=== PATIENT | male | born 1955 | race Caucasian/White ===

== ENCOUNTER → 2017-06-11 | Outpatient (CLI) | payer OTHER ==
[~2017-06-11] MED LIST: ALBU0.08 INH; ALBU1AER9 PO; ATOR-22 PO; ATRINS NEB; ATV/1 PO; CYAN500T PO; DICY10CA55 PO; GLC/500 PO; KETO2SHA5 TOP; PANT1TAB3 PO; SILD100T PO; SYMIN160 INH; TIOT1SPR PO
--- NOTE | 2017-06-11 10:45 | DIAGNOSTIC IMAGING REPORT ---
CHEST 2 VIEWS ROUTINE CLINICAL HISTORY: Shortness of breath. COMPARISON STUDY: Chest CT July 18, 2015 and chest radiograph May 03, 2016. FINDINGS: Severe emphysema is noted. There is mild lung hyperexpansion. No consolidation is identified to suggest pneumonia. Cardiomediastinal silhouette is normal. Pulmonary vascularity is normal. IMPRESSION: 1. No acute cardiopulmonary findings. 2. Severe emphysema. Electronically signed by: Ricardo Fermin M.D. 06/11/2017 10:44 AM Dictated Date/Time: 06/11/2017 10:39 AM
== END | disposition home or self-care (01) ==
LOC: C.RAD1850 10:21
PROVIDERS: ATTEND Physician Assistant
DX: R06.02 Shortness of breath (principal); J43.9 Emphysema, unspecified

== ENCOUNTER 2022-05-23 04:52 | Inpatient (IN) ==
[2022-05-23] MEDS ORDERED: ALBUT/IPRATROP 3MG/0.5MG NEB 3 ML VIAL INH STA (04:57)
[2022-05-23] MEDS ORDERED: methylPREDNISolone 125 MG/2 ML VIAL IV STA (05:09)
--- NOTE | 2022-05-23 05:09 | Emergency Department Note ---
Impression & Plan Hypoxia ADMIT ED Provider Note HPI: The patient is a 67-year-old gentleman with history of COPD, on 4 L nasal cannula oxygen at baseline, presents to the ED with a chief complaint of shortness of breath that is been ongoing since yesterday afternoon. Patient states his symptoms have been worsening since about 230 yesterday afternoon, he denies any chest pain, on arrival here to the ED he is in respiratory distress, has limited air movement bilaterally, he is able to answer my questions in yes or no but is otherwise not conversational. His is assisting with history. Patient was placed on BiPAP shortly after my initial assessment, he did have improvement in his oxygen saturations from 86% to 98% with a nonrebreather mask. ROS: -Pulmonary: Respiratory distress, COPD exacerbation *10 point review systems was conducted and is otherwise negative unless stated above *Outpatient medications and allergy history reviewed PE: General: Alert, moderate distress secondary to increased work of breathing HEENT: Normocephalic, trachea midline Eyes: Extraocular eye movement is intact, no scleral erythema Pulmonary: Diminished air movement bilaterally Cardio: Regular rate and rhythm GI: Abdomen is soft, nontender : No suprapubic tenderness MSK: No evidence of trauma or malformation of the extremities, no edema Skin: No evidence of rash Neuro: Alert, no focal deficits Psychiatric: Cooperative ekg monitor: - An order was placed for continuous cardiac monitoring - Patient was noted to be in sinus rhythm with a rate of 110 EKG: Rate: 121 Rhythm: Sinus tachycardia Intervals: Within normal limits ST changes: No ST elevation Time: 0505 Interventions provided in ED: -DuoNeb breathing treatment, IV Solu-Medrol, oral Tamiflu Medical Decision Making: Patient presented to the emergency department with respiratory distress, he was placed on BiPAP with good improvement in his work of breathing and oxygenation. His venous blood gas shows evidence of acidosis with a pH of 7.26, PCO2 elevated at 101, patient's mentation and work of breathing is greatly improved following initiation of BiPAP. Chest x-ray does not show any evidence of any pneumonia per my interpretation. Lab work shows evidence of leukocytosis, patient did test positive for influenza A, blood cultures were drawn, will hold off on antibiotics given concern for viral infection as opposed to bacterial infection at this time with influenza A positive status. Lab work otherwise shows chronic anemia, troponin is 17.7, patient denies any chest pain, EKG does not show any acute ischemic changes. I discussed admission with the patient, he is in agreement, case was discussed with the on-call hospitalist for [facility], Dr. Martinez, and the patient was admitted in improved condition for further care for acute hypoxic respiratory failure and COPD exacerbation. * CRITICAL CARE TIME: ( 55 ) minutes -Stabilization of hypoxia with oxygen saturations less than 90% despite nasal cannula oxygen requiring noninvasive positive pressure ventilation for correction, time spent at the bedside, interpretation of diagnostic studies, discussion with other physicians and arrangement of admission Diagnosis: 1. Acute hypercarbic respiratory failure with hypoxia 2. Influenza A infection 3. Chronic anemia 4. Leukocytosis, nonspecific Disposition: Admission Mariano Phillips DO Emergency Medicine Past Med/Surg History Medical History (Updated 05/23/22 @ 07:36 by Mariano Phillips DO) Abdominal pain Acute exacerbation of chronic obstructive pulmonary disease (COPD) Acute on chronic respiratory failure with hypoxia and hypercapnia Anxiety Anxiety Blood CO2 increased Chronic dyspnea Chronic hypercapnic respiratory failure Chronic obstructive pulmonary disease WEARS O2 AT 3L CONTINUOUS AT HS 2L O2 DURING DAY PRN Chronic obstructive pulmonary disease COPD exacerbation Dependence on supplemental oxygen Depression DM (diabetes mellitus), type 2 with neurological complications Dyslipidemia End stage COPD Fatty liver Fatty liver GERD (gastroesophageal reflux disease) GERD without esophagitis History of nicotine dependence Hyperlipidemia Hyperlipidemia Hypoxemia Irritable bowel disease Leukocytosis Nocturnal hypoxemia Osteoarthritis Post traumatic stress disorder Pulmonary air trapping Pulmonary emphysema Shortness of breath Surgical History History of cardiac cath NO STENTS History of colonoscopy History of discectomy LUMBAR DISCECTOMY History of herniorrhaphy INGUINAL RT/LEFT History of tonsillectomy History of tooth extraction Family History Unknown Family history of diabetes mellitus Family hx colonic polyps Social History Smoking Status: Former smoker Second Hand Exposure: No; Hx Alcohol Use: No Hx Substance Use: No Preferred Language: Stateless Communication Ability: Effective Visual Impairment: No Limitations Clinical Nurse Required: No Beliefs That Will Affect Care: None Current Living Situation: Spouse Feels Safe at Home: Yes Assistive Devices: Oxygen - Continuous Allergies Allergies Allergy/AdvReac Type Severity Reaction Status Date / Time bupropion Allergy Intermediate RASH Verified 05/02/22 12:08 pravastatin Allergy Mild HIVES Verified 05/02/22 12:08 Home Meds Home Medications Medication Instructions Recorded Confirmed albuterol sulfate 90 mcg/actuation 1 puff inhalation QID PRN 01/30/18 05/02/22 aerosol inhaler Shortness Of Breath aspirin 81 mg chewable tablet 81 mg PO DIRECTED 01/30/18 05/02/22 dicyclomine 10 mg capsule 10 mg PO QID PRN Abdominal Pain 01/30/18 05/02/22 lorazepam 1 mg tablet 1 mg PO TID PRN Anxiety 01/30/18 05/02/22 cyanocobalamin (vitamin B-12) 500 1 mcg sublingual 04/24/21 05/02/22 mcg disintegrating tablet,sublingual ketoconazole 2 % shampoo topical 04/24/21 05/02/22 lancets 30 gauge (OneTouch Delica 04/24/21 05/02/22 Lancets) lancets 30 gauge (OneTouch Delica 04/24/21 05/02/22 Lancets) sildenafil 100 mg tablet (Viagra) mg PO .TAKE DIRECTED. 04/24/21 05/02/22 venlafaxine 37.5 mg 37.5 mg PO DAILY 08/30/21 05/02/22 capsule,extended release 24 hr (Effexor XR) Previous Rx's Medication Instructions Recorded ipratropium 0.5 mg-albuterol 3 mg 3 ml inhalation QID PRN wheezing 06/22/19 (2.5 mg base)/3 mL nebulization #180 mL soln Oxygen Home #1 ea 07/06/20 Miscellaneous Pulmonary Supply #1 ea 08/30/21 Miscellaneous Pulmonary Supply #1 ea 09/01/21 furosemide 20 mg tablet (Lasix) 20 mg PO DAILY #30 tabs 10/09/21 ondansetron 4 mg disintegrating 4 mg PO Q6H PRN nausea and 02/26/22 tablet vomiting #12 tabs tiotropium 2.5 mcg-olodaterol 2.5 2 puff inhalation DAILY #4 grams 05/14/22 mcg/actuation mist for inhalation (Stiolto Respimat) fluticasone furoate 100 1 inh inhalation DAILY #30 ea 05/15/22 mcg/actuation blister powder for inhalation (Arnuity Ellipta) Results & Data (ED) Vital Signs Vital Signs - 24 hr 05/23/22 04:54 05/23/22 05:20 05/23/22 05:26 Temperature 36.6 C Temperature Source Temporal Artery Scan Pulse Rate 107 H Pulse Rate [Finger] Pulse Rate from SpO2 Sensor Respiratory Rate 32 H Respiratory Effort / Characteristics Labored Labored Retracting Tripoding Respiratory Depth Respiratory Pattern Rapid/Shallow Tachypnea Blood Pressure 210/121 H Blood Pressure [Right Arm] Blood Pressure Mean 150 Blood Pressure Mean [Right Arm] Blood Pressure Position Sitting Pulse Oximetry 86 L Oxygen Delivery Method Nasal Cannula BiPAP Oxygen Flow Rate 4 Fraction of Inspired Oxygen Sepsis Recent Fever Within 48 Hours Yes Sepsis New/Unexplained Change in Mental Status No Sepsis Action Taken by Nursing Physician Notified 05/23/22 05:26 05/23/22 05:33 05/23/22 05:36 Temperature Temperature Source Pulse Rate 119 H Pulse Rate [Finger] 110 H Pulse Rate from SpO2 Sensor Respiratory Rate 21 21 Respiratory Effort / Characteristics Spontaneous Labored Short of Breath Spontaneous Labored Short of Breath Respiratory Depth Respiratory Pattern Blood Pressure Blood Pressure [Right Arm] Blood Pressure Mean Blood Pressure Mean [Right Arm] Blood Pressure Position Pulse Oximetry 98 98 98 Oxygen Delivery Method BiPAP BiPAP Oxygen Flow Rate Fraction of Inspired Oxygen 40 40 Sepsis Recent Fever Within 48 Hours Sepsis New/Unexplained Change in Mental Status Sepsis Action Taken by Nursing 05/23/22 05:08 05/23/22 05:30 05/23/22 06:01 Temperature Temperature Source Pulse Rate 119 H 112 H 108 H Pulse Rate [Finger] Pulse Rate from SpO2 Sensor 118 H 112 H 99 H Respiratory Rate 18 23 21 Respiratory Effort / Characteristics Respiratory Depth Respiratory Pattern Blood Pressure 140/99 125/92 165/90 H Blood Pressure [Right Arm] Blood Pressure Mean 112 103 115 Blood Pressure Mean [Right Arm] Blood Pressure Position Pulse Oximetry 98 98 100 Oxygen Delivery Method Oxygen Flow Rate Fraction of Inspired Oxygen Sepsis Recent Fever Within 48 Hours Sepsis New/Unexplained Change in Mental Status Sepsis Action Taken by Nursing 05/23/22 07:08 05/23/22 07:15 Temperature Temperature Source Pulse Rate 101 H Pulse Rate [Finger] 101 H Pulse Rate from SpO2 Sensor Respiratory Rate 21 20 Respiratory Effort / Characteristics Non-Labored Spontaneous Non-Labored Spontaneous Respiratory Depth Normal Normal Respiratory Pattern Regular Blood Pressure Blood Pressure [Right Arm] 133/88 Blood Pressure Mean Blood Pressure Mean [Right Arm] 103 Blood Pressure Position Pulse Oximetry 99 96 Oxygen Delivery Method BiPAP Oxygen Flow Rate Fraction of Inspired Oxygen 30 Sepsis Recent Fever Within 48 Hours Sepsis New/Unexplained Change in Mental Status Sepsis Action Taken by Nursing Laboratory Data Result diagrams: 05/23/22 05:10 05/23/22 05:10 Lab Results 05/23/22 05/23/22 05/23/22 Range/Units 05:05 05:10 05:10 WBC 14.16 H (4.8-10.8) K/ul RBC 4.29 L (4.63-6.08) M/uL Hgb 12.6 L (14.0-18.0) g/dl Hct 40.8 (40.1-51.0) % MCV 95.1 (80.0-100.0) fL MCH 29.4 (25.0-34.0) pg MCHC 30.9 L (32.0-36.0) g/dL RDW Std Deviation 40.9 (36.4-46.3) fL RDW Coeff of Ashley 11.9 (11.5-14.5) % Plt Count 357 (130-400) K/uL MPV 9.8 (9.4-12.4) fL Immature Gran % (Auto) 0.5 % Neut % (Auto) 92.3 % Lymph % (Auto) 2.0 % Nicollet % (Auto) 4.9 % Eos % (Auto) 0.0 % Baso % (Auto) 0.3 % Neut # (Auto) 13.07 H (1.4-6.5) K/uL Lymph # (Auto) 0.29 L (1.2-3.4) K/uL Nicol[place] # (Auto) 0.69 (0.24-0.82) K/uL Eos # (Auto) 0.00 (0-0.50) K/uL Baso # (Auto) 0.04 (0-0.2) K/uL Immature Gran # (Auto) 0.07 H (0.00-0.02) K/uL PT 10.3 (9.0-12.0) Seconds INR 1.0 (0.9-1.1) APTT 27.2 (21.0-31.0) Seconds PTT Ratio 1.0 VBG pH (7.36-7.41) VBG pCO2 (38-50) mmHg VBG pO2 mmHg VBG HCO3 mmol/L VBG O2 Saturation % VBG Base Excess mEq/L Sodium (136-145) mmol/L Potassium (3.5-5.1) mmol/L Chloride (98-107) mmol/L Carbon Dioxide (21-32) mmol/L Anion Gap (3-11) BUN (6-23) mg/dl Creatinine (0.6-1.4) mg/dl Est Cr Clr Drug Dosing Est GFR ( Amer) ml/min Est GFR (Non-Af Amer) ml/min BUN/Creatinine Ratio (10-20) Glucose (70-99(Fasting)) mg/dl Calcium (8.5-10.1) mg/dl Total Bilirubin (0.2-1.0) mg/dl AST (13-39) U/L ALT (7-52) U/L Alkaline Phosphatase (34-104) U/L Troponin I High Sens (0-20) pg/ml Total Protein (6.0-8.3) gm/dl Albumin (3.4-5.0) gm/dl Globulin (2.5-4.0) gm/dl Albumin/Globulin Ratio (0.9-2) SARS-CoV-2 (PCR) NEGATIVE (Negative) Influenza Type A (PCR) Positive A* (Neg) Influenza Type B (PCR) Negative (Neg) RSV (RT-PCR) Negative (Neg) 05/23/22 05/23/22 Range/Units 05:10 05:10 WBC (4.8-10.8) K/ul RBC (4.63-6.08) M/uL Hgb (14.0-18.0) g/dl Hct (40.1-51.0) % MCV (80.0-100.0) fL MCH (25.0-34.0) pg MCHC (32.0-36.0) g/dL RDW Std Deviation (36.4-46.3) fL RDW Coeff of Ashley (11.5-14.5) % Plt Count (130-400) K/uL MPV (9.4-12.4) fL Immature Gran % (Auto) % Neut % (Auto) % Lymph % (Auto) % Nicollet % (Auto) % Eos % (Auto) % Baso % (Auto) % Neut # (Auto) (1.4-6.5) K/uL Lymph # (Auto) (1.2-3.4) K/uL Nicollet # (Auto) (0.24-0.82) K/uL Eos # (Auto) (0-0.50) K/uL Baso # (Auto) (0-0.2) K/uL Immature Gran # (Auto) (0.00-0.02) K/uL PT (9.0-12.0) Seconds INR (0.9-1.1) APTT (21.0-31.0) Seconds PTT Ratio VBG pH 7.26 L (7.36-7.41) VBG pCO2 101 H (38-50) mmHg VBG pO2 62 mmHg VBG HCO3 45 mmol/L VBG O2 Saturation 90.7 % VBG Base Excess 13.5 mEq/L Sodium 138 (136-145) mmol/L Potassium 4.5 (3.5-5.1) mmol/L Chloride 94 L (98-107) mmol/L Carbon Dioxide 37 H (21-32) mmol/L Anion Gap 7 (3-11) BUN 14 (6-23) mg/dl Creatinine 0.85 (0.6-1.4) mg/dl Est Cr Clr Drug Dosing Not Reportable Est GFR ( Amer) 104.5 ml/min Est GFR (Non-Af Amer) 90.2 ml/min BUN/Creatinine Ratio 16.5 (10-20) Glucose 177 H (70-99(Fasting)) mg/dl Calcium 9.2 (8.5-10.1) mg/dl Total Bilirubin 0.3 (0.2-1.0) mg/dl AST 24 (13-39) U/L ALT 18 (7-52) U/L Alkaline Phosphatase 97 (34-104) U/L Troponin I High Sens 17.7 (0-20) pg/ml Total Protein 8.1 (6.0-8.3) gm/dl Albumin 4.7 (3.4-5.0) gm/dl Globulin 3.4 (2.5-4.0) gm/dl Albumin/Globulin Ratio 1.4 (0.9-2) SARS-CoV-2 (PCR) (Negative) Influenza Type A (PCR) (Neg) Influenza Type B (PCR) (Neg) RSV (RT-PCR) (Neg) Administered Medications Discontinued Medications Albuterol (Albut/Ipratrop 3mg/0.5mg Neb 3 Ml Vial) 3 ml INH NOW STA Stop: 05/23/22 04:58 Last Admin: 05/23/22 05:36 Dose: 3 ml Documented By: [email or web address] Methylprednisolone (Methylprednisolone 125 Mg/2 Ml Vial) 125 mg IV NOW STA Stop: 05/23/22 05:10 Last Admin: 05/23/22 05:14 Dose: 125 mg Documented By: HH Oseltamivir Phosphate (Oseltamivir Phosphate 75 Mg Cap) 75 mg PO NOW STA; Protocol Stop: 05/23/22 06:42 Last Admin: 05/23/22 07:16 Dose: 75 mg Documented By: NMS Imaging Data Radiologist's Impression: Chest X-Ray 05/23/22 04:59 XR chest 1V portable CLINICAL HISTORY: Dyspnea. COMPARISON STUDY: Chest CT July 18, 2015. Chest radiograph December 29, 2018. FINDINGS: Severe emphysema is noted. There is no pneumothorax or pleural effusion. There is no consolidation to suggest pneumonia. Cardiac size is normal. Mediastinal contours are normal. IMPRESSION: No acute cardiopulmonary findings. Severe emphysema. ACT 112: Negative or not required by law. Electronically signed by: Ricardo Fermin M.D. 05/23/2022 7:01 AM Discharge Plan Visit Data Chief Complaint: Shortness of Breath/Dyspnea Stated Complaint: SOB, ASPIRATING ED Provider: Mariano Phillips Discharge Problem: Hypoxia Patient Disposition: Admitted As Inpatient Forms Stand Alone Forms: [facility] Prescriptions Prescriptions: No Action ipratropium-albuterol 0.5 mg-3 mg(2.5 mg base)/3 mL solution for nebulization 3 ml INH QID PRN (Reason: wheezing) Qty: 180 3RF (DME) Oxygen Home Liters Per Minute See Rx Instructions .MEDSUPPLY Qty: 1 0RF Rx Instructions: Please provide humidification for the oxygen concentrator. Lifetime need. (DME) Miscellaneous Pulmonary Supply Misc See Rx Instructions .Route Qty: 1 0RF Rx Instructions: Dreamstation AVAPS, NIMV settings should be AVAPS-AE; Breath rate: auto; Inspiratory time: auto; Sigh: off; Tidal Volume: 350-450, PS min: 4-10 PS max: 12-20; EPAP min: 6-10; EPAP max: 10-16; AVAPS rate: 14 during sleep and as needed furosemide [Lasix] 20 mg tablet 20 mg PO DAILY Qty: 30 2RF Stiolto Respimat 2.5-2.5 mcg/actuation mist 2 puff inhalation DAILY Qty: 4 3RF Arnuity Ellipta 100 mcg/actuation blister with device 1 inh inhalation DAILY Qty: 30 2RF ketoconazole 2 % shampoo topical sildenafil [Viagra] 100 mg tablet PO .TAKE DIRECTED. (DME) lancets [OneTouch Delica Lancets] 30 gauge misc See Rx Instructions .Route Rx Instructions: As directed (DME) lancets [OneTouch Delica Lancets] 30 gauge misc See Rx Instructions .Route Rx Instructions: As directed cyanocobalamin (vitamin B-12) 500 mcg tablet,disintegrating 1 mcg sublingual venlafaxine [Effexor XR] 37.5 mg capsule,extended release 24hr 37.5 mg PO DAILY (DME) Miscellaneous Pulmonary Supply Misc See Rx Instructions .Route Qty: 1 0RF Rx Instructions: Trilogy device aspirin 81 mg Tablet,Chewable 81 mg PO DIRECTED Rx Instructions: 2XWK lorazepam 1 mg Tablet 1 mg PO TID PRN (Reason: Anxiety) albuterol sulfate 90 mcg/actuation Hfa Aerosol Inhaler 1 puff INHALATION QID PRN (Reason: Shortness Of Breath) dicyclomine 10 mg Capsule 10 mg PO QID PRN (Reason: Abdominal Pain) ondansetron 4 mg tablet,disintegrating 4 mg PO Q6H PRN (Reason: nausea and vomiting) Qty: 12 0RF Referrals Referrals: PCP,NO [Physician] -
[2022-05-23 05:23] LABS: Hematocrit (blood only) 40.8 % (40.1-51.0); Hemoglobin 12.6 g/dl (14.0-18.0); Mean Corpuscular Hemoglobin 29.4 pg (25.0-34.0); Mean Corpuscular Hgb Conc 30.9 g/dL (32.0-36.0); Mean Corpuscular Volume 95.1 fL (80.0-100.0); Mean Platelet Volume 9.8 fL (9.4-12.4); Platelet Count 357 K/uL (130-400); RDW Coefficient of Variation 11.9 % (11.5-14.5); RDW Standard Deviation 40.9 fL (36.4-46.3); Red Blood Count 4.29 M/uL (4.63-6.08); White Blood Count 14.16 K/ul (4.8-10.8)
[2022-05-23 05:25] LABS: Base Excess VBG 13.5 mEq/L; HCO3 VBG 45 mmol/L; Oxygen Saturation VBG 90.7 %; PCO2 VBG 101 mmHg (38-50); PO2 VBG 62 mmHg; pH VBG 7.26 (7.36-7.41)
[2022-05-23 05:43] LABS: Basophils # (auto) 0.04 K/uL (0-0.2); Basophils % (auto) 0.3 %; Immature Granulocytes # (auto) 0.07 K/uL (0.00-0.02); Immature Granulocytes % (auto) 0.5 %; Lymphocytes # (auto) 0.29 K/uL (1.2-3.4); Monocytes # (auto) 0.69 K/uL (0.24-0.82); Monocytes % (auto) 4.9 %; Neutrophils # (auto) 13.07 K/uL (1.4-6.5); Neutrophils % (auto) 92.3 %; Partial Thromboplastin Time 27.2 Seconds (21.0-31.0); Prothrombin Time 10.3 Seconds (9.0-12.0)
[2022-05-23 05:49] LABS: Troponin I High Sensitivity 17.7 pg/ml (0-20)
[2022-05-23 05:52] LABS: Influenza B virus by PCR Negative (Neg); RSV by PCR Negative (Neg); SARS CoV2 RNA(COVID-19) Ceph NEGATIVE (Negative)
[2022-05-23 05:55] LABS: Alanine Aminotransferase 18 U/L (7-52); Albumin Globulin Ratio 1.4 (0.9-2); Albumin Level 4.7 gm/dl (3.4-5.0); Alkaline Phosphatase 97 U/L (34-104); Anion Gap 7 (3-11); Aspartate Aminotransferase 24 U/L (13-39); BUN Creatinine Ratio 16.5 (10-20); Bilirubin,Total 0.3 mg/dl (0.2-1.0); Blood Urea Nitrogen 14 mg/dl (6-23); Calcium 9.2 mg/dl (8.5-10.1); Carbon Dioxide 37 mmol/L (21-32); Chloride 94 mmol/L (98-107); Est GFR (African American) 104.5 ml/min; Est GFR (Non-African American) 90.2 ml/min; Globulin 3.4 gm/dl (2.5-4.0); Glucose 177 mg/dl (70-99(Fasting)); Potassium 4.5 mmol/L (3.5-5.1); Sodium 138 mmol/L (136-145); Total Protein 8.1 gm/dl (6.0-8.3)
[2022-05-23 06:20] LABS: Influenza A virus by PCR Positive (Neg)
[2022-05-23] MEDS ORDERED: OSELTAMIVIR PHOSPHATE 75 MG CAP PO STA (06:41)
--- NOTE | 2022-05-23 07:02 | XRay Report ---
XR chest 1V portable CLINICAL HISTORY: Dyspnea. COMPARISON STUDY: Chest CT July 18, 2015. Chest radiograph December 29, 2018. FINDINGS: Severe emphysema is noted. There is no pneumothorax or pleural effusion. There is no consol idation to suggest pneumonia. Cardiac size is normal. Mediastinal contours are normal. IMPRESSION: No acute cardiopulmonary findings. Severe emphysema. ACT 112: Negative or not required by law. Electronically signed by: Ricardo Fermin M.D. 05/23/2022 7:01 AM
[2022-05-23] MEDS ORDERED: ACETAMINOPHEN 325 MG TAB PO PRN (07:35)
[2022-05-23] MEDS ORDERED: POLYETHYLENE (MIRALAX) 17 GM PACK PO PRN (07:35)
[2022-05-23] MEDS: Patient's WEIGHT Needed SCH ×2 (08:04→09:04)
[2022-05-23 08:38] LABS: Estimated Average Glucose 114 mg/dl; Hemoglobin A1C 5.6 % (4.5-5.6)
[2022-05-23] MEDS: PANTOprazole 40 MG TAB PO SCH (10:16)
[2022-05-23] MEDS: ENOXAPARIN INJ 40 MG/0.4 ML SYR SQ SCH (10:16)
[2022-05-23] MEDS: VENLAFAXINE HCL XR 75 MG CAPXR PO SCH (10:16)
[2022-05-23] MEDS: LORazepam 1 MG TAB PO PRN ×2 (11:02→18:28)
[2022-05-23 11:30] LABS: Appearance Urine Clear (Clear); Bacteria Urine Automated Negative (Negative); Bilirubin Urine Negative (Negative); Blood Urine Negative (Negative); Color Urine Yellow; Glucose Urine UA Negative (Negative); Ketones Urine Trace (Negative); Leukocyte Esterase Urine Negative (Negative); Nitrite Urine Negative (Negative); Protein Urine 1+ (Negative); Specific Gravity Urine 1.025 (1.000-1.030); Urobilinogen Urine Negative (Negative)
[2022-05-23] MEDS ORDERED: LACTATED RINGER'S 500 ML IV ONE (11:42)
--- NOTE | 2022-05-23 14:24 | History & Physical Report ---
Date of Service May 23, 2022 Assessment & Plan (1) Acute on chronic respiratory failure with hypoxia and hypercapnia: Plan: - presented with hypoxia on 4L NC which is home dose - likely in the setting of influenza A infection - CXR without consolidation - started on BiPAP - wean as tolerated - continue steroids and tamiflu for 5 day course - monitor for response (2) COPD exacerbation: Plan: - likely due to influenza - continue steroids and tamiflu as above - continue home inhalers - duoneb prn or shortness of breath (3) Leukocytosis: Plan: - likely due to steroid use a patient ook 60-80mg prior to admission and received 125mg solumedrol in ED - will monitor for now (4) Anxiety: Plan: - stable - continue home venlafaxine - ativan 1mg po prn for anxiety (5) GERD (gastroesophageal reflux disease): Plan: - continue ppi Plan DVT ppx: Lovenox Code Status: Full Code Dispo: PCU Florentin Cross MD Hospital Medicine Admission and Anticipated Discharge Date Admission Date: May 23, 2022 History of Present Illness Chief Complaint: Hypoxia Primary Care Provider: Kanchan Martinez MD The patient is a 67 year old man with COPD/chronic hypoxemic respiratory failure on home O2 4L NC, anxiety, GERD presented with 1 day of increased shortness of breath. He reports that yesterday he felt short of breath and felt like he could not catch his breath. He denied any change in his chronic cough, which is mild at baseline. Denied any fever or chills, decreased PO intake, n/v/d, abdominal pain. Reports he is on 4L of O2 by NC at home and has very limited functional status due to his respiratory status. He reports receiving his flu and COVID vaccines and is up to date on these. He has a home "rescue" p ack for his COPD and started on prednisone 60mg the day prior to admission. Has not had to use steroids for several months prior to this episode. In the ED, vitals were signficant for SpO2 86% on 4L NC, HR 100s. Labs were significant for WBC 14, pH 7.26, pCO2 101, HCO3- 37, influenza A positive. CXR without consolidation. He was given Tamiflu, started on BiPAP and admitted to medicine. Allergies Allergy/AdvReac Type Severity Reaction Status Date / Time bupropion Allergy Intermediate RASH Verified 05/02/22 12:08 pravastatin Allergy Mild HIVES Verified 05/02/22 12:08 Home Medications Medication Instructions Recorded Confirmed Type albuterol sulfate 90 mcg/actuation 1 puff inhalation QID PRN 01/30/18 05/02/22 History aerosol inhaler Shortness Of Breath aspirin 81 mg chewable tablet 81 mg PO DIRECTED 01/30/18 05/02/22 History dicyclomine 10 mg capsule 10 mg PO QID PRN Abdominal Pain 01/30/18 05/02/22 History lorazepam 1 mg tablet 1 mg PO TID PRN Anxiety 01/30/18 05/02/22 History ipratropium 0.5 mg-albuterol 3 mg 3 ml inhalation QID PRN wheezing 06/22/19 08/30/21 Rx (2.5 mg base)/3 mL nebulization #180 mL soln Oxygen Home #1 ea 07/06/20 05/02/22 Rx cyanocobalamin (vitamin B-12) 500 1 mcg sublingual 04/24/21 05/02/22 History mcg disintegrating tablet,sublingual ketoconazole 2 % shampoo topical 04/24/21 05/02/22 History lancets 30 gauge (OneTouch Delica 04/24/21 05/02/22 History Lancets) lancets 30 gauge (OneTouch Delica 04/24/21 05/02/22 History Lancets) sildenafil 100 mg tablet (Viagra) mg PO .TAKE DIRECTED. 04/24/21 05/02/22 History Miscellaneous Pulmonary Supply #1 ea 08/30/21 05/02/22 Rx venlafaxine 37.5 mg 37.5 mg PO DAILY 08/30/21 05/02/22 History capsule,extended release 24 hr (Effexor XR) Miscellaneous Pulmonary Supply #1 ea 09/01/21 05/02/22 Rx furosemide 20 mg tablet (Lasix) 20 mg PO DAILY #30 tabs 10/09/21 05/02/22 Rx ondansetron 4 mg disintegrating 4 mg PO Q6H PRN nausea and 02/26/22 05/02/22 Rx tablet vomiting #12 tabs tiotropium 2.5 mcg-olodaterol 2.5 2 puff inhalation DAILY #4 grams 05/14/22 Rx mcg/actuation mist for inhalation (Stiolto Respimat) fluticasone furoate 100 1 inh inhalation DAILY #30 ea 05/15/22 Rx mcg/actuation blister powder for inhalation (Arnuity Ellipta) Past Med/Surg History Medical History (Updated 05/23/22 @ 14:21 by Florentin Cross MD) Abdominal pain Acute exacerbation of chronic obstructive pulmonary disease (COPD) Acute on chronic respiratory failure with hypoxia and hypercapnia Anxiety Anxiety Blood CO2 increased Chronic dyspnea Chronic hypercapnic respiratory failure Chronic obstructive pulmonary disease WEARS O2 AT 3L CONTINUOUS AT HS 2L O2 DURING DAY PRN Chronic obstructive pulmonary disease COPD exacerbation Dependence on supplemental oxygen Depression DM (diabetes mellitus), type 2 with neurological complications Dyslipidemia End stage COPD Fatty liver Fatty liver GERD (gastroesophageal reflux disease) GERD without esophagitis History of nicotine dependence Hyperlipidemia Hyperlipidemia Hypoxemia Irritable bowel disease Leukocytosis Nocturnal hypoxemia Osteoarthritis Post traumatic stress disorder Pulmonary air trapping Pulmonary emphysema Shortness of breath Surgical History History of cardiac cath NO STENTS History of colonoscopy History of discectomy LUMBAR DISCECTOMY History of herniorrhaphy INGUINAL RT/LEFT History of tonsillectomy History of tooth extraction Family History Unknown Family history of diabetes mellitus Family hx colonic polyps Social History Smoking Status: Former smoker Second Hand Exposure: No; Hx Alcohol Use: No Hx Substance Use: No Preferred Language: Swedish Communication Ability: Effective Visual Impairment: No Limitations Church Worker Required: No Beliefs That Will Affect Care: None Current Living Situation: Spouse Feels Safe at Home: Yes Assistive Devices: Oxygen - Continuous Review of Systems Review of Systems: All systems reviewed & are unremarkable except as noted in Subjective Physical Exam Physical Exam: General: Alert, mild distress secondary to increased work of breathing on BiPAP HEENT: Normocephalic, trachea midline Eyes: Extraocular eye movement is intact, no scleral erythema Pulmonary: Diminished air movement bilaterally, mild expiratory wheezing noted in lower lung [place], no rhonchi Cardio: tachycardic, RR GI: Abdomen is soft, nontender : No suprapubic tenderness MSK: No evidence of trauma or malformation of the extremities, no edema Skin: No evidence of rash Neuro: Alert, no focal deficits Psychiatric: Cooperative, euthymic Results & Data Results & Data ([facility]) Vital Signs (Past 12 Hours) Vital Signs Temp Pulse Pulse Resp BP BP Pulse Ox 05/23/22 13:33 108 H 20 122/88 97 05/23/22 13:33 05/23/22 12:46 108 H 20 129/86 96 05/23/22 11:19 109 H 22 137/85 93 05/23/22 11:13 91 05/23/22 10:29 108 H 20 131/91 94 05/23/22 09:05 107 H 20 136/91 95 05/23/22 07:15 101 H 20 133/88 96 05/23/22 07:08 101 H 21 99 05/23/22 06:01 108 H 21 165/90 H 100 05/23/22 05:30 112 H 23 125/92 98 05/23/22 05:08 119 H 18 140/99 98 05/23/22 05:36 110 H 21 98 05/23/22 05:33 119 H 21 98 05/23/22 05:26 98 05/23/22 05:26 05/23/22 04:54 36.6 C 107 H 32 H 210/121 H 86 L Pulse Ox O2 Del Method O2 Del Method O2 Flow Rate O2 Flow Rate FiO2 05/23/22 13:33 Nasal Cannula 4 05/23/22 13:33 97 Nasal Cannula 4 05/23/22 12:46 Nasal Cannula 4 05/23/22 11:19 Nasal Cannula 4 05/23/22 11:13 05/23/22 10:29 BiPAP 05/23/22 09:05 BiPAP 05/23/22 07:15 BiPAP 05/23/22 07:08 30 05/23/22 06:01 05/23/22 05:30 05/23/22 05:08 05/23/22 05:36 BiPAP 40 05/23/22 05:33 40 05/23/22 05:26 BiPAP 05/23/22 05:26 BiPAP 05/23/22 04:54 Nasal Cannula 4 Diagnostic Findings Laboratory Results WBC 14.16 K/ul (4.8-10.8) H 05/23/22 05:10 RBC 4.29 M/uL (4.63-6.08) L 05/23/22 05:10 Hgb 12.6 g/dl (14.0-18.0) L 05/23/22 05:10 Hct 40.8 % (40.1-51.0) 05/23/22 05:10 MCV 95.1 fL (80.0-100.0) 05/23/22 05:10 MCH 29.4 pg (25.0-34.0) 05/23/22 05:10 MCHC 30.9 g/dL (32.0-36.0) L 05/23/22 05:10 RDW Std Deviation 40.9 fL (36.4-46.3) 05/23/22 05:10 RDW Coeff of Ashley 11.9 % (11.5-14.5) 05/23/22 05:10 Plt Count 357 K/uL (130-400) 05/23/22 05:10 MPV 9.8 fL (9.4-12.4) 05/23/22 05:10 Immature Gran % (Auto) 0.5 % 05/23/22 05:10 Neut % (Auto) 92.3 % 05/23/22 05:10 Lymph % (Auto) 2.0 % 05/23/22 05:10 [place] % (Auto) 4.9 % 05/23/22 05:10 Eos % (Auto) 0.0 % 05/23/22 05:10 Baso % (Auto) 0.3 % 05/23/22 05:10 Neut # (Auto) 13.07 K/uL (1.4-6.5) H 05/23/22 05:10 Lymph # (Auto) 0.29 K/uL (1.2-3.4) L 05/23/22 05:10 [place] # (Auto) 0.69 K/uL (0.24-0.82) 05/23/22 05:10 Eos # (Auto) 0.00 K/uL (0-0.50) 05/23/22 05:10 Baso # (Auto) 0.04 K/uL (0-0.2) 05/23/22 05:10 Immature Gran # (Auto) 0.07 K/uL (0.00-0.02) H 05/23/22 05:10 PT 10.3 Seconds (9.0-12.0) 05/23/22 05:10 INR 1.0 (0.9-1.1) 05/23/22 05:10 APTT 27.2 Seconds (21.0-31.0) 05/23/22 05:10 PTT Ratio 1.0 05/23/22 05:10 VBG pH 7.26 (7.36-7.41) L 05/23/22 05:10 VBG pCO2 101 mmHg (38-50) H 05/23/22 05:10 VBG pO2 62 mmHg 05/23/22 05:10 VBG HCO3 45 mmol/L 05/23/22 05:10 VBG O2 Saturation 90.7 % 05/23/22 05:10 VBG Base Excess 13.5 mEq/L 05/23/22 05:10 Sodium 138 mmol/L (136-145) 05/23/22 05:10 Potassium 4.5 mmol/L (3.5-5.1) 05/23/22 05:10 Chloride 94 mmol/L (98-107) L 05/23/22 05:10 Carbon Dioxide 37 mmol/L (21-32) H 05/23/22 05:10 Anion Gap 7 (3-11) 05/23/22 05:10 BUN 14 mg/dl (6-23) 05/23/22 05:10 Creatinine 0.85 mg/dl (0.6-1.4) 05/23/22 05:10 Est Cr Clr Drug Dosing Not Reportable 05/23/22 05:10 Est GFR ( Amer) 104.5 ml/min 05/23/22 05:10 Est GFR (Non-Af Amer) 90.2 ml/min 05/23/22 05:10 BUN/Creatinine Ratio 16.5 (10-20) 05/23/22 05:10 Glucose 177 mg/dl (70-99(Fasting)) H 05/23/22 05:10 Estimat Average Glucose 114 mg/dl 05/23/22 05:10 Hemoglobin A1c 5.6 % (4.5-5.6) 05/23/22 05:10 Calcium 9.2 mg/dl (8.5-10.1) 05/23/22 05:10 Total Bilirubin 0.3 mg/dl (0.2-1.0) 05/23/22 05:10 AST 24 U/L (13-39) 05/23/22 05:10 ALT 18 U/L (7-52) 05/23/22 05:10 Alkaline Phosphatase 97 U/L (34-104) 05/23/22 05:10 Troponin I High Sens 17.7 pg/ml (0-20) 05/23/22 05:10 Total Protein 8.1 gm/dl (6.0-8.3) 05/23/22 05:10 Albumin 4.7 gm/dl (3.4-5.0) 05/23/22 05:10 Globulin 3.4 gm/dl (2.5-4.0) 05/23/22 05:10 Albumin/Globulin Ratio 1.4 (0.9-2) 05/23/22 05:10 Urine Color Yellow 05/23/22 11:14 Urine Appearance Clear (Clear) 05/23/22 11:14 Urine pH 5.0 (4.5-7.5) 05/23/22 11:14 Ur Specific [place] 1.025 (1.000-1.030) 05/23/22 11:14 Urine Protein 1+ (Negative) H 05/23/22 11:14 Urine Glucose (UA) Negative (Negative) 05/23/22 11:14 Urine Ketones Trace (Negative) H 05/23/22 11:14 Urine Blood Negative (Negative) 05/23/22 11:14 Urine Nitrite Negative (Negative) 05/23/22 11:14 Urine Bilirubin Negative (Negative) 05/23/22 11:14 Urine Urobilinogen Negative (Negative) 05/23/22 11:14 Ur Leukocyte Esterase Negative (Negative) 05/23/22 11:14 Urine WBC (Auto) 1-5 /hpf (0-5) 05/23/22 11:14 Urine RBC (Auto) 5-10 /hpf (0-4) H 05/23/22 11:14 U Hyaline Cast (Auto) 5-10 /lpf (0-5) H 05/23/22 11:14 U Epithel Cells (Auto) 10-20 /lpf (0-5) H 05/23/22 11:14 Urine Bacteria (Auto) Negative (Negative) 05/23/22 11:14 SARS-CoV-2 (PCR) NEGATIVE (Negative) 05/23/22 05:05 Influenza Type A (PCR) Positive (Neg) A* 05/23/22 05:05 Influenza Type B (PCR) Negative (Neg) 05/23/22 05:05 RSV (RT-PCR) Negative (Neg) 05/23/22 05:05 Impressions Chest X-Ray 05/23/22 04:59 XR chest 1V portable CLINICAL HISTORY: Dyspnea. COMPARISON STUDY: Chest CT July 18, 2015. Chest radiograph December 29, 2018. FINDINGS: Severe emphysema is noted. There is no pneumothorax or pleural effusion. There is no consolidation to suggest pneumonia. Cardiac size is nor mal. Mediastinal contours are normal. IMPRESSION: No acute cardiopulmonary findings. Severe emphysema. ACT 112: Negative or not required by law. Electronically signed by: Ricardo Fermin M.D. 05/23/2022 7:01 AM Medications Administered Current Inpatient Medications Acetaminophen (Acetaminophen 325 Mg Tab) 650 mg PO Q4H PRN PRN Reason: Pain or Fever Stop: 06/22/22 07:34 Enoxaparin Sodium (Enoxaparin Inj 40 Mg/0.4 Ml Syr) 40 mg SQ DAILY [facility] Stop: 06/22/22 09:59 Last Admin: 05/23/22 10:16 Dose: 40 mg Lorazepam (Lorazepam 1 Mg Tab) 1 mg PO Q8 PRN PRN Reason: anxiety Stop: 06/22/22 09:27 Last Admin: 05/23/22 11:02 Dose: 1 mg Oseltamivir Phosphate (Oseltamivir Phosphate 75 Mg Cap) 75 mg PO BID [facility]; Protocol Stop: 05/28/22 20:59 Pantoprazole Sodium (Pantoprazole 40 Mg Tab) 40 mg PO DAILY [facility] Stop: 06/22/22 09:29 Last Admin: 05/23/22 10:16 Dose: 40 mg Polyethylene Glycol (Polyethylene (Miralax) 17 Gm Pack) 17 gm PO DAILY PRN PRN Reason: Constipation Stop: 06/22/22 07:34 Prednisone (Prednisone 20 Mg Tab) 20 mg PO DAILY [facility] Stop: 06/26/22 10:59 Venlafaxine HCl (Venlafaxine Hcl Xr 75 Mg Capxr) 75 mg PO QAM [facility] Stop: 06/22/22 09:29 Last Admin: 05/23/22 10:16 Dose: 75 mg Code Status & VTE Plan Code Status Full code VTE Prophylaxis Plan VTE Prophylaxis will be ordered: Yes
[2022-05-23] MEDS: ALBUT/IPRATROP 3MG/0.5MG NEB 3 ML VIAL NEB PRN (19:09)
[2022-05-23] MEDS: FLUTICASONE/VILANTEROL 100/25MCG 14 PUFFS/INHALER INH SCH (20:28)
[2022-05-23] MEDS: OSELTAMIVIR PHOSPHATE 75 MG CAP PO SCH (20:47)
[2022-05-24] MEDS ORDERED: NURSING DECISION MEDICATION ONE (00:45)
[2022-05-24] MEDS ORDERED: COUGH DROP (SUGAR FREE) LOZ 24 LOZ/1 BOX BUCCAL ONE (00:46)
[2022-05-24] MEDS ORDERED: COUGH DROP (SUGAR FREE) LOZ 24 LOZ/1 BOX BUCCAL PRN (00:48)
[2022-05-24] MEDS: LORazepam 1 MG TAB PO PRN ×3 (02:32→19:20)
--- NOTE | 2022-05-24 05:34 | Electrocardiogram Report ---
Test Reason : Blood Pressure : / mmHG Vent. Rate : 121 BPM Atrial Rate : 121 BPM P-R Int : 130 ms QRS Dur : 096 ms QT Int : 294 ms P-R-T Axes : 092 075 018 degrees QTc Int : 417 ms Poor data quality, interpretation may be adversely affected Sinus tachycardia Low voltage QRS Incomplete right bundle branch block Abnormal ECG When compared with ECG of 26-FEB-2018 12:20, Incomplete right bundle branch block is now Present Confirmed by Zander Montilla ([id number]) on 05/24/2022 5:34:03 AM Referred By: REFERRED SELF Confirmed By:Zander Montilla
[2022-05-24 06:25] LABS: Basophils # (auto) 0.02 K/uL (0-0.2); Basophils % (auto) 0.2 %; Eosinophils # (auto) 0.01 K/uL (0-0.50); Eosinophils % (auto) 0.1 %; Hematocrit (blood only) 36.5 % (40.1-51.0); Hemoglobin 11.3 g/dl (14.0-18.0); Immature Granulocytes # (auto) 0.04 K/uL (0.00-0.02); Immature Granulocytes % (auto) 0.4 %; Lymphocytes # (auto) 0.71 K/uL (1.2-3.4); Mean Corpuscular Hemoglobin 29.2 pg (25.0-34.0); Mean Corpuscular Volume 94.3 fL (80.0-100.0); Mean Platelet Volume 10.3 fL (9.4-12.4); Monocytes # (auto) 1.34 K/uL (0.24-0.82); Monocytes % (auto) 15.1 %; Neutrophils # (auto) 6.77 K/uL (1.4-6.5); Neutrophils % (auto) 76.2 %; Platelet Count 310 K/uL (130-400); RDW Coefficient of Variation 12.1 % (11.5-14.5); RDW Standard Deviation 41.5 fL (36.4-46.3); Red Blood Count 3.87 M/uL (4.63-6.08); White Blood Count 8.89 K/ul (4.8-10.8)
[2022-05-24 06:43] LABS: Albumin Globulin Ratio 1.4 (0.9-2); Albumin Level 4.1 gm/dl (3.4-5.0); BUN Creatinine Ratio 20.5 (10-20); Bilirubin,Total 0.3 mg/dl (0.2-1.0); Calcium 9.3 mg/dl (8.5-10.1); Creatinine Clr Calc Pharmacy 94.5 ml/min; Est GFR (Non-African American) 88.9 ml/min; Globulin 2.9 gm/dl (2.5-4.0); Magnesium 2.1 mg/dl (1.7-2.4); Phosphorus 3.2 mg/dl (2.5-4.9); Potassium 4.4 mmol/L (3.5-5.1)
[2022-05-24] MEDS: OSELTAMIVIR PHOSPHATE 75 MG CAP PO SCH ×2 (08:30→20:06)
[2022-05-24] MEDS: VENLAFAXINE HCL XR 75 MG CAPXR PO SCH (08:30)
[2022-05-24] MEDS: UMECLIDINIUM BROMIDE 62.5MCG/BLISTER 7 PUFFS/INHALER INH SCH (08:31)
[2022-05-24] MEDS ORDERED: predniSONE 20 MG TAB PO SCH (09:00)
[2022-05-24] MEDS: ENOXAPARIN INJ 40 MG/0.4 ML SYR SQ SCH (09:18)
[2022-05-24] MEDS: PANTOprazole 40 MG TAB PO SCH (09:18)
--- NOTE | 2022-05-24 09:45 | Hospitalist Progress Note ---
Date of Service May 24, 2022 Assessment & Plan (1) Acute on chronic respiratory failure with hypoxia and hypercapnia: Plan: - presented with hypoxia on 4L NC which is home dose - likely in the setting of influenza A infection - CXR without consolidation - started on BiPAP - now on home O2 by NC 4L - continue steroids and tamiflu for 5 day course - monitor for response (2) COPD exacerbation: Plan: - likely due to influenza - continue steroids and Tamiflu as above - continue home inhalers - duoneb prn for shortness of breath (3) Leukocytosis: Plan: - likely due to steroid use a patient ook 60-80mg prior to admission and received 125mg Solumedrol in ED - resolved (4) Anxiety: Plan: - stable - continue home venlafaxine - ativan 1mg po prn for anxiety (5) GERD (gastroesophageal reflux disease): Plan: - continue ppi Plan DVT ppx: Lovenox Code Status: Full Code Dispo: PCU Florentin Cross MD Hospital Medicine Admission and Anticipated Discharge Date Admission Date: May 23, 2022 Subjective Patient with COPD on home O2 4L NC, anxiety, GERD presented with acute on chronic hypercapneic, hypoxic respiratory failure and COPD exacerbation likely due to Influenza A infection. He was started on Tamiflu and steroids with improvement. Initially hypoxic on home O2 but is now at baseline respiratory status. Patient feels better today, still with KEVIN that is slightly worse than baseline. Denies chest pain, cough, fever or chills, n/v/d, abdominal pain, dysuria. He endorses a good appetite today. Review of Systems Review of Systems: All systems reviewed & are unremarkable except as noted in Subjective Physical Exam Physical Exam: General: Alert, mild distress secondary to increased work of breathing on BiPAP HEENT: Normocephalic, trachea midline Eyes: Extraocular eye movement is intact, no scleral erythema Pulmonary: Diminished air movement bilaterally, no wheezing, no rhonchi Cardio: tachycardic, RR GI: Abdomen is soft, nontender : No suprapubic tenderness MSK: No evidence of trauma or malformation of the extremities, no edema Skin: No evidence of rash Neuro: Alert, no focal deficits Psychiatric: Cooperative, euthymic Results & Data Results & Data ([facility]) Vital Signs (Past 12 Hours) Vital Signs Temp Pulse Resp BP BP Pulse Ox O2 Del Method 05/24/22 07:17 36.6 C 94 H 22 146/87 H 100 Nasal Cannula 05/24/22 03:04 36.7 C 101 H 21 145/84 H 100 Nasal Cannula 05/24/22 00:17 36.7 C 97 H 20 166/96 H 100 Nasal Cannula O2 Flow Rate 05/24/22 07:17 4 05/24/22 03:04 4 05/24/22 00:17 4 Diagnostic Findings Laboratory Results WBC 8.89 K/ul (4.8-10.8) 05/24/22 05:57 RBC 3.87 M/uL (4.63-6.08) L 05/24/22 05:57 Hgb 11.3 g/dl (14.0-18.0) L 05/24/22 05:57 Hct 36.5 % (40.1-51.0) L 05/24/22 05:57 MCV 94.3 fL (80.0-100.0) 05/24/22 05:57 MCH 29.2 pg (25.0-34.0) 05/24/22 05:57 MCHC 31.0 g/dL (32.0-36.0) L 05/24/22 05:57 RDW Std Deviation 41.5 fL (36.4-46.3) 05/24/22 05:57 RDW Coeff of Ashley 12.1 % (11.5-14.5) 05/24/22 05:57 Plt Count 310 K/uL (130-400) 05/24/22 05:57 MPV 10.3 fL (9.4-12.4) 05/24/22 05:57 Immature Gran % (Auto) 0.4 % 05/24/22 05:57 Neut % (Auto) 76.2 % 05/24/22 05:57 Lymph % (Auto) 8.0 % 05/24/22 05:57 [place] % (Auto) 15.1 % 05/24/22 05:57 Eos % (Auto) 0.1 % 05/24/22 05:57 Baso % (Auto) 0.2 % 05/24/22 05:57 Neut # (Auto) 6.77 K/uL (1.4-6.5) H 05/24/22 05:57 Lymph # (Auto) 0.71 K/uL (1.2-3.4) L 05/24/22 05:57 [place] # (Auto) 1.34 K/uL (0.24-0.82) H 05/24/22 05:57 Eos # (Auto) 0.01 K/uL (0-0.50) 05/24/22 05:57 Baso # (Auto) 0.02 K/uL (0-0.2) 05/24/22 05:57 Immature Gran # (Auto) 0.04 K/uL (0.00-0.02) H 05/24/22 05:57 PT 10.3 Seconds (9.0-12.0) 05/23/22 05:10 INR 1.0 (0.9-1.1) 05/23/22 05:10 APTT 27.2 Seconds (21.0-31.0) 05/23/22 05:10 PTT Ratio 1.0 05/23/22 05:10 VBG pH 7.26 (7.36-7.41) L 05/23/22 05:10 VBG pCO2 101 mmHg (38-50) H 05/23/22 05:10 VBG pO2 62 mmHg 05/23/22 05:10 VBG HCO3 45 mmol/L 05/23/22 05:10 VBG O2 Saturation 90.7 % 05/23/22 05:10 VBG Base Excess 13.5 mEq/L 05/23/22 05:10 Sodium 140 mmol/L (136-145) 05/24/22 05:57 Potassium 4.4 mmol/L (3.5-5.1) 05/24/22 05:57 Chloride 96 mmol/L (98-107) L 05/24/22 05:57 Carbon Dioxide 42 mmol/L (21-32) H* 05/24/22 05:57 Anion Gap 2 (3-11) L 05/24/22 05:57 BUN 18 mg/dl (6-23) 05/24/22 05:57 Creatinine 0.88 mg/dl (0.6-1.4) 05/24/22 05:57 Est Cr Clr Drug Dosing 94.5 ml/min 05/24/22 05:57 Est GFR ( Amer) 103.0 ml/min 05/24/22 05:57 Est GFR (Non-Af Amer) 88.9 ml/min 05/24/22 05:57 BUN/Creatinine Ratio 20.5 (10-20) H 05/24/22 05:57 Glucose 110 mg/dl (70-99(Fasting)) H 05/24/22 05:57 Estimat Average Glucose 114 mg/dl 05/23/22 05:10 Hemoglobin A1c 5.6 % (4.5-5.6) 05/23/22 05:10 Calcium 9.3 mg/dl (8.5-10.1) 05/24/22 05:57 Phosphorus 3.2 mg/dl (2.5-4.9) 05/24/22 05:57 Magnesium 2.1 mg/dl (1.7-2.4) 05/24/22 05:57 Total Bilirubin 0.3 mg/dl (0.2-1.0) 05/24/22 05:57 AST 32 U/L (13-39) 05/24/22 05:57 ALT 19 U/L (7-52) 05/24/22 05:57 Alkaline Phosphatase 74 U/L (34-104) 05/24/22 05:57 Troponin I High Sens 17.7 pg/ml (0-20) 05/23/22 05:10 Total Protein 7.0 gm/dl (6.0-8.3) 05/24/22 05:57 Albumin 4.1 gm/dl (3.4-5.0) 05/24/22 05:57 Globulin 2.9 gm/dl (2.5-4.0) 05/24/22 05:57 Albumin/Globulin Ratio 1.4 (0.9-2) 05/24/22 05:57 Urine Color Yellow 05/23/22 11:14 Urine Appearance Clear (Clear) 05/23/22 11:14 Urine pH 5.0 (4.5-7.5) 05/23/22 11:14 Ur Specific [place] 1.025 (1.000-1.030) 05/23/22 11:14 Urine Protein 1+ (Negative) H 05/23/22 11:14 Urine Glucose (UA) Negative (Negative) 05/23/22 11:14 Urine Ketones Trace (Negative) H 05/23/22 11:14 Urine Blood Negative (Negative) 05/23/22 11:14 Urine Nitrite Negative (Negative) 05/23/22 11:14 Urine Bilirubin Negative (Negative) 05/23/22 11:14 Urine Urobilinogen Negative (Negative) 05/23/22 11:14 Ur Leukocyte Esterase Negative (Negative) 05/23/22 11:14 Urine WBC (Auto) 1-5 /hpf (0-5) 05/23/22 11:14 Urine RBC (Auto) 5-10 /hpf (0-4) H 05/23/22 11:14 U Hyaline Cast (Auto) 5-10 /lpf (0-5) H 05/23/22 11:14 U Epithel Cells (Auto) 10-20 /lpf (0-5) H 05/23/22 11:14 Urine Bacteria (Auto) Negative (Negative) 05/23/22 11:14 SARS-CoV-2 (PCR) NEGATIVE (Negative) 05/23/22 05:05 Influenza Type A (PCR) Positive (Neg) A* 05/23/22 05:05 Influenza Type B (PCR) Negative (Neg) 05/23/22 05:05 RSV (RT-PCR) Negative (Neg) 05/23/22 05:05 Impressions Chest X-Ray 05/23/22 04:59 XR chest 1V portable CLINICAL HISTORY: Dyspnea. COMPARISON STUDY: Chest CT July 18, 2015. Chest radiograph December 29, 2018. FINDINGS: Severe emphysema is noted. There is no pneumothorax or pleural effusion. There is no consolidation to suggest pneumonia. Cardiac size is normal. Mediastinal contours are normal. IMPRESSION: No acute cardiopulmonary findings. Severe emphysema. ACT 112: Negative or not required by law. Electronically signed by: Ricardo Fermin M.D. 05/23/2022 7:01 AM Medications Administered Current Inpatient Medications Acetaminophen (Acetaminophen 325 Mg Tab) 650 mg PO Q4H PRN PRN Reason: Pain or Fever Stop: 06/22/22 07:34 Albuterol (Albut/Ipratrop 3mg/0.5mg Neb 3 Ml Vial) 3 ml NEB Q4R PRN; Protocol PRN Reason: shortness of breath Stop: 06/22/22 14:59 Last Admin: 05/23/22 19:09 Dose: 3 ml Enoxaparin Sodium (Enoxaparin Inj 40 Mg/0.4 Ml Syr) 40 mg SQ DAILY [facility] OF [facility] Stop: 06/22/22 09:59 Last Admin: 05/24/22 09:18 Dose: 40 mg Fluticasone/Vilanterol (Fluticasone/Vilanterol 100/25mcg 14 Puffs/Inhaler) 1 puffs INH PM ON LICENSE OF [facility] Stop: 06/22/22 20:59 Last Admin: 05/23/22 20:28 Dose: 1 puffs Lorazepam (Lorazepam 1 Mg Tab) 1 mg PO Q8 PRN PRN Reason: anxiety Stop: 06/22/22 09:27 Last Admin: 05/24/22 08:50 Dose: 1 mg Menthol (Cough Drop (Sugar Free) Sarah 24 Sarah/1 Box) 1 sarah BUCCAL PRN PRN PRN Reason: Cough Stop: 06/23/22 00:47 Oseltamivir Phosphate (Oseltamivir Phosphate 75 Mg Cap) 75 mg PO BID ON [facility] OF [facility]; Protocol Stop: 05/28/22 20:59 Last Admin: 05/24/22 08:30 Dose: 75 mg Pantoprazole Sodium (Pantoprazole 40 Mg Tab) 40 mg PO DAILY [facility] Stop: 06/22/22 09:29 Last Admin: 05/24/22 09:18 Dose: 40 mg Polyethylene Glycol (Polyethylene (Miralax) 17 Gm Pack) 17 gm PO DAILY PRN PRN Reason: Constipation Stop: 06/22/22 07:34 Prednisone (Prednisone 20 Mg Tab) 20 mg PO DAILY [facility] Stop: 06/26/22 10:59 Last Admin: 05/24/22 08:30 Dose: 20 mg Umeclidinium [place] (Umeclidinium [place] 62.5mcg/Blister 7 Puffs/Inhaler) 1 puffs INH QAM ON LICENSE OF [facility] Stop: 06/23/22 08:59 Last Admin: 05/24/22 08:31 Dose: 1 puffs Venlafaxine HCl (Venlafaxine Hcl Xr 75 Mg Capxr) 75 mg PO QAM ON [facility] OF [facility] Stop: 06/22/22 09:29 Last Admin: 05/24/22 08:30 Dose: 75 mg
[2022-05-24] MEDS: FLUTICASONE/VILANTEROL 100/25MCG 14 PUFFS/INHALER INH SCH (20:07)
[2022-05-24] MEDS: ALBUT/IPRATROP 3MG/0.5MG NEB 3 ML VIAL NEB PRN (20:13)
[2022-05-25 07:32] LABS: BUN Creatinine Ratio 22.8 (10-20); Calcium 9.1 mg/dl (8.5-10.1); Creatinine Clr Calc Pharmacy 82.5 ml/min; Est GFR (African American) 88.8 ml/min; Est GFR (Non-African American) 76.6 ml/min; Phosphorus 3.1 mg/dl (2.5-4.9); Potassium 3.6 mmol/L (3.5-5.1)
[2022-05-25] MEDS ORDERED: POTASSIUM CHLORIDE CRTAB 20 MEQ TABCR PO STA (07:52)
[2022-05-25] MEDS ORDERED: POTASSIUM CHLORIDE CRTAB 20 MEQ TABCR PO SCH (07:52)
[2022-05-25] MEDS ORDERED: LACTATED RINGER'S 500 ML IV ONE (08:35)
[2022-05-25] MEDS ORDERED: predniSONE 20 MG TAB PO SCH (09:00)
[2022-05-25] MEDS: OSELTAMIVIR PHOSPHATE 75 MG CAP PO SCH (09:49)
[2022-05-25] MEDS: UMECLIDINIUM BROMIDE 62.5MCG/BLISTER 7 PUFFS/INHALER INH SCH (09:50)
[2022-05-25] MEDS: PANTOprazole 40 MG TAB PO SCH (09:50)
[2022-05-25] MEDS: VENLAFAXINE HCL XR 75 MG CAPXR PO SCH (09:50)
[2022-05-25] MEDS: ENOXAPARIN INJ 40 MG/0.4 ML SYR SQ SCH (09:51)
--- NOTE | 2022-05-25 12:39 | Discharge Summary ---
Date of Service May 25, 2022 Admission HPI Per Admitting Provider The patient is a 67 year old man with COPD/chronic hypoxemic respiratory failure on home O2 4L NC, anxiety, GERD presented with 1 day of increased shortness of breath. He reports that yesterday he felt short of breath and felt like he could not catch his breath. He denied any change in his chronic cough, which is mild at baseline. Denied any fever or chills, decreased PO intake, n/v/d, abdominal pain. Reports he is on 4L of O2 by NC at home and has very limited functional status due to his respiratory status. He reports receiving his flu and COVID vaccines and is up to date on these. He has a home "rescue" pack for his COPD and started on prednisone 60mg the day prior to admission. Has not had to use steroids for several months prior to this episode. In the ED, vitals were signficant for SpO2 86% on 4L NC, HR 100s. Labs were significant for WBC 14, pH 7.26, pCO2 101, HCO3- 37, influenza A positive. CXR without consolidation. He was given Tamiflu, started on BiPAP and admitted to medicine. Admission Exam Per Admitting Provider General: Alert, mild distress secondary to increased work of breathing on BiPAP HEENT: Normocephalic, trachea midline Eyes: Extraocular eye movement is intact, no scleral erythema Pulmonary: Diminished air movement bilaterally, mild expiratory wheezing noted in lower lung [place], no rhonchi Cardio: tachycardic, RR GI: Abdomen is soft, nontender : No suprapubic tenderness MSK: No evidence of trauma or malformation of the extremities, no edema Skin: No evidence of rash Neuro: Alert, no focal deficits Psychiatric: Cooperative, euthymic Principal Diagnosis influenza A Discharge Exam General: Alert, mild distress secondary to increased work of breathing on BiPAP HEENT: Normocephalic, trachea midline Eyes: Extraocular eye movement is intact, no scleral erythema Pulmonary: Diminished air movement bilaterally, no wheezing, no rhonchi Cardio: tachycardic, RR GI: Abdomen is soft, nontender : No suprapubic tenderness MSK: No evidence of trauma or malformation of the extremities, no edema Skin: No evidence of rash Neuro: Alert, no focal deficits Psychiatric: Cooperative, euthymic Discharge Data Allergies Allergy/AdvReac Type Severity Reaction Status Date / Time bupropion Allergy Intermediate RASH Verified 05/02/22 12:08 pravastatin Allergy Mild HIVES Verified 05/02/22 12:08 Consultations 05/23/22 06:49 ED Decision to Admit Stat Hospital Course (1) Acute on chronic respiratory failure with hypoxia and hypercapnia: - presented with hypoxia on 4L NC which is home dose - likely in the setting of influenza A infection - CXR without consolidation - started on BiPAP - now on home O2 by NC 4L - continue steroids and tamiflu for 5 day course - ok for discharge home on home O2 4L NC to finish steroid and tamiflu course (2) COPD exacerbation: - likely due to influenza - continue steroids and Tamiflu as above - continue home inhalers (3) Anxiety: - stable - continue home venlafaxine - ativan 1mg po prn for anxiety (4) GERD (gastroesophageal reflux disease): - continue ppi Plan DVT ppx: Lovenox Code Status: Full Code Dispo: PCU Florentin Cross MD [facility] Medicine Total Time Total Time Spent Total Time Spent (In Minutes): 25 Total Time Includes: Examination of the Patient, Discharge Planning and Medication Reconciliation Discharge Plan Discharge Items Patient Disposition: Home - Self-Care Reason For Visit: HYPOXIA, INFLUENZA Discharge Diagnosis: influenza A Activity: Resume your previous activity Non-emergency contact: Primary Care Provider and Manager [employer] Call non-emergency contact if: you have any medication questions and your s ymptoms worsen Follow-up/Referrals: Rivas Coon MD [Physician] - 06/11/22 8:45 am Kanchan Martinez MD [Primary Care Provider] - 05/31/22 10:45 am Diet: Carb Consistent or DM2 and Heart Healthy Addtl Attending Provider Instructions: You were admitted with influenza A infection causing your oxygen to be low. You were given supplemental oxygen on top of your home oxygen and started on Tamiflu as well as steroids for your COPD. You improved and your oxygen requirements went back to your home oxygen of 4L by SD. You should continue to rest and finish your course of Tamiflu and prednisone. You should follow up with your primary care doctor and your Manager [employer] after discharge. Pending Studies at Discharge: No Stand-Alone Forms: My [employer], Smoking Cessation Medications and DC Order Prescriptions: New prednisone 20 mg Tablet 40 mg PO DAILY Qty: 6 0RF oseltamivir [Tamiflu] 75 mg Capsule 75 mg PO BID 3 Days Qty: 6 0RF Continued ipratropium-albuterol 0.5 mg-3 mg(2.5 mg base)/3 mL solution for nebulization 3 ml INH QID PRN (Reason: wheezing) Qty: 180 3RF (DME) Oxygen Home Liters Per Minute See Rx Instructions .MEDSUPPLY Qty: 1 0RF Rx Instructions: Please provide humidification for the oxygen concentrator. Lifetime need. (DME) Miscellaneous Pulmonary Supply Misc See Rx Instructions .Route Qty: 1 0RF Rx Instructions: Dreamstation AVAPS, NIMV settings should be AVAPS-AE; Breath rate: auto; Inspiratory time: auto; Sigh: off; Tidal Volume: 350-450, PS min: 4-10 PS max: 12-20; EPAP min: 6-10; EPAP max: 10-16; AVAPS rate: 14 during sleep and as needed furosemide [Lasix] 20 mg tablet 20 mg PO DAILY Qty: 30 2RF Stiolto Respimat 2.5-2.5 mcg/actuation mist 2 puff inhalation DAILY Qty: 4 3RF Arnuity Ellipta 100 mcg/actuation blister with device 1 inh inhalation DAILY Qty: 30 2RF ketoconazole 2 % shampoo topical sildenafil [Viagra] 100 mg tablet PO .TAKE DIRECTED. (DME) lancets [OneTouch Delica Lancets] 30 gauge misc See Rx Instructions .Route Rx Instructions: As directed (DME) lancets [OneTouch Delica Lancets] 30 gauge misc See Rx Instructions .Route Rx Instructions: As directed cyanocobalamin (vitamin B-12) 500 mcg tablet,disintegrating 1 mcg sublingual venlafaxine [Effexor XR] 37.5 mg capsule,extended release 24hr 37.5 mg PO DAILY (DME) Miscellaneous Pulmonary Supply Misc See Rx Instructions .Route Qty: 1 0RF Rx Instructions: Trilogy device aspirin 81 mg Tablet,Chewable 81 mg PO DIRECTED Rx Instructions: 2XWK lorazepam 1 mg Tablet 1 mg PO TID PRN (Reason: Anxiety) albuterol sulfate 90 mcg/actuation Hfa Aerosol Inhaler 1 puff INHALATION QID PRN (Reason: Shortness Of Breath) dicyclomine 10 mg Capsule 10 mg PO QID PRN (Reason: Abdominal Pain) ondansetron 4 mg tablet,disintegrating 4 mg PO Q6H PRN (Reason: nausea and vomiting) Qty: 12 0RF Discharge Orders: Discharge Order (Routine); Ordered 05/25/22 Ordered By: Florentin Cross Admission Data Admit Date/Time: 05/23/22 07:35 Attending Provider: Florentin Cross Admit Provider: Florentin Cross Primary Care Provider: Kanchan Martinez Other Providers: Braulio Martinez Other Interventions: Discharge Summary Assessment (RN) Last Done: 05/25/22 10:33
== END 2022-05-25 11:25 | disposition home or self-care (01) | DRG 189 ==
LOC: ED 04:52 → EDINP 07:35 → 2S 15:35

== ENCOUNTER 2022-07-05 12:41 | Inpatient (IN) ==
[2022-07-05] MEDS ORDERED: methylPREDNISolone 125 MG/2 ML VIAL IV STA (13:24)
[2022-07-05] MEDS ORDERED: ALBUT/IPRATROP 3MG/0.5MG NEB 3 ML VIAL NEB ONE (13:24)
--- NOTE | 2022-07-05 13:31 | Emergency Department Note ---
History of Present Illness General Chief complaint: Shortness of Breath/Dyspnea Time Seen by Provider: 07/05/22 13:12 Source: patient, RN notes reviewed and old records reviewed (I have reviewed the 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 He saw his doctor recently although he said he was feeling okay at the time but they started on steroids. He takes his rescue inhaler about 4 times a day. He comes in by EMS. He has had no fall or trauma no weight gain no lower extremity edema no significant chest pain he has been having a dry cough at times but no chest pain otherwise. No nausea or vomiting. He says this feels like his COPD exacerbations Home Medications Medication Instructions Recorded Confirmed Type albuterol sulfate 90 mcg/actuation 1 puff inhalation QID PRN 01/30/18 06/05/22 History aerosol inhaler Shortness Of Breath aspirin 81 mg chewable tablet 81 mg PO DIRECTED 01/30/18 06/05/22 History dicyclomine 10 mg capsule 10 mg PO QID PRN Abdominal Pain 01/30/18 06/05/22 History lorazepam 1 mg tablet 1 mg PO TID PRN Anxiety 01/30/18 06/05/22 History ipratropium 0.5 mg-albuterol 3 mg 3 ml inhalation QID PRN wheezing 06/22/19 06/05/22 Rx (2.5 mg base)/3 mL nebulization #180 mL soln Oxygen Home #1 ea 07/06/20 06/05/22 Rx cyanocobalamin (vitamin B-12) 500 1 mcg sublingual 04/24/21 06/05/22 History mcg disintegrating tablet,sublingual ketoconazole 2 % shampoo topical 04/24/21 06/05/22 History lancets 30 gauge (OneTouch Delica 04/24/21 06/05/22 History Lancets) lancets 30 gauge (OneTouch Delica 04/24/21 06/05/22 History Lancets) sildenafil 100 mg tablet (Viagra) mg PO .TAKE DIRECTED. 04/24/21 06/05/22 History Miscellaneous Pulmonary Supply #1 ea 08/30/21 06/05/22 Rx venlafaxine 37.5 mg 37.5 mg PO DAILY 08/30/21 06/05/22 History capsule,extended release 24 hr (Effexor XR) Miscellaneous Pulmonary Supply #1 ea 09/01/21 06/05/22 Rx ondansetron 4 mg disintegrating 4 mg PO Q6H PRN nausea and 02/26/22 06/05/22 Rx tablet vomiting #12 tabs prednisone 20 mg tablet 40 mg PO DAILY PRN 06/05/22 History Allergies Allergy/AdvReac Type Severity Reaction Status Date / Time bupropion Allergy Intermediate RASH Verified 05/02/22 12:08 pravastatin Allergy Mild HIVES Verified 05/02/22 12:08 Past Med/Surg History Medical History Abdominal pain Acute exacerbation of chronic obstructive pulmonary disease (COPD) Acute on chronic respiratory failure with hypoxia and hypercapnia Anxiety Anxiety Blood CO2 increased Chronic dyspnea Chronic hypercapnic respiratory failure Chronic obstructive pulmonary disease WEARS O2 AT 3L CONTINUOUS AT HS 2L O2 DURING DAY PRN Chronic obstructive pulmonary disease COPD exacerbation Dependence on supplemental oxygen Depression DM (diabetes mellitus), type 2 with neurological complications Dyslipidemia End stage COPD Fatty liver Fatty liver GERD (gastroesophageal reflux disease) GERD without esophagitis History of nicotine dependence Hyperlipidemia Hyperlipidemia Hypoxemia Irritable bowel disease Nocturnal hypoxemia Osteoarthritis Post traumatic stress disorder Pulmonary air trapping Pulmonary emphysema Shortness of breath Surgical History History of cardiac cath NO STENTS History of colonoscopy History of discectomy LUMBAR DISCECTOMY History of herniorrhaphy INGUINAL RT/LEFT History of tonsillectomy History of tooth extraction Family History Unknown Family history of diabetes mellitus Family hx colonic polyps Social History Smoking Status: Former smoker Second Hand Exposure: No; Hx Alcohol Use: No Hx Substance Use: Yes Substance Use Type Other:: marijuana teenager through 30 years of age Preferred Language: Occitan Communication Ability: Effective Visual Impairment: No Limitations Financial Aid Advisor Required: No Beliefs That Will Affect Care: None Current Living Situation: Spouse Feels Safe at Home: Yes Assistive Devices: Oxygen - Continuous and Scooter/Electric Scooter Review of Systems A total of 10 systems reviewed and were otherwise negative Physical Exam Vital Signs Vital Signs - 24 hr 07/05/22 12:52 07/05/22 12:52 07/05/22 12:52 Temperature 36.4 C L Temperature Source Oral Pulse Rate 114 H Pulse Rate [Apical] Pulse Rhythm [Apical] Pulse Strength [Apical] Respiratory Rate 23 Respiratory Effort / Characteristics Non-Labored Non-Labored Respiratory Depth Normal Normal Respiratory Pattern Regular Regular Blood Pressure 144/105 H Blood Pressure [Right Arm] Blood Pressure Mean 118 Blood Pressure Mean [Right Arm] Pulse Oximetry 100 Oxygen Delivery Method Nasal Cannula Nasal Cannula Oxygen Flow Rate 4 Sepsis Recent Fever Within 48 Hours No Sepsis New/Unexplained Change in Mental Status No Sepsis Action Taken by Nursing No Action Required 07/05/22 12:52 07/05/22 13:24 07/05/22 14:09 Temperature Temperature Source Pulse Rate 108 H Pulse Rate [Apical] 111 H 111 H Pulse Rhythm [Apical] Regular Pulse Strength [Apical] Respiratory Rate 23 20 19 Respiratory Effort / Characteristics Non-Labored Spontaneous Respiratory Depth Respiratory Pattern Blood Pressure Blood Pressure [Right Arm] 104/76 Blood Pressure Mean Blood Pressure Mean [Right Arm] 85 Pulse Oximetry 99 100 100 Oxygen Delivery Method Nasal Cannula Nasal Cannula Nasal Cannula Oxygen Flow Rate 4 4 Sepsis Recent Fever Within 48 Hours Sepsis New/Unexplained Change in Mental Status Sepsis Action Taken by Nursing 07/05/22 15:38 Temperature Temperature Source Pulse Rate Pulse Rate [Apical] 120 H Pulse Rhythm [Apical] Regular Pulse Strength [Apical] Normal Respiratory Rate 20 Respiratory Effort / Characteristics Non-Labored Respiratory Depth Normal Respiratory Pattern Regular Blood Pressure Blood Pressure [Right Arm] 144/103 H Blood Pressure Mean Blood Pressure Mean [Right Arm] 116 Pulse Oximetry 100 Oxygen Delivery Method Nasal Cannula Oxygen Flow Rate 4 Sepsis Recent Fever Within 48 Hours Sepsis New/Unexplained Change in Mental Status Sepsis Action Taken by Nursing General: Well developed well nourished chronically ill-appearing older male who is on baseline 4 L nasal cannula and has mild tachypnea but speaking full sentences and in no acute distress, breathing comfortably on room air. Normal speech HEENT: Normal cephalic atraumatic. Pupils are equal round and reactive to light. Extraocular movements are intact. Oropharynx is pink with moist mucous membranes. No swelling of the mouth lips or tongue. Neck: Supple with a midline trachea. No meningeal signs or stiffness, no JVD or bruits. No Stridor. Chest: Diminished to auscultation bilaterally with scattered wheezes. Mild mild increased work of breathing. Heart: Regular rate and rhythm without murmurs or gallops. Abdomen: Soft nontender, nondistended without rebound guarding or rigidity. Extremities: No cyanosis clubbing, Trace bilateral lower extremity edema. No calf tenderness or assymetry Spine/Back. Non tender to palpation. No CVA tenderness Skin: Good turgor without rashes. Neurologic exam: Cranial nerves two through 12 are intact. Motor and sensation are intact and symmetrical throughout. Course Administered Medications Discontinued Medications Albuterol (Albut/Ipratrop 3mg/0.5mg Neb 3 Ml Vial) 12 ml NEB ONE ONE; Protocol Stop: 07/05/22 13:25 Last Admin: 07/05/22 14:08 Dose: 12 ml Documented By: STACIA Methylprednisolone (Methylprednisolone 125 Mg/2 Ml Vial) 125 mg IV NOW STA Stop: 07/05/22 13:25 Last Admin: 07/05/22 13:55 Dose: 125 mg Documented By: SHANNAN Medical Decision Making Differential Diagnosis COPD exacerbation, pneumonia, sepsis, arrhythmia, cardiac disease, pneumothorax, PE, COVID, influenza Medical Records Attestation: I reviewed the patient's medical records. Home Medications Current Medication List: was personally reviewed by me Laboratory Data Attestation: I reviewed the patient's lab results. 07/05/22 13:51 07/05/22 13:51 Lab Results 07/05/22 07/05/22 07/05/22 Range/Units 13:51 13:51 13:51 WBC 17.44 H (4.8-10.8) K/ul RBC 3.98 L (4.70-6.10) M/uL Hgb 11.7 L (14.0-18.0) g/dl Hct 38.4 L (42.0-52.0) % MCV 96.5 (80.0-100.0) fL MCH 29.4 (25.0-34.0) pg MCHC 30.5 L (32.0-36.0) g/dL RDW Std Deviation 42.0 (36.4-46.3) fL RDW Coeff of Ashley 11.9 (11.5-14.5) % Plt Count 211 (130-400) K/uL MPV 10.6 (9.4-12.4) fL Immature Gran % (Auto) 0.7 % Neut % (Auto) 89.9 % Lymph % (Auto) 1.5 % Woods % (Auto) 7.6 % Eos % (Auto) 0.1 % Baso % (Auto) 0.2 % Neut # (Auto) 15.68 H (1.40-6.50) K/uL Lymph # (Auto) 0.26 L (1.2-3.4) K/uL Woods # (Auto) 1.33 H (0.11-0.59) K/uL Eos # (Auto) 0.01 (0-0.50) K/uL Baso # (Auto) 0.04 (0-0.2) K/uL Immature Gran # (Auto) 0.12 (0.01-0.20) K/uL PT 10.3 (9.0-12.0) Seconds INR 1.0 (0.9-1.1) APTT 26.2 (21.0-31.0) Seconds PTT Ratio 1.0 Sodium 141 (136-145) mmol/L Potassium 4.5 (3.5-5.1) mmol/L Chloride 95 L (98-107) mmol/L Carbon Dioxide 44 H* (21-32) mmol/L Anion Gap 2 L (3-11) BUN 15 (6-23) mg/dl Creatinine 0.92 (0.6-1.4) mg/dl Est Cr Clr Drug Dosing 90.7 ml/min Est GFR ( Amer) 99.4 ml/min Est GFR (Non-Af Amer) 85.8 ml/min BUN/Creatinine Ratio 16.3 (10-20) Glucose 138 H (70-99(Fasting)) mg/dl Calcium 10.0 (8.5-10.1) mg/dl Total Bilirubin 0.4 (0.2-1.0) mg/dl AST 11 L (13-39) U/L ALT 9 (7-52) U/L Alkaline Phosphatase 95 (34-104) U/L Troponin I High Sens 9.7 (0-20) pg/ml Total Protein 7.4 (6.0-8.3) gm/dl Albumin 4.2 (3.4-5.0) gm/dl Globulin 3.2 (2.5-4.0) gm/dl Albumin/Globulin Ratio 1.3 (0.9-2) Lipase 6 L (11-82) U/L SARS-CoV-2 (PCR) (Negative) Influenza Type A (PCR) (Neg) Influenza Type B (PCR) (Neg) RSV (RT-PCR) (Neg) 07/05/22 Range/Units 14:00 WBC (4.8-10.8) K/ul RBC (4.70-6.10) M/uL Hgb (14.0-18.0) g/dl Hct (42.0-52.0) % MCV (80.0-100.0) fL MCH (25.0-34.0) pg MCHC (32.0-36.0) g/dL RDW Std Deviation (36.4-46.3) fL RDW Coeff of Ashley (11.5-14.5) % Plt Count (130-400) K/uL MPV (9.4-12.4) fL Immature Gran % (Auto) % Neut % (Auto) % Lymph % (Auto) % Woods % (Auto) % Eos % (Auto) % Baso % (Auto) % Neut # (Auto) (1.40-6.50) K/uL Lymph # (Auto) (1.2-3.4) K/uL Woods # (Auto) (0.11-0.59) K/uL Eos # (Auto) (0-0.50) K/uL Baso # (Auto) (0-0.2) K/uL Immature Gran # (Auto) (0.01-0.20) K/uL PT (9.0-12.0) Seconds INR (0.9-1.1) APTT (21.0-31.0) Seconds PTT Ratio Sodium (136-145) mmol/L Potassium (3.5-5.1) mmol/L Chloride (98-107) mmol/L Carbon Dioxide (21-32) mmol/L Anion Gap (3-11) BUN (6-23) mg/dl Creatinine (0.6-1.4) mg/dl Est Cr Clr Drug Dosing ml/min Est GFR ( Amer) ml/min Est GFR (Non-Af Amer) ml/min BUN/Creatinine Ratio (10-20) Glucose (70-99(Fasting)) mg/dl Calcium (8.5-10.1) mg/dl Total Bilirubin (0.2-1.0) mg/dl AST (13-39) U/L ALT (7-52) U/L Alkaline Phosphatase (34-104) U/L Troponin I High Sens (0-20) pg/ml Total Protein (6.0-8.3) gm/dl Albumin (3.4-5.0) gm/dl Globulin (2.5-4.0) gm/dl Albumin/Globulin Ratio (0.9-2) Lipase (11-82) U/L SARS-CoV-2 (PCR) NEGATIVE (Negative) Influenza Type A (PCR) Negative (Neg) Influenza Type B (PCR) Negative (Neg) RSV (RT-PCR) Negative (Neg) Imaging Data Attestation: I personally reviewed and interpreted this imaging study as follows: My Impression: Chest x-ray -no acute infiltrate, failure, pneumothorax Radiologist's Impression: Chest X-Ray 07/05/22 13:24 SINGLE VIEW CHEST CLINICAL HISTORY: Atypical chest pain FINDINGS: 2 AP, portable, upright chest radiographs are compared to study dated 05/23/2022 and correlated with chest CT dated 07/18/2015. The cardiomediastinal silhouette is unremarkable noting atherosclerotic calcification of the thoracic aorta. Advanced emphysema and chronic interstitial thickening is similar to previous. Scarring/atelectasis is present at both lung bases. No airspace consolidation or large pleural effusion is identified. No pneumothorax is seen. The skeletal structures are osteopenic. The bony thorax is grossly intact. IMPRESSION: Advanced emphysematous changes with no acute cardiopulmonary abnormality. ACT 112: Negative or not required by law. Electronically signed by: Edward Guzman M.D. 07/05/2022 2:14 PM ECG Data Attestation: I personally reviewed and interpreted this ECG as follows: Indication: + SOB/dyspnea Rate (beats per minute): 108 Rhythm: + sinus tachycardia ECG Intervals/blocks: + Normal QRS ECG [place]: + Normal ECG ST segments: + Normal ST segments ECG Findings: + Other (Low voltage); no PACs or no PVCs Comparison ECG Date: from (05/06/22) Change: no significant change MDM Narrative This patient comes in as described above. He is oxygen dependent COPD patient who is now short of breath. He says it feels like similar to previous COPD exacerbations. I asked to establish she was given Solu-Medrol 125 mg IV and continuous albuterol Atrovent nebs over an hour. He was tested for COVID inf luenza and RSV multiple blood testing was obtained chest x-ray and EKG were obtained. He was reassessed frequently. Chest x-ray does not show congestive heart failure, pneumonia, pneumothorax. His white counts elevated at 17 however he has been on steroids so that could be playing a role but there could be an infectious component as well. He has no significant anemia. His CO2 on his blood work is mildly elevated at 44 however that is in line with his last several. EKG does not show any ischemic changes. Additionally his troponin was negative. I reassessed him after getting hour-long neb and he said he still did not feel well. He looks a little bit better and is only mildly tachypneic. He complains he does feel nauseated. He was given Zofran 4 mg IV. I do think he needs to be admitted for further treatment and [facility] I talked explained my findings and concerns. He will be admitted Continuous cardiac monitoring: Orders placed in EMR for continuous cardiac monitoring. Upon my interpretation patient noted to be sinus tachycardia with a rate of 110 Impression & Plan SOB (shortness of breath), COPD exacerbation, Lab test negative for COVID-19 virus, Sinus tachycardia Discharge Plan Visit Data Chief Complaint: Shortness of Breath/Dyspnea ED Provider: Jaime Osorio Discharge Problem: SOB (shortness of breath), COPD exacerbation, Lab test negative for COVID-19 virus, Sinus tachycardia Forms Stand Alone Forms: My [facility] Prescriptions Prescriptions: No Action ipratropium-albuterol 0.5 mg-3 mg(2.5 mg base)/3 mL solution for nebulization 3 ml INH QID PRN (Reason: wheezing) Qty: 180 3RF (DME) Oxygen Home Liters Per Minute See Rx Instructions .MEDSUPPLY Qty: 1 0RF Rx Instructions: Please provide humidification for the oxygen concentrator. Lifetime need. (DME) Miscellaneous Pulmonary Supply Misc See Rx Instructions .Route Qty: 1 0RF Rx Instructions: Dreamstation AVAPS, NIMV settings should be AVAPS-AE; Breath rate: auto; Inspiratory time: auto; Sigh: off; Tidal Volume: 350-450, PS min: 4-10 PS max: 12-20; EPAP min: 6-10; EPAP max: 10-16; AVAPS rate: 14 during sleep and as needed ketoconazole 2 % shampoo topical sildenafil [Viagra] 100 mg tablet PO .TAKE DIRECTED. (DME) lancets [OneTouch Delica Lancets] 30 gauge misc See Rx Instructions .Route Rx Instructions: As directed (DME) lancets [OneTouch Delica Lancets] 30 gauge misc See Rx Instructions .Route Rx Instructions: As directed cyanocobalamin (vitamin B-12) 500 mcg tablet,disintegrating 1 mcg sublingual venlafaxine [Effexor XR] 37.5 mg capsule,extended release 24hr 37.5 mg PO DAILY (DME) Miscellaneous Pulmonary Supply Misc See Rx Instructions .Route Qty: 1 0RF Rx Instructions: Trilogy device prednisone 20 mg tablet 40 mg PO DAILY PRN aspirin 81 mg Tablet,Chewable 81 mg PO DIRECTED Rx Instructions: 2XWK lorazepam 1 mg Tablet 1 mg PO TID PRN (Reason: Anxiety) albuterol sulfate 90 mcg/actuation Hfa Aerosol Inhaler 1 puff INHALATION QID PRN (Reason: Shortness Of Breath) dicyclomine 10 mg Capsule 10 mg PO QID PRN (Reason: Abdominal Pain) ondansetron 4 mg tablet,disintegrating 4 mg PO Q6H PRN (Reason: nausea and vomiting) Qty: 12 0RF Referrals Referrals: Kanchan Martinez MD [Primary Care Provider] -
--- NOTE | 2022-07-05 14:15 | XRay Report ---
SINGLE VIEW CHEST CLINICAL HISTORY: Atypical chest pain FINDINGS: 2 AP, portable, upright chest radiographs are compared to study dated 05/23/2022 and correl ated with chest CT dated 07/18/2015. The cardiomediastinal silhouette is unremarkable noting atheroscl erotic calcification of the thoracic aorta. Advanced emphysema and chronic interstitial thickening is similar to previous. Scarring/atelectasis is present at both lung bases. No airspace consolidation o r large pleural effusion is identified. No pneumothorax is seen. The skeletal structures are osteopen ic. The bony thorax is grossly intact. IMPRESSION: Advanced emphysematous changes with no acute cardiopulmonary abnormality. ACT 112: Negative or not required by law. Electronically signed by: Edward Guzman M.D. 07/05/2022 2:14 PM
[2022-07-05 14:16] LABS: Basophils # (auto) 0.04 K/uL (0-0.2); Basophils % (auto) 0.2 %; Eosinophils # (auto) 0.01 K/uL (0-0.50); Eosinophils % (auto) 0.1 %; Hematocrit (blood only) 38.4 % (42.0-52.0); Hemoglobin 11.7 g/dl (14.0-18.0); Immature Granulocytes # (auto) 0.12 K/uL (0.01-0.20); Immature Granulocytes % (auto) 0.7 %; Lymphocytes # (auto) 0.26 K/uL (1.2-3.4); Lymphocytes % (auto) 1.5 %; Mean Corpuscular Hemoglobin 29.4 pg (25.0-34.0); Mean Corpuscular Hgb Conc 30.5 g/dL (32.0-36.0); Mean Corpuscular Volume 96.5 fL (80.0-100.0); Mean Platelet Volume 10.6 fL (9.4-12.4); Monocytes # (auto) 1.33 K/uL (0.11-0.59); Monocytes % (auto) 7.6 %; Neutrophils # (auto) 15.68 K/uL (1.40-6.50); Neutrophils % (auto) 89.9 %; Platelet Count 211 K/uL (130-400); RDW Coefficient of Variation 11.9 % (11.5-14.5); Red Blood Count 3.98 M/uL (4.70-6.10); White Blood Count 17.44 K/ul (4.8-10.8)
[2022-07-05 14:26] LABS: Partial Thromboplastin Time 26.2 Seconds (21.0-31.0); Prothrombin Time 10.3 Seconds (9.0-12.0)
[2022-07-05 14:58] LABS: Influenza A virus by PCR Negative (Neg); Influenza B virus by PCR Negative (Neg); RSV by PCR Negative (Neg); SARS CoV2 RNA(COVID-19) Ceph NEGATIVE (Negative)
[2022-07-05 15:46] LABS: Albumin Globulin Ratio 1.3 (0.9-2); Albumin Level 4.2 gm/dl (3.4-5.0); BUN Creatinine Ratio 16.3 (10-20); Bilirubin,Total 0.4 mg/dl (0.2-1.0); Creatinine Clr Calc Pharmacy 90.7 ml/min; Est GFR (African American) 99.4 ml/min; Est GFR (Non-African American) 85.8 ml/min; Globulin 3.2 gm/dl (2.5-4.0); Potassium 4.5 mmol/L (3.5-5.1); Total Protein 7.4 gm/dl (6.0-8.3); Troponin I High Sensitivity 9.7 pg/ml (0-20)
[2022-07-05] MEDS ORDERED: ONDANSETRON INJ 2 MG/ML 2 ML VIAL IV STA (15:59)
--- NOTE | 2022-07-05 16:21 | History & Physical Report ---
Date of Service July 05, 2022 Assessment & Plan (1) Acute and chronic respiratory failure: (2) COPD exacerbation: (3) Respiratory acidosis: (4) Dependence on supplemental oxygen: (5) Anxiety: (6) Dyslipidemia: (7) GERD without esophagitis: Plan 67-year-old male chronic respiratory failure secondary to COPD exacerbation. Treat with IV steroids, nebs, Mucinex, IV antibiotics pending blood culture results. Chronic respiratory failure: COPD exacerbation: Hypoxia with home O2 dependence. 4 LNC supplemental O2 at home Takes fluticasone; continue Chest x-ray: Emphysematous changes IV Solu-Medrol every 12 Nebs 4 times daily and every 2 as needed Sputum culture pending Flutter valve 4 times daily ISP every while awake Lactate negative Procalcitonin negative Ceftriaxone IV; blood cultures pending; adjust antibiotics as necessary based on results Pulmonary consultation if worsening ABG pending; if acidotic patient receptive to BiPAP. PT/OT Anxiety: Takes venlafaxine 150 mg every morning and Ativan 1 mg p.o. every 8; continue GERD without esophagitis: Takes omeprazole; continue Disposition: PCP: Dr. Martinez CODE STATUS: Full code VTE prophylaxis: Lovenox SQ A total of 86 minutes was spent with greater than 50% of that time personally reviewing all current laboratory work and diagnostic imaging studies obtained in the ED. Additionally, I was able to review the patients past medication reconciliation and history with direct visualization in the patients chart. Included in the time above, a portion of that time was spent assessing the patient while discussing and collaborating with specialists, if necessary, and making medical decisions regarding orders to be placed. All of the aforementioned completed while collaborating with Dr. Mao for a full treatment plan. Please see her addendum for further details. History of Present Illness Chief Complaint: Shortness of breath Primary Care Provider: Kanchan Martinez MD Mr. Jacinto is a 67-year-old male that presents today with shortness of breath, fever, chills and productive cough that has been occurring over the past 3 days. Patient has chronic respiratory failure related to COPD for which he uses 4 L NC supplemental O2 at baseline at home. He states that his has been ill as well and his overall appetite has been down and he has been more sedentary. Chest x-ray reveals emphysema with chronic change. Some leukocytosis WBC 17.44; otherwise labs appear unremarkable. Creatinine 0.9. Negative for COVID, flu, RSV. Patient denies headache, dizziness, visual changes, auditory changes, recent falls or trauma, nausea, vomiting, diarrhea, abdominal pain, urinary changes. Patient sitting upright in his bed and able to have conversation but does appear to be tight in his chest. He has diminished posterior breath sounds with some expiratory wheezes. He is overall weak but is AOx4. Additional past medical history includes COPD, anxiety, depression, and GERD. Received steroids in ED; will continue with nebulizer treatments 4 times daily and every 2 as needed while obtaining sputum culture and continuation of IV antibiotics with ceftriaxone. Will alter based on blood culture results. Patient will be admitted for further evaluation and management. Please see A/P for further details Allergies Allergy/AdvReac Type Severity Reaction Status Date / Time bupropion Allergy Intermediate RASH Verified 05/02/22 12:08 pravastatin Allergy Mild HIVES Verified 05/02/22 12:08 Home Medications Medication Instructions Recorded Confirmed Type lorazepam 1 mg tablet 1 mg PO Q8 01/30/18 07/05/22 History Oxygen Home #1 ea 07/06/20 07/05/22 Rx lancets 30 gauge (OneTouch Delica 04/24/21 07/05/22 History Lancets) Miscellaneous Pulmonary Supply #1 ea 08/30/21 07/05/22 Rx prednisone 20 mg tablet 40 mg PO QAM PRN x5 days 06/05/22 07/05/22 History omeprazole 40 mg capsule,delayed 40 mg PO DAILYBB 07/05/22 07/05/22 History release venlafaxine 75 mg tablet 150 mg PO QAM 07/05/22 07/05/22 History Past Med/Surg History Medical History (Updated 07/05/22 @ 20:42 by Gissel Mao, ) Abdominal pain Acute exacerbation of chronic obstructive pulmonary disease (COPD) Acute on chronic respiratory failure with hypoxia and hypercapnia Anxiety Anxiety Blood CO2 increased Chronic dyspnea Chronic hypercapnic respiratory failure Chronic obstructive pulmonary disease WEARS O2 AT 3L CONTINUOUS AT HS 2L O2 DURING DAY PRN Chronic obstructive pulmonary disease Chronic respiratory failure COPD exacerbation Dependence on supplemental oxygen Depression DM (diabetes mellitus), type 2 with neurological complications Dyslipidemia End stage COPD Fatty liver Fatty liver GERD (gastroesophageal reflux disease) GERD without esophagitis History of nicotine dependence Hyperlipidemia Hyperlipidemia Hypoxemia Irritable bowel disease Nocturnal hypoxemia Osteoarthritis Post traumatic stress disorder Pulmonary air trapping Pulmonary emphysema Shortness of breath Surgical History History of cardiac cath NO STENTS History of colonoscopy History of discectomy LUMBAR DISCECTOMY History of herniorrhaphy INGUINAL RT/LEFT History of tonsillectomy History of tooth extraction Family History Unknown Family history of diabetes mellitus Family hx colonic polyps Social History Smoking Status: Former smoker Second Hand Exposure: No; Hx Alcohol Use: No Hx Substance Use: Yes Substance Use Type Other:: marijuana teenager through 30 years of age Preferred Language: Kinyarwanda Communication Ability: Effective Visual Impairment: No Limitations Supply Clerk Required: No Beliefs That Will Affect Care: None Current Living Situation: Spouse Feels Safe at Home: Yes Assistive Devices: Oxygen - Continuous and Scooter/Electric Scooter Review of Systems Review of Systems: Neuro: (-) Falls, trauma, slurred speech HEENT: (-) DELAROSA, dizziness, dysphagia, visual or auditory changes CV: (-) CP, palpitations, swelling Resp: (+) SOB GI: (-) appetite changes, N/V/D, bowel changes : (-) urinary changes Skin: (-) rashes Psych: (-) anxiety, depression Physical Exam Physical Exam: Neuro: AAOx4, PERRLA, no aphagia, memory changes, CNII-XII grossly intact HEENT: head normocephalic, moist mucus membranes CV: S1/S2, (-) M/G/R, (-) edema, cap refill < 3 seconds Resp: Lungs decreased. On 4LNC. GI: Abdomen S/NT/ND, Ax4 bowel sounds, (-) CVA tenderness Musculoskeletal: 5/5 B/L UE strength, 5/5 B/L LE strength. No gait disturbance Skin: (-) rashes , (-) erythema. Psych: euthymic, but flat mood Results & Data Results & Data ([facility]) Vital Signs (Past 12 Hours) Vital Signs Temp Pulse Pulse Resp BP BP Pulse Ox 07/05/22 15:38 120 H 20 144/103 H 100 07/05/22 14:09 111 H 19 100 07/05/22 13:24 108 H 20 100 07/05/22 12:52 111 H 23 104/76 99 07/05/22 12:52 07/05/22 12:52 36.4 C L 114 H 23 144/105 H 100 O2 Del Method O2 Flow Rate 07/05/22 15:38 Nasal Cannula 4 07/05/22 14:09 Nasal Cannula 4 07/05/22 13:24 Nasal Cannula 4 07/05/22 12:52 Nasal Cannula 07/05/22 12:52 Nasal Cannula 07/05/22 12:52 Nasal Cannula 4 Laboratory Results Short CBC 07/05/22 Range/Units 13:51 WBC 17.44 H (4.8-10.8) K/ul Hgb 11.7 L (14.0-18.0) g/dl Hct 38.4 L (42.0-52.0) % Plt Count 211 (130-400) K/uL BMP 07/05/22 13:51 Sodium 141 Potassium 4.5 Chloride 95 L Carbon Dioxide 44 H* BUN 15 Creatinine 0.92 Glucose 138 H Calcium 10.0 Liver Function 07/05/22 Range/Units 13:51 Total Bilirubin 0.4 (0.2-1.0) mg/dl AST 11 L (13-39) U/L ALT 9 (7-52) U/L Alkaline Phosphatase 95 (34-104) U/L Albumin 4.2 (3.4-5.0) gm/dl Diagnostic Findings Chest X-Ray 07/05/22 13:24 SINGLE VIEW CHEST CLINICAL HISTORY: Atypical chest pain FINDINGS: 2 AP, portable, upright chest radiographs are compared to study dated 05/23/2022 and correlated with chest CT dated 07/18/2015. The cardiomediastinal silhouette is unremarkable noting atherosclerotic calcification of the thoracic aorta. Advanced emphysema and chronic interstitial thickening is similar to previous. Scarring/atelectasis is present at both lung bases. No airspace consolidation or large pleural effusion is identified. No pneumothorax is seen. The skeletal structures are osteopenic. The bony thorax is grossly intact. IMPRESSION: Advanced emphysematous changes with no acute cardiopulmonary abnormality. ACT 112: Negative or not required by law. Electronically signed by: Edward Guzman M.D. 07/05/2022 2:14 PM Code Status & VTE Plan Code Status Full code in the event of cardiac or respiratory arrest. VTE Prophylaxis Plan VTE Prophylaxis will be ordered: Yes Supervising Physician Co-Signing Physician Notes I have seen and examined the patient and have discussed the case with YAMILETH Bryan. I agree with the assessment and plan as stated. 67 yo M with chronic respiratory failure 2/2 severe COPD dependent on 4LPM con tinuous oxygen supplementation presents with worsening SOB, fevers, chills and cough over the last few days. He reports having a poor appetite during this time and states is also sick. Denies diarrhea, vomiting or abdominal pain. On physical exam he is using accessory muscles to breathe with an increased respiratory rate and he doesn't appear totally comfortable. Pulmonary auscultation is clear throughout, however, there are very diminished breath sounds if any. He is tachycardic with no murmurs, S1/2 heard. No peripheral edema. Abdomen is soft NTND. He is generally weak without any gross focal neuromuscular deficits. He is mentating clearly and is oriented. Labwork reveals a leukocytosis of 17K, NA 141, K 4.5, CO2 44, BUN 15, creat 0.9. Respiratory viral panel is negative. CXR is clear with chronic emphysematous changes. Agree with plan to treat him for acute on chronic respiratory failure 2/2 COPD exacerbation. Cont with solumedrol 40mg IV q6h, scheduled nebulized bronchodilator therapy, mucinex and ambulation as tolerated. PT/OT to assess safety to return home once improved. Agree with antibiotics to facilitate recovery from insult. Possibly viral in nature given is also sick at home. Cont oxygen supplementation as needed. ABG reflects acute respiratory acidosis. BIPAP ordered now and will keep him NPO except sips and meds until he is breathing better. [place],
--- NOTE | 2022-07-05 18:00 | Communication Note ---
Date of Service: July 05, 2022 HOSPITALIST ADDENDUM: I have seen and examined the patient and have discussed the case with YAMILETH Bryan. I agree with the assessment and plan as stated. 67 yo M with chronic respiratory failure 2/2 severe COPD dependent on 4LPM continuous oxygen supplementation presents with worsening SOB, fevers, chills and cough over the last few days. He reports having a poor appetite during this time and states is also sick. Denies diarrhea, vomiting or abdominal pain. On physical exam he is using accessory muscles to breathe with an increased respiratory rate and he doesn't appear totally comfortable. Pulmonary auscultation is clear throughout, however, there are very diminished breath sounds if any. He is tachycardic with no murmurs, S1/2 heard. No peripheral edema. Abdomen is soft NTND. He is generally weak without any gross focal neuromuscular deficits. He is mentating clearly and is oriented. Labwork reveals a leukocytosis of 17K, NA 141, K 4.5, CO2 44, BUN 15, creat 0.9. Respiratory viral panel is negative. CXR is clear with chronic emphysematous changes. Agree with plan to treat him for acute on chronic respiratory failure 2/2 COPD exacerbation. Cont with solumedrol 40mg IV q6h, scheduled nebulized bronchodilator therapy, mucinex and ambulation as tolerated. PT/OT to assess safety to return home once improved. Agree with antibiotics to facilitate recovery from insult. Possibly viral in nature given is also sick at home. Cont oxygen supplementation as needed. Lactate, procalcitonin and ABG pending. If acute acidosis present, will consider BIPAP. DO Mayco
[2022-07-05] MEDS ORDERED: cefTRIAXone SODIUM 2,000 MG/70 ML BAG IV STA (18:40)
[2022-07-05] MEDS ORDERED: LORazepam 1 MG TAB PO STA (19:16)
[2022-07-05] MEDS: ALBUT/IPRATROP 3MG/0.5MG NEB 3 ML VIAL NEB SCH (19:24)
[2022-07-05 19:43] LABS: Allen Test Pos (Pos); HCO3 ABG 47 mmol/L (19-24); Oxygen Saturation ABG 99.7 % (90-95); PCO2 ABG 105 mmHg (35-46); PO2 ABG 176 mmHg (80-95); pH ABG 7.26 (7.35-7.45)
[2022-07-05] MEDS ORDERED: MECLIZINE HCL 25 MG TAB PO PRN (19:57)
[2022-07-05] MEDS: guaiFENesin 600 MG TABCR PO SCH (20:56)
[2022-07-05] MEDS: ENOXAPARIN INJ 40 MG/0.4 ML SYR SQ SCH (20:56)
[2022-07-05] MEDS: methylPREDNISolone 40 MG in SYRINGE 0 ML IV SCH (20:57)
[2022-07-05] MEDS ORDERED: methylPREDNISolone 40 MG in SYRINGE 0 ML IV SCH (21:00)
[2022-07-05] MEDS: LORazepam 1 MG TAB PO SCH (21:21)
[2022-07-06] MEDS: SODIUM CHLORIDE 0.9% 1000ML 1,000 ML IV SCH ×2 (00:10→08:03)
[2022-07-06] MEDS: methylPREDNISolone 40 MG in SYRINGE 0 ML IV SCH ×4 (03:03→21:55)
[2022-07-06 03:49] LABS: Appearance Urine Clear (Clear); Bacteria Urine Automated Negative (Negative); Bilirubin Urine Negative (Negative); Blood Urine Trace (Negative); Color Urine Dark Yellow; Epithelial Cell Urine Auto 20-30 /lpf (0-5); Glucose Urine UA Negative (Negative); Ketones Urine Trace (Negative); Leukocyte Esterase Urine Negative (Negative); Nitrite Urine Negative (Negative); Protein Urine 2+ (Negative); RBC Urine Automated 0-4 /hpf (0-4); Specific Gravity Urine 1.026 (1.000-1.030); Urobilinogen Urine Negative (Negative); pH Urine 5.5 (4.5-7.5)
[2022-07-06 04:14] LABS: Hematocrit (blood only) 36.7 % (42.0-52.0); Hemoglobin 11.1 g/dl (14.0-18.0); Mean Corpuscular Hemoglobin 29.5 pg (25.0-34.0); Mean Corpuscular Hgb Conc 30.2 g/dL (32.0-36.0); Mean Corpuscular Volume 97.6 fL (80.0-100.0); Mean Platelet Volume 10.4 fL (9.4-12.4); Platelet Count 226 K/uL (130-400); RDW Coefficient of Variation 11.9 % (11.5-14.5); RDW Standard Deviation 42.5 fL (36.4-46.3); Red Blood Count 3.76 M/uL (4.70-6.10); White Blood Count 15.19 K/ul (4.8-10.8)
[2022-07-06 05:40] LABS: BUN Creatinine Ratio 19.8 (10-20); Calcium 9.7 mg/dl (8.5-10.1); Creatinine Clr Calc Pharmacy 82.7 ml/min; Est GFR (African American) 88.8 ml/min; Est GFR (Non-African American) 76.6 ml/min; Magnesium 1.8 mg/dl (1.7-2.4); Potassium 4.5 mmol/L (3.5-5.1)
[2022-07-06] MEDS: LORazepam 1 MG TAB PO SCH ×3 (06:03→21:55)
[2022-07-06] MEDS: PANTOprazole 40 MG TAB PO SCH (06:03)
[2022-07-06] MEDS: ALBUT/IPRATROP 3MG/0.5MG NEB 3 ML VIAL NEB SCH ×4 (07:01→19:37)
--- NOTE | 2022-07-06 08:01 | Pulmonary Consultation ---
Date of Consultation July 06, 2022 Assessment & Plan (1) Chronic obstructive pulmonary disease: (2) Acute exacerbation of chronic obstructive pulmonary disease (COPD): (3) Ex-smoker: (4) Acute on chronic respiratory failure with hypoxia and hypercapnia: Plan Chest x-ray 07/06/2022 personally reviewed: Portable hyperinflated film, right lower lobe haziness appreciated which has been chronic. Bilateral costophrenic and cardiophrenic angles are clean. ABG 07/05/2022: 7.26/105/176 on 5 L -- Acute on chronic hypercapnic Hypoxic respiratory failure Secondary to acute COPD exacerbation COVID-19 PCR, influenza A/B, RSV negative Procalcitonin 0.10 BiPAP nightly and as needed shortness of breath Avoid over oxygenating the patient -- Very severe COPD On Trelegy at home Patient also has AVAPS machine at home but is not compliant with it I will change it to Brovana and budesonide nebulized while in the hospital as I am not sure patient has inspiratory capacity to get the benefit of Trelegy inhaler. PFT 01/01/2020 personally reviewed: FVC 1.83 L 41%, FEV1 0.64 L 18%, RV 276%, TLC 131%, RV/TLC 208%, DLCO 30% Plan: Continue with Solu-Medrol and antibiotics O2 supplementation to keep oxygen saturation between 88-92% Continue with BiPAP nightly and as needed shortness of breath I will change it to Brovana and budesonide nebulized while in the hospital as I am not sure patient has inspiratory capacity to get the benefit of Trelegy inhaler. Follow-up CT chest without contrast Please note the above document was generated using voice recognition software. It may contain grammatical, syntax or spelling errors.Any formal questions or concerns about the content, text or information contained within the body of this dictation should be directly addressed to the provider for clarification. History of Present Illness Attending Physician: Margarita Velasquez MD History of Present Illness 67-year-old male presented to the hospital with complaints of shortness of breath and cough Past medical history: Chronic hypoxic respiratory failure with COPD on 4 L oxyge n at home At the time of examination patient was saturating 97-98% on 3 L nasal cannula. I went down to 1 L as he was still saturating 94%. He was taking a nap. I did wake him up He says that he has been having issues with his breathing since last 3-5 days progressively getting worse He does have cough and is unable to bring it up the phlegm. Denies any hemoptysis Subjective chills. 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 Allergies Allergy/AdvReac Type Severity Reaction Status Date / Time bupropion Allergy Intermediate RASH Verified 05/02/22 12:08 pravastatin Allergy Mild HIVES Verified 05/02/22 12:08 Home Medications Medication Instructions Recorded Confirmed Type lorazepam 1 mg tablet 1 mg PO Q8 01/30/18 07/05/22 History Oxygen Home #1 ea 07/06/20 07/05/22 Rx lancets 30 gauge (OneTouch Delica 04/24/21 07/05/22 History Lancets) Miscellaneous Pulmonary Supply #1 ea 08/30/21 07/05/22 Rx prednisone 20 mg tablet 40 mg PO QAM PRN x5 days 06/05/22 07/05/22 History omeprazole 40 mg capsule,delayed 40 mg PO DAILYBB 07/05/22 07/05/22 History release venlafaxine 75 mg tablet 150 mg PO QAM 07/05/22 07/05/22 History Patient History Medical History (Updated 07/06/22 @ 13:19 by Svetlana Nazario MD, [facility]) Abdominal pain Acute exacerbation of chronic obstructive pulmonary disease (COPD) Acute on chronic respiratory failure with hypoxia and hypercapnia Anxiety Anxiety Blood CO2 increased Chronic dyspnea Chronic hypercapnic respiratory failure Chronic obstructive pulmonary disease WEARS O2 AT 3L CONTINUOUS AT HS 2L O2 DURING DAY PRN Chronic obstructive pulmonary disease Chronic respiratory failure COPD exacerbation Dependence on supplemental oxygen Depression DM (diabetes mellitus), type 2 with neurological complications Dyslipidemia End stage COPD Fatty liver Fatty liver GERD (gastroesophageal reflux disease) GERD without esophagitis History of nicotine dependence Hyperlipidemia Hyperlipidemia Hypoxemia Irritable bowel disease Nocturnal hypoxemia Osteoarthritis Post traumatic stress disorder Pulmonary air trapping Pulmonary emphysema Shortness of breath Surgical History History of cardiac cath NO STENTS History of colonoscopy History of discectomy LUMBAR DISCECTOMY History of herniorrhaphy INGUINAL RT/LEFT History of tonsillectomy History of tooth extraction Family History Unknown Family history of diabetes mellitus Family hx colonic polyps Social History Smoking Status: Former smoker Second Hand Exposure: No; Hx Alcohol Use: No Hx Substance Use: Yes Substance Use Type Other:: marijuana teenager through 30 years of age Preferred Language: Polish Communication Ability: Effective Visual Impairment: No Limitations Machine Woodworking Sander Required: No Beliefs That Will Affect Care: None Current Living Situation: Spouse Feels Safe at Home: Yes Assistive Devices: Oxygen - Continuous and Scooter/Electric Scooter Review of Systems Review of Systems: All systems reviewed & are unremarkable except as noted in HPI & below Physical Exam Physical Exam: Constitutional: No acute distress HEENT: EOMI, PERRLA Respiratory system: Decreased air entry bilaterally, no wheeze, no rhonchi, mild crackles bilateral lower lobes CVS: S1-S2 positive, no murmurs or gallops Abdomen: Soft, nontender, nondistended, positive bowel sounds x4, obese Extremities: +2 pulses bilaterally radialis/ dorsalis pedis, no cyanosis, no edema Neuro: Awake alert oriented x3 Psych: Normal mood and affect G/U: No Payan Skin: no rashes, warm and dry Lymphatic: no cervical or axillary lymphadenopathy Results & Data Results & [facility] ([facility]) Vital Signs (Past 12 Hours) Vital Signs Pulse Pulse Resp BP Pulse Ox O2 Del Method O2 Flow Rate 07/06/22 07:00 115 H 20 128/80 96 Nasal Cannula 4 07/06/22 07:01 115 H 20 99 Nasal Cannula 6 07/06/22 02:22 121 H 20 168/103 H 98 BiPAP 07/05/22 23:37 115 H 24 99 07/05/22 22:51 BiPAP 07/05/22 21:22 117 H 16 148/76 H 95 BiPAP 07/05/22 20:49 124 H 20 100 FiO2 07/06/22 07:00 07/06/22 07:01 07/06/22 02:22 40 07/05/22 23:37 30 07/05/22 22:51 07/05/22 21:22 07/05/22 20:49 40 Laboratory Results 07/06/22 04:00 07/06/22 04:00 PG Care Time/CCT Total # of Minutes Spent Total Time Spent with Patient: Total time spent is greater than 50% in coordination of care (as documented) at patient's floor/unit and/or counseling patient: Coding Level of Care Code 79673 INT INP/OBS CARE 3/75MIN Diagnoses Chronic obstructive pulmonary disease J44.9 Acute exacerbation of chronic obstructive pulmonary disease (COPD) J44.1 Ex-smoker Z87.891 Acute on chronic respiratory failure with hypoxia and hypercapnia J96.21; J96.22
--- NOTE | 2022-07-06 08:18 | XRay Report ---
XR chest 1V portable HISTORY: Shortness of breath. COMPARISON: Chest 07/05/2022. FINDINGS: No pneumothorax. No pleural effusions. The heart is stable in size. There is advanced emphy sema with bibasilar interstitial thickening most pronounced on the right. This has slightly progresse d within the right lung base and may represent a developing pneumonitis. IMPRESSION: Advanced emphysema with progressive interstitial thickening at the right lung base compared to the pr ior studies. This may represent a developing pneumonitis. ACT 112: Negative or not required by law. Electronically signed by: Garrison Bojorquez M.D. 07/06/2022 8:17 AM
[2022-07-06] MEDS: ASPIRIN 81 MG ECTAB PO SCH (08:49)
[2022-07-06] MEDS: VENLAFAXINE HCL 50 MG TAB PO SCH (08:50)
[2022-07-06] MEDS: guaiFENesin 600 MG TABCR PO SCH ×2 (08:50→21:56)
[2022-07-06] MEDS: ENOXAPARIN INJ 40 MG/0.4 ML SYR SQ SCH (08:51)
[2022-07-06] MEDS ORDERED: FLUTICASONE FUROATE 100MCG 14 PUFFS/INHALER INH SCH (09:00)
--- NOTE | 2022-07-06 11:18 | Electrocardiogram Report ---
Test Reason : Blood Pressure : / mmHG Vent. Rate : 108 BPM Atrial Rate : 108 BPM P-R Int : 126 ms QRS Dur : 072 ms QT Int : 326 ms P-R-T Axes : 087 064 047 degrees QTc Int : 436 ms Poor data quality, interpretation may be adversely affected Sinus tachycardia with occasional Premature ventricular complexes Low voltage QRS Nonspecific ST and T wave abnormality Abnormal ECG When compared with ECG of 23-MAY-2022 05:05, No significant change Confirmed by Franklin Cedillo ([id number]) on 07/06/2022 11:17:52 AM Referred By: REFERRED SELF Confirmed By:Franklin Cedillo
--- NOTE | 2022-07-06 12:29 | CT Scan Report ---
CT chest diagnostic wo con CT DOSE: 438.32 mGycm CLINICAL HISTORY: 67 years-old Male with r/o infiltrate/ Edema. Acute shortness of breath TECHNIQUE: Multiaxial CT images of the chest were performed without contrast. A dose lowering techni que was utilized adhering to the principles of ALARA. COMPARISON: Chest radiograph of same day, chest CT 01/28/2020 FINDINGS: No thyroid nodule or lymphadenopathy identified. The heart is normal in size without perica rdial effusion. Unremarkable thoracic aorta and unenhanced pulmonary artery. Trace right pleural effusion. Severe bullous pulmonary emphysema with mild bronchial wall thickening. Mild subsegmental right basilar consolidative opacities. 5 mm nodular density of the right upper lob e on image 160 series 4 was not definitively seen on prior. This may represent a pulmonary nodule or be secondary to pulmonary vessels. 3 mm solid nodule the right middle lobe, image 234. 5 mm fissural nodule of the left upper lobe on image 103 appears more conspicuous than the prior study. 3 mm nodula r density focus of the left upper lobe on image 136. Mild tracheobronchial secretions. Hepatic steatosis. No acute process of the imaged upper abdomen. Unremarkable soft tissues. No acute fracture. IMPRESSION: 1. Severe bullous pulmonary emphysema. 2. Trace right pleural effusion with mild right basilar densities suggestive of probable atelectasis. A mild nonspecific pneumonitis could appear similarly. 3. There are a few scattered low suspicion solid pulmonary nodules as above measuring up to 5 mm. Please refer to below summary of Fleischner criteria recommendations for follow-up of incidental CT n odules (Salma Fletcher, Guidelines for management of small pulmonary nodules detected on CT scans: A sta tement from the Fleischner Society, Radiology 237: [phone].) SOLID NODULES Multiple nodules size: <6 mm * Low risk patients: no routine follow-up * high risk patients: optional CT at 12 months Note: newly detected indeterminate nodule in persons 35 years of age or older. * Low risk patients: minimal or absent history of smoking and/or other known risk factors * high risk patients: history of smoking or of other known risk factors (e.g. first degree relative with lung cancer, or exposure to asbestos, radon, uranium) * if a nodule up to 8 mm is partly solid or is ground glass further follow-up is required after 24 m onths to exclude possible slow growing adenocarcinoma ([facility]) ACT 112: Negative or not required by law. Electronically signed by: Reggie Lopez M.D. 07/06/2022 12:28 PM
--- NOTE | 2022-07-06 16:46 | Hospitalist Progress Note ---
Date of Service July 06, 2022 Assessment & Plan (1) Acute and chronic respiratory failure: (2) COPD exacerbation: (3) Respiratory acidosis: (4) Dependence on supplemental oxygen: (5) Anxiety: (6) Dyslipidemia: (7) GERD without esophagitis: Plan 67-year-old male chronic respiratory failure secondary to COPD exacerbation. Treat with IV steroids, nebs, Mucinex, IV antibiotics pending blood culture results. Chronic respiratory failure: COPD exacerbation: Hypoxia with home O2 dependence. 4 LNC supplemental O2 at home Takes fluticasone; continue Chest x-ray: Emphysematous changes IV Solu-Medrol every 6 hours Nebs 4 times daily and every 2 as needed Sputum culture pending Flutter valve 4 times daily ISP every while awake Lactate negative Procalcitonin negative Ceftriaxone IV; blood cultures pending; adjust antibiotics as necessary based on results Will add doxycycline on top of ceftriaxone to cover atypicals Appreciate pulmonary input and recommendation ABG-pH 7.26, PCO2 105 and's O2 more than 100, bicarb 37 Administered BiPAP and the patient has been feeling much better this afternoon PT/OT Anxiety: Takes venlafaxine 150 mg every morning and Ativan 1 mg p.o. every 8; continue GERD without esophagitis: Takes omeprazole; continue Disposition: PCP: Dr. Martinez CODE STATUS: Full code VTE prophylaxis: Lovenox SQ Admission and Anticipated Discharge Date Admission Date: July 05, 2022 Subjective 07/06/2022 The patient was seen and examined in ER in presence of the He has been feeling much better since admission Breathing is better and there is no wheezing No fever and no chills Review of Systems Review of Systems: All systems reviewed and are unremarkable except as noted below Respiratory: Minimal shortness of breath at rest Physical Exam Physical Exam: Lying in bed comfortably Constitutional: well developed, well nourished, + ill appearing and + obese Eyes: PERRL, conjunctivae normal, anicteric sclerae ENMT: external ear and nose normal, oropharynx normal Neck: trachea midline, no thyromegaly Respiratory: + respiratory distress (Minimal distress at rest) Auscultation: + diminished lung sounds and + crackles (Bibasilar crackles); no wheezes Cardiovascular: Rate/Rhythm: regular rate, regular rhythm and + tachycardic Heart Sounds: normal S1, normal S2 and + murmur Extremities: no edema Gastrointestinal (Abdomen): Inspection/Auscultation: normal bowel sounds; abdomen not distended Percussion/Palpation: abdomen soft; abdomen nontender Musculoskeletal: No acute arthritis in any joint Neurologic: Alert, awake and oriented x3. No focal sensory or motor deficit appreciated Lymphatic: no cervical or axillary lymphadenopathy Results & Data Results & Data ([facility]) Vital Signs (Past 12 Hours) Vital Signs Temp Pulse Pulse Resp BP BP Pulse Ox 07/06/22 16:00 36.7 C 116 H 18 129/72 96 07/06/22 15:18 112 H 22 99 07/06/22 14:34 112 H 20 142/79 H 96 07/06/22 11:06 112 H 20 98 07/06/22 09:21 117 H 22 160/137 H 94 07/06/22 07:00 115 H 20 128/80 96 07/06/22 07:01 115 H 20 99 O2 Del Method O2 Flow Rate 07/06/22 16:00 Nasal Cannula 4 07/06/22 15:18 Nasal Cannula 4 07/06/22 14:34 Nasal Cannula 4 07/06/22 11:06 Nasal Cannula 3.5 07/06/22 09:21 Nasal Cannula 3 07/06/22 07:00 Nasal Cannula 4 07/06/22 07:01 Nasal Cannula 6 Laboratory Results Short CBC 07/06/22 Range/Units 04:00 WBC 15.19 H (4.8-10.8) K/ul Hgb 11.1 L (14.0-18.0) g/dl Hct 36.7 L (42.0-52.0) % Plt Count 226 (130-400) K/uL BMP 07/06/22 04:00 Sodium 139 Potassium 4.5 Chloride 93 L Carbon Dioxide 41 H* BUN 20 Creatinine 1.01 Glucose 163 H Calcium 9.7 Urine 07/06/22 Range/Units 03:34 Urine Color Dark Yellow Urine Appearance Clear (Clear) Urine pH 5.5 (4.5-7.5) Ur Specific [place] 1.026 (1.000-1.030) Urine Protein 2+ H (Negative) Urine Glucose (UA) Negative (Negative) Medications Administered Current Inpatient Medications Albuterol (Albut/Ipratrop 3mg/0.5mg Neb 3 Ml Vial) 3 ml NEB QIDR [facility]; Protocol Stop: 08/04/22 18:59 Last Admin: 07/06/22 15:18 Dose: 3 ml Aspirin (Aspirin 81 Mg Ectab) 81 mg PO DAILY [facility] Stop: 08/05/22 08:59 Last Admin: 07/06/22 08:49 Dose: 81 mg Budesonide (Budesonide 0.5 Mg/2 Ml Vial (Pulmicort)) 0.5 mg NEB BIDR [facility] Stop: 08/05/22 18:59 Enoxaparin Sodium (Enoxaparin Inj 40 Mg/0.4 Ml Syr) 40 mg SQ DAILY [facility] Stop: 08/06/22 08:59 Formoterol Fumarate (Formoterol 20 Mcg/2 Ml Vial) 20 mcg NEB BIDR [facility]1983 Stop: 08/05/22 18:59 Guaifenesin (Guaifenesin 600 Mg Tabcr) 1,200 mg PO Q12 [facility] Stop: 08/04/22 20:59 Last Admin: 07/06/22 08:50 Dose: 1,200 mg Ceftriaxone Sodium 2,000 mg/ (Dextrose) 70 mls @ 100 mls/hr IV Q24H [facility], [facility]; Protocol Stop: 07/13/22 17:59 Methylprednisolone 40 mg/ (Syringe) 0.64 mls @ 1.5 mls/min IV Q6H [facility] Stop: 08/04/22 20:59 Last Admin: 07/06/22 09:49 Dose: 1.5 mls/min Lorazepam (Lorazepam 1 Mg Tab) 1 mg PO Q8 [facility] Stop: 08/04/22 21:59 Last Admin: 07/06/22 14:32 Dose: 1 mg Meclizine HCl (Meclizine Hcl 25 Mg Tab) 25 mg PO TID PRN PRN Reason: Dizziness Stop: 08/04/22 19:56 Pantoprazole Sodium (Pantoprazole 40 Mg Tab) 40 mg PO DAILYBB [facility] Stop: 08/05/22 06:29 Last Admin: 07/06/22 06:03 Dose: 40 mg Umeclidinium [place] (Umeclidinium [place] 62.5mcg/Blister 7 Puffs/Inhaler) 1 puffs INH DAILY [facility] Stop: 08/06/22 08:59 Venlafaxine HCl (Venlafaxine Hcl 50 Mg Tab) 150 mg PO QAM [facility] Stop: 08/05/22 08:59 Last Admin: 07/06/22 08:50 Dose: 150 mg
[2022-07-06] MEDS: cefTRIAXone SODIUM 2,000 MG in DEXTROSE 5% 50 ML IV SCH (17:40)
[2022-07-06] MEDS ORDERED: METOPROLOL TARTRATE 25 MG TAB PO STA (17:42)
--- NOTE | 2022-07-06 17:46 | Communication Note ---
Date of Service: July 06, 2022 Patient developed SVT at a rate of 160s to 170s per minute Without any symptoms and when I saw him the rate came down to 120s sinus We will start a small dose of beta-amor with 12.5 mg p.o. twice daily Will give 12.5 mg stat and another 2.5 mg tonight The patient was reassured Dr Nieves Velasquez
[2022-07-06] MEDS: FORMOTEROL 20 MCG/2 ML VIAL NEB SCH (19:29)
[2022-07-06] MEDS: BUDESONIDE 0.5 MG/2 ML VIAL (PULMICORT) NEB SCH (19:31)
[2022-07-06] MEDS: DOXYCYCLINE HYCLATE 100 MG CAP PO SCH (21:56)
[2022-07-06] MEDS: METOPROLOL TARTRATE 25 MG TAB PO SCH (21:57)
[2022-07-07] MEDS: methylPREDNISolone 40 MG in SYRINGE 0 ML IV SCH ×3 (03:19→21:14)
[2022-07-07] MEDS: LORazepam 1 MG TAB PO SCH ×3 (05:37→21:10)
[2022-07-07] MEDS: PANTOprazole 40 MG TAB PO SCH (05:38)
[2022-07-07] MEDS ORDERED: METOPROLOL TARTRATE 1 MG/ML VIAL IV STA (06:13)
[2022-07-07] MEDS ORDERED: METOPROLOL TARTRATE 25 MG TAB PO STA ×2 (06:16→19:28)
[2022-07-07 06:49] LABS: Basophils # (auto) 0.01 K/uL (0-0.2); Basophils % (auto) 0.1 %; Hematocrit (blood only) 34.7 % (42.0-52.0); Hemoglobin 10.6 g/dl (14.0-18.0); Immature Granulocytes # (auto) 0.07 K/uL (0.01-0.20); Immature Granulocytes % (auto) 0.7 %; Lymphocytes # (auto) 0.38 K/uL (1.2-3.4); Lymphocytes % (auto) 3.7 %; Mean Corpuscular Hemoglobin 29.4 pg (25.0-34.0); Mean Corpuscular Hgb Conc 30.5 g/dL (32.0-36.0); Mean Corpuscular Volume 96.4 fL (80.0-100.0); Mean Platelet Volume 10.6 fL (9.4-12.4); Monocytes % (auto) 5.8 %; Neutrophils # (auto) 9.22 K/uL (1.40-6.50); Neutrophils % (auto) 89.7 %; Platelet Count 233 K/uL (130-400); RDW Coefficient of Variation 11.7 % (11.5-14.5); RDW Standard Deviation 41.2 fL (36.4-46.3); White Blood Count 10.28 K/ul (4.8-10.8)
[2022-07-07] MEDS: BUDESONIDE 0.5 MG/2 ML VIAL (PULMICORT) NEB SCH ×2 (07:20→20:02)
[2022-07-07] MEDS: FORMOTEROL 20 MCG/2 ML VIAL NEB SCH ×2 (07:22→20:02)
[2022-07-07] MEDS: ALBUT/IPRATROP 3MG/0.5MG NEB 3 ML VIAL NEB SCH (07:22)
[2022-07-07 07:32] LABS: BUN Creatinine Ratio 24.3 (10-20); Calcium 10.2 mg/dl (8.5-10.1); Creatinine Clr Calc Pharmacy 81.6 ml/min; Est GFR (African American) 86.7 ml/min; Est GFR (Non-African American) 74.8 ml/min
[2022-07-07 08:24] LABS: Troponin I High Sensitivity 15.2 pg/ml (0-20)
[2022-07-07] MEDS: METOPROLOL TARTRATE 25 MG TAB PO SCH ×2 (09:04→21:10)
[2022-07-07] MEDS: guaiFENesin 600 MG TABCR PO SCH ×2 (09:04→21:12)
[2022-07-07] MEDS: ASPIRIN 81 MG ECTAB PO SCH (09:04)
[2022-07-07] MEDS: VENLAFAXINE HCL 50 MG TAB PO SCH (09:04)
[2022-07-07] MEDS: DOXYCYCLINE HYCLATE 100 MG CAP PO SCH ×2 (09:04→21:10)
[2022-07-07] MEDS: ENOXAPARIN INJ 40 MG/0.4 ML SYR SQ SCH (09:04)
[2022-07-07] MEDS: UMECLIDINIUM BROMIDE 62.5MCG/BLISTER 7 PUFFS/INHALER INH SCH (09:10)
[2022-07-07] MEDS ORDERED: ALBUT/IPRATROP 3MG/0.5MG NEB 3 ML VIAL NEB PRN (10:28)
--- NOTE | 2022-07-07 12:18 | Pulmonology Progress Note ---
Date of Service July 07, 2022 Assessment & Plan (1) Chronic obstructive pulmonary disease: (2) Acute exacerbation of chronic obstructive pulmonary disease (COPD): (3) Ex-smoker: (4) Acute on chronic respiratory failure with hypoxia and hypercapnia: (5) Multiple pulmonary nodules: Plan CT chest 07/06/2022 personally reviewed: Severe centrilobular and paraseptal emphysema appreciated bilaterally No clear consolidative process, multiple small pulmonary nodules appreciated bilaterally No mediastinal lymphadenopathy Chest x-ray 07/06/2022 personally reviewed: Portable hyperinflated film, right lower lobe haziness appreciated which has been chronic. Bilateral costophrenic and cardiophrenic angles are clean. ABG 07/05/2022: 7.26/105/176 on 5 L -- Acute on chronic hypercapnic Hypoxic respiratory failure Secondary to acute COPD exacerbation COVID-19 PCR, influenza A/B, RSV negative Procalcitonin 0.10 BiPAP nightly and as needed shortness of breath Avoid over oxygenating the patient -- Very severe COPD On Trelegy at home Patient also has AVAPS machine at home but is not compliant with it I will change it to Brovana and budesonide nebulized while in the hospital as I am not sure patient has inspiratory capacity to get the benefit of Trelegy inhaler. PFT 01/01/2020 personally reviewed: FVC 1.83 L 41%, FEV1 0.64 L 18%, RV 276%, TLC 131%, RV/TLC 208%, DLCO 30% --Multiple pulmonary nodules appreciated bilaterally Up to 5 mm Repeat screening CAT scan in 1 year --Anxiety Has been on Ativan chronically Plan: Continue with Brovana and budesonide DuoNebs can be changed to ipratropium and levalbuterol if the patient develops SVTs If it is still persistent then only ipratropium nebulized can be given as needed up to q 8 hours Complete the course of doxycycline for 5 days I will add hypertonic saline nebulized and add flutter valve to help bring up the phlegm Can do with BiPAP nightly and as needed shortness of breath Given end-stage COPD, palliative care consult will be beneficial. Morphine has helped patient's to have air hunger in such instances. But we need to make sure that they are not too drowsy as it will make hypercapnia worse Avoid over oxygenating the patient. Keep O2 saturation between 88-92% Case was discussed with Dr. Velasquez Please note the above document was generated using voice recognition software. It may contain grammatical, syntax or spelling errors.Any formal questions or concerns about the content, text or information contained within the body of this dictation should be directly addressed to the provider for clarification. Admission and Anticipated Discharge Date Admission Date: July 05, 2022 Subjective Patient seen and examined at bedside. No acute distress, no adverse events overnight He was saturating 89-90% on 3 L nasal cannula at rest He said he is feeling better still complaining of cough and having difficulty bringing it up Denies any chest pain No headache, no nausea, no vomiting Did use BiPAP overnight. Review of Systems Review of Systems: All systems reviewed & are unremarkable except as noted in Subjective Physical Exam Physical Exam: Constitutional: No acute distress HEENT: EOMI, PERRLA Respiratory system: Decreased air entry bilaterally, no wheeze, no rhonchi, mild crackles bilateral lower lobes CVS: S1-S2 positive, no murmurs or gallops Abdomen: Soft, nontender, nondistended, positive bowel sounds x4, obese Extremities: +2 pulses bilaterally radialis/ dorsalis pedis, no cyanosis, no edema Neuro: Awake alert oriented x3 Psych: Normal mood and affect G/U: No [place] Skin: no rashes, warm and dry Lymphatic: no cervical or axillary lymphadenopathy Results & Data Results & Data ([facility]) Vital Signs (Past 12 Hours) Vital Signs Temp Pulse Pulse Pulse Resp BP BP 07/07/22 11:28 36.4 C L 100 H 16 168/97 H 07/07/22 10:34 07/07/22 10:34 07/07/22 09:00 36.4 C L 93 H 16 169/98 H 07/07/22 08:02 36.6 C 90 20 168/95 H 07/07/22 07:55 36.6 C 116 H 16 182/115 H 07/07/22 07:49 103 H 07/07/22 07:23 101 H 22 07/07/22 06:12 37.1 C 101 H 20 167/94 H 07/07/22 05:27 174 H 07/07/22 03:47 20 07/07/22 02:36 36.7 C 100 H 20 164/87 H 07/07/22 01:31 94 H 07/07/22 01:31 Pulse Ox O2 Del Method O2 Flow Rate FiO2 07/07/22 11:28 97 Nasal Cannula 3 07/07/22 10:34 95 Nasal Cannula 4 07/07/22 10:34 Nasal Cannula 3 07/07/22 09:00 95 Nasal Cannula 3 07/07/22 08:02 93 Nasal Cannula 3 07/07/22 07:55 93 Nasal Cannula 3 07/07/22 07:49 07/07/22 07:23 96 Nasal Cannula 4 07/07/22 06:12 98 Nasal Cannula 4 07/07/22 05:27 07/07/22 03:47 30 07/07/22 02:36 98 BiPAP 07/07/22 01:31 07/07/22 01:31 Nasal Cannula, BiPAP 4 Laboratory Results 07/07/22 06:12 07/07/22 06:12 PG Care Time/CCT Total # of Minutes Spent Total Time Spent with Patient: Total time spent is greater than 50% in coordination of care (as documented) at patient's floor/unit and/or counseling patient: Coding Level of Care Code 28432 SUB INP/OBS CARE 3/50MIN Diagnoses Chronic obstructive pulmonary disease J44.9 Acute exacerbation of chronic obstructive pulmonary disease (COPD) J44.1 Ex-smoker Z87.891 Acute on chronic respiratory failure with hypoxia and hypercapnia J96.21; J96.22 Multiple pulmonary nodules R91.8
--- NOTE | 2022-07-07 13:07 | Electrocardiogram Report ---
Test Reason : Blood Pressure : / mmHG Vent. Rate : 172 BPM Atrial Rate : 141 BPM P-R Int : 000 ms QRS Dur : 104 ms QT Int : 286 ms P-R-T Axes : 000 086 008 degrees QTc Int : 483 ms Poor data quality, interpretation may be adversely affected Supraventricular tachycardia Low voltage QRS Nonspecific ST abnormality Abnormal ECG When compared with ECG of 05-JUL-2022 13:31, Significant changes have occurred Confirmed by Franklin Cedillo ([id number]) on 07/07/2022 1:07:33 PM Referred By: REFERRED SELF Confirmed By:Franklin Cedillo
--- NOTE | 2022-07-07 13:09 | Electrocardiogram Report ---
Test Reason : Blood Pressure : / mmHG Vent. Rate : 170 BPM Atrial Rate : 174 BPM P-R Int : 000 ms QRS Dur : 102 ms QT Int : 284 ms P-R-T Axes : 000 075 015 degrees QTc Int : 477 ms Poor data quality, interpretation may be adversely affected Supraventricular tachycardia Low voltage QRS Nonspecific ST abnormality Abnormal ECG When compared with ECG of 06-JUL-2022 17:23, (unconfirmed) Questionable change in QRS duration Confirmed by Franklin Cedillo ([id number]) on 07/07/2022 1:09:20 PM Referred By: REFERRED SELF Confirmed By:Franklin Cedillo
--- NOTE | 2022-07-07 13:09 | Electrocardiogram Report ---
Test Reason : Blood Pressure : / mmHG Vent. Rate : 170 BPM Atrial Rate : 082 BPM P-R Int : 000 ms QRS Dur : 066 ms QT Int : 274 ms P-R-T Axes : 195 061 -04 degrees QTc Int : 460 ms Poor data quality, interpretation may be adversely affected Probable Supraventricular tachycardia Incomplete right bundle branch block Low voltage QRS Abnormal ECG When compared with ECG of 06-JUL-2022 17:22, (unconfirmed) Questionable change in QRS duration Confirmed by Franklin Cedillo ([id number]) on 07/07/2022 1:08:51 PM Referred By: REFERRED SELF Confirmed By:Franklin Cedillo
--- NOTE | 2022-07-07 13:49 | Hospitalist Progress Note ---
Date of Service July 07, 2022 Assessment & Plan (1) Acute and chronic respiratory failure: (2) COPD exacerbation: (3) Respiratory acidosis: (4) Dependence on supplemental oxygen: (5) Anxiety: (6) Dyslipidemia: (7) GERD without esophagitis: Plan 67-year-old male chronic respiratory failure secondary to COPD exacerbation. Treat with IV steroids, nebs, Mucinex, IV antibiotics pending blood culture results. Chronic respiratory failure: COPD exacerbation: Hypoxia with home O2 dependence. 4 LNC supplemental O2 at home Takes fluticasone; continue Chest x-ray: Emphysematous changes IV Solu-Medrol every 6 hours Nebs 4 times daily and every 2 as needed Sputum culture pending Flutter valve 4 times daily ISP every while awake Lactate negative Procalcitonin negative Ceftriaxone IV; blood cultures pending; adjust antibiotics as necessary based on results Will add doxycycline on top of ceftriaxone to cover atypicals Appreciate pulmonary input and recommendation ABG-pH 7.26, PCO2 105 and's O2 more than 100, bicarb 37 Administered BiPAP and the patient has been feeling much better this afternoon Clinically much better today Will change nebulized solution to every 4 hourly as needed SVT Likely secondary to COPD and hypoxia also being complicated by use of bronchodilators Will make nebulized solutions as needed and continue with inhalers Short lasting Blood pressure was elevated at more than 170 systolic Started on a small dose of beta-amor with 12.5 mg Lopressor twice daily Heart rate seems to be around 100 and in sinus rhythm Anxiety: Takes venlafaxine 150 mg every morning and Ativan 1 mg p.o. every 8; continue Has been taking benzodiazepines 1 mg 3 times daily for a long time Will not touch the dose rather the outpatient provider can help titrating down Has memory impairment and the patient is strongly advised to make an appointment with outpatient neurologist GERD without esophagitis: Takes omeprazole; continue Disposition: PCP: Dr. Martinez CODE STATUS: Full code VTE prophylaxis: Lovenox SQ Admission and Anticipated Discharge Date Admission Date: July 05, 2022 Subjective 07/06/2022 The patient was seen and examined in ER in presence of the He has been feeling much better since admission Breathing is better and there is no wheezing No fever and no chills 07/07/2022 The patient was examined in the in medical telemetry unit He was noted to have a few runs of SVT for about a few minutes Reverted to sinus rhythm and did not have any symptoms during the SVT This morning he has been feeling much better and has been communicating normally Denies any wheezing or increasing shortness of breath Review of Systems Review of Systems: All systems reviewed and are unremarkable except as noted below Respiratory: Minimal shortness of breath at rest Physical Exam Physical Exam: Lying in bed comfortably Constitutional: well developed, well nourished, + ill appearing and + obese Eyes: PERRL, conjunctivae normal, anicteric sclerae ENMT: external ear and nose normal, oropharynx normal Neck: trachea midline, no thyromegaly Respiratory: + respiratory distress (Minimal distress at rest) Auscultation: + diminished lung sounds and + crackles (Bibasilar crackles); no wheezes Cardiovascular: Rate/Rhythm: regular rate, regular rhythm and + tachycardic Heart Sounds: normal S1, normal S2 and + murmur Extremities: no edema Gastrointestinal (Abdomen): Inspection/Auscultation: normal bowel sounds; abdomen not distended Percussion/Palpation: abdomen soft; abdomen nontender Musculoskeletal: No acute arthritis involving any of the joints Neurologic: Alert, awake and oriented x3 Psychiatric: A+Ox3, euthymic affect Lymphatic: no cervical or axillary lymphadenopathy Results & Data Results & Data ([facility] [place]) Vital Signs (Past 12 Hours) Vital Signs Temp Pulse Pulse Pulse Resp BP BP 07/07/22 11:28 36.4 C L 100 H 16 168/97 H 07/07/22 10:34 07/07/22 10:34 07/07/22 09:00 36.4 C L 93 H 16 169/98 H 07/07/22 08:02 36.6 C 90 20 168/95 H 07/07/22 07:55 36.6 C 116 H 16 182/115 H 07/07/22 07:49 103 H 07/07/22 07:23 101 H 22 07/07/22 06:12 37.1 C 101 H 20 167/94 H 07/07/22 05:27 174 H 07/07/22 03:47 20 07/07/22 02:36 36.7 C 100 H 20 164/87 H Pulse Ox O2 Del Method O2 Flow Rate FiO2 07/07/22 11:28 97 Nasal Cannula 3 07/07/22 10:34 95 Nasal Cannula 4 07/07/22 10:34 Nasal Cannula 3 07/07/22 09:00 95 Nasal Cannula 3 07/07/22 08:02 93 Nasal Cannula 3 07/07/22 07:55 93 Nasal Cannula 3 07/07/22 07:49 07/07/22 07:23 96 Nasal Cannula 4 07/07/22 06:12 98 Nasal Cannula 4 07/07/22 05:27 07/07/22 03:47 30 07/07/22 02:36 98 BiPAP Laboratory Results Short CBC 07/07/22 Range/Units 06:12 WBC 10.28 (4.8-10.8) K/ul Hgb 10.6 L (14.0-18.0) g/dl Hct 34.7 L (42.0-52.0) % Plt Count 233 (130-400) K/uL BMP 07/07/22 06:12 Sodium 140 Potassium 4.0 Chloride 94 L Carbon Dioxide 43 H* BUN 25 H Creatinine 1.03 Glucose 135 H Calcium 10.2 H Medications Administered Current Inpatient Medications Albuterol (Albut/Ipratrop 3mg/0.5mg Neb 3 Ml Vial) 3 ml NEB QIDR PRN; Protocol PRN Reason: Wheezing Stop: 08/04/22 18:59 Aspirin (Aspirin 81 Mg Ectab) 81 mg PO DAILY [facility] Stop: 08/05/22 08:59 Last Admin: 07/07/22 09:04 Dose: 81 mg Budesonide (Budesonide 0.5 Mg/2 Ml Vial (Pulmicort)) 0.5 mg NEB BIDR [facility] Stop: 08/05/22 18:59 Last Admin: 07/07/22 07:20 Dose: 0.5 mg Doxycycline Hyclate (Doxycycline Hyclate 100 Mg Cap) 100 mg PO BID [facility] Stop: 07/13/22 20:59 Last Admin: 07/07/22 09:04 Dose: 100 mg Enoxaparin Sodium (Enoxaparin Inj 40 Mg/0.4 Ml Syr) 40 mg SQ DAILY [facility] Stop: 08/06/22 08:59 Last Admin: 07/07/22 09:04 Dose: 40 mg Formoterol Fumarate (Formoterol 20 Mcg/2 Ml Vial) 20 mcg NEB BIDR [facility] Stop: 08/05/22 18:59 Last Admin: 07/07/22 07:22 Dose: 20 mcg Guaifenesin (Guaifenesin 600 Mg Tabcr) 1,200 mg PO Q12 [facility] Stop: 08/04/22 20:59 Last Admin: 07/07/22 09:04 Dose: 1,200 mg Ceftriaxone Sodium 2,000 mg/ (Dextrose) 70 mls @ 100 mls/hr IV Q24H [facility]; [facility] col Stop: 07/13/22 17:59 Last Infusion: 07/06/22 18:43 Dose: Infused Methylprednisolone 40 mg/ (Syringe) 0.64 mls @ 1.5 mls/min IV Q12H [facility] Stop: 08/06/22 08:59 Last Admin: 07/07/22 09:10 Dose: 1.5 mls/min Lorazepam (Lorazepam 1 Mg Tab) 1 mg PO Q8 [facility] Stop: 08/04/22 21:59 Last Admin: 07/07/22 05:37 Dose: 1 mg Meclizine HCl (Meclizine Hcl 25 Mg Tab) 25 mg PO TID PRN PRN Reason: Dizziness Stop: 08/04/22 19:56 Metoprolol Tartrate (Metoprolol Tartrate 25 Mg Tab) 12.5 mg PO BID [facility] Stop: 08/05/22 20:59 Last Admin: 07/07/22 09:04 Dose: 12.5 mg Pantoprazole Sodium (Pantoprazole 40 Mg Tab) 40 mg PO DAILYBB [facility] Stop: 08/05/22 06:29 Last Admin: 07/07/22 05:38 Dose: 40 mg Sodium Chloride (Sodium Chlor 7% 4 Ml Neb) 4 ml NEB BIDR [facility] Stop: 08/06/22 18:59 Umeclidinium [place] (Umeclidinium [place] 62.5mcg/Blister 7 Puffs/Inhaler) 1 puffs INH DAILY [facility] Stop: 08/06/22 08:59 Last Admin: 07/07/22 09:10 Dose: 1 puffs Venlafaxine HCl (Venlafaxine Hcl 50 Mg Tab) 150 mg PO QAM [facility] Stop: 08/05/22 08:59 Last Admin: 07/07/22 09:04 Dose: 150 mg
[2022-07-07] MEDS: cefTRIAXone SODIUM 2,000 MG in DEXTROSE 5% 50 ML IV SCH (17:17)
[2022-07-07] MEDS ORDERED: LORazepam 0.5 MG TAB PO STA (18:22)
[2022-07-07] MEDS ORDERED: METOPROLOL TARTRATE 25 MG TAB PO PRN (19:16)
[2022-07-07] MEDS: SODIUM CHLOR 7% 4 ML NEB NEB SCH (20:03)
[2022-07-08] MEDS ORDERED: XOPENEX/ATROVENT 1.25mg/0.5MG NEB COMBO NEB PRN (01:03)
[2022-07-08] MEDS ORDERED: LEVALBUTEROL 1.25MG/0.5ML NEB INH PRN (01:03)
[2022-07-08] MEDS ORDERED: METOPROLOL TARTRATE 1 MG/ML VIAL IV PRN (01:03)
[2022-07-08] MEDS ORDERED: IPRATROPIUM BROMIDE NEB SOLN 0.02% 2.5 ML VIAL INH PRN (01:03)
[2022-07-08] MEDS: PANTOprazole 40 MG TAB PO SCH (05:41)
[2022-07-08] MEDS: LORazepam 1 MG TAB PO SCH ×2 (05:42→13:44)
[2022-07-08] MEDS: SODIUM CHLOR 7% 4 ML NEB NEB SCH ×2 (07:01→19:12)
[2022-07-08] MEDS: FORMOTEROL 20 MCG/2 ML VIAL NEB SCH ×2 (07:01→19:11)
[2022-07-08] MEDS: BUDESONIDE 0.5 MG/2 ML VIAL (PULMICORT) NEB SCH ×2 (07:01→19:11)
[2022-07-08 07:16] LABS: BUN Creatinine Ratio 24.3 (10-20); Calcium 10.8 mg/dl (8.5-10.1); Creatinine Clr Calc Pharmacy 72.5 ml/min; Est GFR (African American) 75.9 ml/min; Est GFR (Non-African American) 65.5 ml/min; Potassium 4.1 mmol/L (3.5-5.1)
[2022-07-08] MEDS: DOXYCYCLINE HYCLATE 100 MG CAP PO SCH ×2 (08:56→19:43)
[2022-07-08] MEDS: ASPIRIN 81 MG ECTAB PO SCH (08:57)
[2022-07-08] MEDS: ENOXAPARIN INJ 40 MG/0.4 ML SYR SQ SCH (08:57)
[2022-07-08] MEDS: guaiFENesin 600 MG TABCR PO SCH ×2 (08:57→19:51)
[2022-07-08] MEDS: METOPROLOL TARTRATE 25 MG TAB PO SCH ×2 (08:58→19:45)
[2022-07-08] MEDS: VENLAFAXINE HCL 50 MG TAB PO SCH (08:58)
[2022-07-08] MEDS: methylPREDNISolone 40 MG in SYRINGE 0 ML IV SCH ×2 (09:00→22:30)
[2022-07-08] MEDS: UMECLIDINIUM BROMIDE 62.5MCG/BLISTER 7 PUFFS/INHALER INH SCH (09:00)
--- NOTE | 2022-07-08 10:38 | Electrocardiogram Report ---
Test Reason : Blood Pressure : / mmHG Vent. Rate : 096 BPM Atrial Rate : 096 BPM P-R Int : 192 ms QRS Dur : 080 ms QT Int : 330 ms P-R-T Axes : 000 071 064 degrees QTc Int : 416 ms Poor data quality, interpretation may be adversely affected Normal sinus rhythm Low voltage QRS Borderline ECG When compared with ECG of 07-JUL-2022 07:38, (unconfirmed) Incomplete right bundle branch block is no longer Present ST now depressed in Anterolateral leads Confirmed by Franklin Cedillo ([id number]) on 07/08/2022 10:37:51 AM Referred By: REFERRED SELF Confirmed By:Franklin Cedillo
[2022-07-08] MEDS ORDERED: dilTIAZem HCl 60 MG TAB PO ONE (10:41)
--- NOTE | 2022-07-08 11:25 | Pulmonology Progress Note ---
Date of Service July 08, 2022 Assessment & Plan (1) Chronic obstructive pulmonary disease: (2) Acute exacerbation of chronic obstructive pulmonary disease (COPD): (3) Ex-smoker: (4) Acute on chronic respiratory failure with hypoxia and hypercapnia: (5) Multiple pulmonary nodules: Plan CT chest 07/06/2022 personally reviewed: Severe centrilobular and paraseptal emphysema appreciated bilaterally No clear consolidative process, multiple small pulmonary nodules appreciated bilaterally No mediastinal lymphadenopathy Chest x-ray 07/06/2022 personally reviewed: Portable hyperinflated film, right lower lobe haziness appreciated which has been chronic. Bilateral costophrenic and cardiophrenic angles are clean. ABG 07/05/2022: 7.26/105/176 on 5 L -- Acute on chronic hypercapnic Hypoxic respiratory failure Secondary to acute COPD exacerbation COVID-19 PCR, influenza A/B, RSV negative Procalcitonin 0.10 BiPAP nightly and as needed shortness of breath Avoid over oxygenating the patient -- Very severe COPD On Trelegy at home Patient also has AVAPS machine at home but is not compliant with it I will change it to Brovana and budesonide nebulized while in the hospital as I am not sure patient has inspiratory capacity to get the benefit of Trelegy inhaler. PFT 01/01/2020 personally reviewed: FVC 1.83 L 41%, FEV1 0.64 L 18%, RV 276%, TLC 131%, RV/TLC 208%, DLCO 30% --Multiple pulmonary nodules appreciated bilaterally Up to 5 mm Repeat screening CAT scan in 1 year --Anxiety Has been on Ativan chronically -- Metabolic alkalosis Likely compensatory to chronic hypercapnic respiratory failure Plan: Continue with Brovana and budesonide, hypertonic saline and Mucinex Complete the course of doxycycline for 5 days Continue with BiPAP nightly and as needed shortness of breath Avoid over oxygenating the patient. Keep O2 saturation between 88-92% Repeat ABG in the morning to look at the PCO2 level. If he pH is greater than 7.4 then acetazolamide can be considered Case was discussed with Dr. Velasquez Please note the above document was generated using voice recognition software. It may contain grammatical, syntax or spelling errors.Any formal questions or concerns about the content, text or information contained within the body of this dictation should be directly addressed to the provider for clarification. Admission and Anticipated Discharge Date Admission Date: July 05, 2022 Subjective Patient seen and examined at bedside. No acute distress, no adverse events evon rnight. Overall he said he is feeling better compared to when he came to the hospital Still having some difficulty bringing up phlegm but it is better than before Denies any hemoptysis Saturating 91% on 1 and half liters at the time of examination Denies any chest pain Fair appetite Review of Systems Review of Systems: All systems reviewed & are unremarkable except as noted in Subjective Physical Exam Physical Exam: Constitutional: No acute distress HEENT: EOMI, PERRLA Respiratory system: Decreased air entry bilaterally, no rhonchi, mild crackles bilateral lower lobes, minimal expiratory wheeze CVS: S1-S2 positive, no murmurs or gallops Abdomen: Soft, nontender, nondistended, positive bowel sounds x4, obese Extremities: +2 pulses bilaterally radialis/ dorsalis pedis, no cyanosis, no edema Neuro: Awake alert oriented x3 Psych: Normal mood and affect G/U: No Payan Skin: no rashes, warm and dry Lymphatic: no cervical or axillary lymphadenopathy Results & Data Results & Data ([facility]) Vital Signs (Past 12 Hours) Vital Signs Temp Pulse Pulse Resp BP BP BP 07/08/22 10:26 87 07/08/22 08:00 07/08/22 10:13 126 H 193/119 H 07/08/22 07:16 36.5 C 111 H 22 176/103 H 193/119 H 07/08/22 07:02 90 20 07/08/22 03:29 36.5 C 100 H 18 169/102 H 07/08/22 02:53 98 H 27 H 07/08/22 00:47 98 H 07/08/22 00:40 07/08/22 01:06 36.5 C 96 H 18 170/91 H 07/08/22 00:19 83 Pulse Ox O2 Del Method O2 Flow Rate FiO2 07/08/22 10:26 07/08/22 08:00 Nasal Cannula 3 07/08/22 10:13 07/08/22 07:16 97 Nasal Cannula 2 07/08/22 07:02 97 Nasal Cannula 2 07/08/22 03:29 92 CPAP 07/08/22 02:53 94 25 07/08/22 00:47 07/08/22 00:40 Nasal Cannula 3 07/08/22 01:06 98 Nasal Cannula 3 07/08/22 00:19 Laboratory Results 07/07/22 06:12 07/08/22 05:55 PG Care Time/CCT Total # of Minutes Spent Total Time Spent with Patient: Total time spent is greater than 50% in coordination of care (as documented) at patient's floor/unit and/or counseling patient: Coding Level of Care Code 60829 SUB INP/OBS CARE 2/35MIN Diagnoses Chronic obstructive pulmonary disease J44.9 Acute exacerbation of chronic obstructive pulmonary disease (COPD) J44.1 Ex-smoker Z87.891 Acute on chronic respiratory failure with hypoxia and hypercapnia J96.21; J96.22 Multiple pulmonary nodules R91.8
--- NOTE | 2022-07-08 12:06 | Cardiology Consultation ---
Date of Consultation July 08, 2022 Assessment & Plan (1) PSVT (paroxysmal supraventricular tachycardia): (2) Acute on chronic respiratory failure with hypoxia and hypercapnia: (3) COPD exacerbation: Plan 67-year-old patient admitted with acute respiratory failure secondary to COPD exacerbation. Frequent salvos of paroxysmal supraventricular tachycardia recorded on telemetry. Recommend treatment with calcium channel amor therapy. Will initiate Cardizem 60 mg 3 times daily. Continue low-dose metoprolol, 12.5 mg twice daily for the time being. Assess TSH. Repeat electrolytes in a.m. Continue telemetry monitoring. History of Present Illness Reason for Consultation: SVT Requesting Physician: Dr. Velasquez Attending Physician: Margarita Velasquez MD History of Present Illness 67-year-old patient admitted 07/05/2022 with acute on chronic respiratory failure with hypoxia and hypercapnia. History of severe oxygen dependent COPD. Clinically improved with antibiotic therapy, inhalers, and corticosteroids. Telemetry revealing brief salvos of paroxysmal supraventricular tachycardia with heart rates in the 150s, up to 170s. Patient unaware of elevated heart rate. He is hypertensive as well. Low-dose beta-amor added without significant effect. Denies chest pain or heaviness. No lightheadedness, dizziness, syncope, or near syncope. Allergies Allergy/AdvReac Type Severity Reaction Status Date / Time bupropion Allergy Intermediate RASH Verified 05/02/22 12:08 pravastatin Allergy Mild HIVES Verified 05/02/22 12:08 Home Medications Medication Instructions Recorded Confirmed Type lorazepam 1 mg tablet 1 mg PO Q8 01/30/18 07/05/22 History Oxygen Home #1 ea 07/06/20 07/05/22 Rx lancets 30 gauge (OneTouch Delica 04/24/21 07/05/22 History Lancets) Miscellaneous Pulmonary Supply #1 ea 08/30/21 07/05/22 Rx prednisone 20 mg tablet 40 mg PO QAM PRN x5 days 06/05/22 07/05/22 History omeprazole 40 mg capsule,delayed 40 mg PO DAILYBB 07/05/22 07/05/22 History release venlafaxine 75 mg tablet 150 mg PO QAM 07/05/22 07/05/22 History Patient History Medical History Abdominal pain Acute exacerbation of chronic obstructive pulmonary disease (COPD) Acute on chronic respiratory failure with hypoxia and hypercapnia Anxiety Anxiety Blood CO2 increased Chronic dyspnea Chronic hypercapnic respiratory failure Chronic obstructive pulmonary disease WEARS O2 AT 3L CONTINUOUS AT HS 2L O2 DURING DAY PRN Chronic obstructive pulmonary disease Chronic respiratory failure COPD exacerbation Dependence on supplemental oxygen Depression DM (diabetes mellitus), type 2 with neurological complications Dyslipidemia End stage COPD Fatty liver Fatty liver GERD (gastroesophageal reflux disease) GERD without esophagitis History of nicotine dependence Hyperlipidemia Hyperlipidemia Hypoxemia Irritable bowel disease Nocturnal hypoxemia Osteoarthritis Post traumatic stress disorder Pulmonary air trapping Pulmonary emphysema Shortness of breath Surgical History History of cardiac cath NO STENTS History of colonoscopy History of discectomy LUMBAR DISCECTOMY History of herniorrhaphy INGUINAL RT/LEFT History of tonsillectomy History of tooth extraction Family History Unknown Family history of diabetes mellitus Family hx colonic polyps Social History Smoking Status: Former smoker Second Hand Exposure: No; Hx Alcohol Use: No Hx Substance Use: Yes Substance Use Type Other:: marijuana teenager through 30 years of age Preferred Language: Bulgarian Communication Ability: Effective Visual Impairment: No Limitations Decorative Engraver Required: No Beliefs That Will Affect Care: None Current Living Situation: Spouse Feels Safe at Home: Yes Assistive Devices: Oxygen - Continuous and Scooter/Electric Scooter Review of Systems Review of Systems: All systems reviewed & are unremarkable except as noted in Subjective Physical Exam Constitutional: + ill appearing; no acute distress Respiratory: no labored breathing and no retractions Auscultation: + diminished lung sounds (Bilateral, poor air movement) Cardiovascular: Rate/Rhythm: regular rate and regular rhythm Heart Sounds: normal S1 and normal S2; no murmur Vessels: radial pulses present; no JVD and no carotid bruit Extremities: no edema Gastrointestinal (Abdomen): Inspection/Auscultation: normal bowel sounds; abdomen not distended Percussion/Palpation: abdomen soft; abdomen nontender, no guarding and abdomen not rigid Neurologic: CN's II-XI intact bilaterally and moves all extremities; no focal motor deficits Psychiatric: A+Ox3, euthymic affect Results & Data ([facility]) Vital Signs (Past 12 Hours) Vital Signs Temp Pulse Pulse Resp BP BP BP 07/08/22 11:48 36.7 C 91 H 16 181/98 H 07/08/22 10:26 87 07/08/22 08:00 07/08/22 10:13 126 H 193/119 H 07/08/22 07:16 36.5 C 111 H 22 176/103 H 193/119 H 07/08/22 07:02 90 20 07/08/22 03:29 36.5 C 100 H 18 169/102 H 07/08/22 02:53 98 H 27 H 07/08/22 00:47 98 H 07/08/22 00:40 07/08/22 01:06 36.5 C 96 H 18 170/91 H 07/08/22 00:19 83 Pulse Ox O2 Del Method O2 Flow Rate FiO2 07/08/22 11:48 94 Nasal Cannula 3 07/08/22 10:26 07/08/22 08:00 Nasal Cannula 3 07/08/22 10:13 07/08/22 07:16 97 Nasal Cannula 2 07/08/22 07:02 97 Nasal Cannula 2 07/08/22 03:29 92 CPAP 07/08/22 02:53 94 25 07/08/22 00:47 07/08/22 00:40 Nasal Cannula 3 07/08/22 01:06 98 Nasal Cannula 3 07/08/22 00:19
--- NOTE | 2022-07-08 12:54 | Hospitalist Progress Note ---
Date of Service July 08, 2022 Assessment & Plan (1) Acute and chronic respiratory failure: (2) COPD exacerbation: (3) Respiratory acidosis: (4) Dependence on supplemental oxygen: (5) Anxiety: (6) Dyslipidemia: (7) GERD without esophagitis: Plan 67-year-old male chronic respiratory failure secondary to COPD exacerbation. Treat with IV steroids, nebs, Mucinex, IV antibiotics pending blood culture results. Chronic respiratory failure: COPD exacerbation: Hypoxia with home O2 dependence. 4 LNC supplemental O2 at home Takes fluticasone; continue Chest x-ray: Emphysematous changes IV Solu-Medrol every 6 hours Nebs 4 times daily and every 2 as needed Sputum culture pending Flutter valve 4 times daily ISP every while awake Lactate negative Procalcitonin negative Ceftriaxone IV; blood cultures pending; adjust antibiotics as necessary based on results Will add doxycycline on top of ceftriaxone to cover atypicals Appreciate pulmonary input and recommendation ABG-pH 7.26, PCO2 105 and's O2 more than 100, bicarb 37 Administered BiPAP and the patient has been feeling much better this afternoon Clinically much better today Will change nebulized solution to every 4 hourly as needed Clinically much better with less of respiratory symptoms SVT Likely secondary to COPD and hypoxia also being complicated by use of bronchodilators Will make nebulized solutions as needed and continue with inhalers Short lasting Blood pressure was elevated at more than 170 systolic Started on a small dose of beta-amor with 12.5 mg Lopressor twice daily Heart rate seems to be around 100 and in sinus rhythm Has been having salvos of SVT with palpitation and was transferred to PCU last night Appreciate cardiology input and recommendation of using Cardizem Anxiety: Takes venlafaxine 150 mg every morning and Ativan 1 mg p.o. every 8; continue Has been taking benzodiazepines 1 mg 3 times daily for a long time Will not touch the dose rather the outpatient provider can help titrating down Has memory impairment and the patient is strongly advised to make an appointment with outpatient neurologist Required an additional dose of Xanax 0.5 mg orally last evening GERD without esophagitis: Takes omeprazole; continue Disposition: PCP: Dr. Martinez CODE STATUS: Full code VTE prophylaxis: Lovenox SQ Admission and Anticipated Discharge Date Admission Date: July 05, 2022 Subjective 07/06/2022 The patient was seen and examined in ER in presence of the He has been feeling much better since admission Breathing is better and there is no wheezing No fever and no chills 07/07/2022 The patient was examined in the in medical telemetry unit He was noted to have a few runs of SVT for about a few minutes Reverted to sinus rhythm and did not have any symptoms during the SVT This morning he has been feeling much better and has been communicating normally Denies any wheezing or increasing shortness of breath 07/08/2022 The patient was seen and examined in telemetry unit He was transferred to telemetry unit with salvos of SVT while on the floor Feels palpitation but denies any pain and no shortness of breath No fever and or chills Review of Systems Review of Systems: All systems reviewed and are unremarkable except as noted below Respiratory: Minimal shortness of breath at rest Physical Exam Physical Exam: Lying in bed comfortably Constitutional: well developed, well nourished, + ill appearing and + obese Eyes: PERRL, conjunctivae normal, anicteric sclerae ENMT: external ear and nose normal, oropharynx normal Neck: trachea midline, no thyromegaly Respiratory: + respiratory distress (Minimal distress at rest) Auscultati on: + diminished lung sounds and + crackles (Bibasilar crackles); no wheezes Cardiovascular: Rate/Rhythm: regular rate, regular rhythm and + tachycardic Heart Sounds: normal S1, normal S2 and + murmur Extremities: no edema Gastrointestinal (Abdomen): Inspection/Auscultation: normal bowel sounds; abdomen not distended Percussion/Palpation: abdomen soft; abdomen nontender Musculoskeletal: No acute arthritis involving any joint Neurologic: Alert, awake and oriented x3 Psychiatric: A+Ox3, euthymic affect Lymphatic: no cervical or axillary lymphadenopathy Results & Data Results & Data ([facility] [place]) Vital Signs (Past 12 Hours) Vital Signs Temp Pulse Pulse Resp BP BP BP 07/08/22 11:48 36.7 C 91 H 16 181/98 H 07/08/22 10:26 87 07/08/22 08:00 07/08/22 10:13 126 H 193/119 H 07/08/22 07:16 36.5 C 111 H 22 176/103 H 193/119 H 07/08/22 07:02 90 20 07/08/22 03:29 36.5 C 100 H 18 169/102 H 07/08/22 02:53 98 H 27 H 07/08/22 01:06 36.5 C 96 H 18 170/91 H Pulse Ox O2 Del Method O2 Flow Rate FiO2 07/08/22 11:48 94 Nasal Cannula 3 07/08/22 10:26 07/08/22 08:00 Nasal Cannula 3 07/08/22 10:13 07/08/22 07:16 97 Nasal Cannula 2 07/08/22 07:02 97 Nasal Cannula 2 07/08/22 03:29 92 CPAP 07/08/22 02:53 94 25 07/08/22 01:06 98 Nasal Cannula 3 Laboratory Results BMP 07/08/22 05:55 Sodium 140 Potassium 4.1 Chloride 93 L Carbon Dioxide 43 H* BUN 28 H Creatinine 1.15 Glucose 130 H Calcium 10.8 H Medications Administered Current Inpatient Medications Aspirin (Aspirin 81 Mg Ectab) 81 mg PO DAILY [facility] Stop: 08/05/22 08:59 Last Admin: 07/08/22 08:57 Dose: 81 mg Budesonide (Budesonide 0.5 Mg/2 Ml Vial (Pulmicort)) 0.5 mg NEB BIDR [facility] Stop: 08/05/22 18:59 Last Admin: 07/08/22 07:01 Dose: 0.5 mg Diltiazem HCl (Diltiazem Hcl 60 Mg Tab) 60 mg PO TID [facility] Stop: 08/07/22 13:59 Doxycycline Hyclate (Doxycycline Hyclate 100 Mg Cap) 100 mg PO BID [facility] Stop: 07/13/22 20:59 Last Admin: 07/08/22 08:56 Dose: 100 mg Enoxaparin Sodium (Enoxaparin Inj 40 Mg/0.4 Ml Syr) 40 mg SQ DAILY [facility] Stop: 08/06/22 08:59 Last Admin: 07/08/22 08:57 Dose: 40 mg Formoterol Fumarate (Formoterol 20 Mcg/2 Ml Vial) 20 mcg NEB BIDR [facility] Stop: 08/05/22 18:59 Last Admin: 07/08/22 07:01 Dose: 20 mcg Guaifenesin (Guaifenesin 600 Mg Tabcr) 1,200 mg PO Q12 [facility] Stop: 08/04/22 20:59 Last Admin: 07/08/22 08:57 Dose: 1,200 mg Ceftriaxone Sodium 2,000 mg/ (Dextrose) 70 mls @ 100 mls/hr IV Q24H [facility]; Protocol Stop: 07/13/22 17:59 Last Infusion: 07/07/22 17:59 Dose: Infused Methylprednisolone 40 mg/ (Syringe) 0.64 mls @ 1.5 mls/min IV Q12H [facility] Stop: 08/06/22 08:59 Last Admin: 07/08/22 09:00 Dose: 1.5 mls/min Ipratropium [place] (Ipratropium [place] Neb Soln 0.02% 2.5 Ml Vial) 0.5 mg INH Q4H PRN PRN Reason: SOB/WHEEZING Stop: 08/07/22 01:02 Levalbuterol HCl (Levalbuterol 1.25mg/0.5ml Neb) 1.25 mg INH Q4H PRN PRN Reason: SOB/WHEEZING Stop: 08/07/22 01:02 Lorazepam (Lorazepam 1 Mg Tab) 1 mg PO Q8 [facility] Stop: 08/04/22 21:59 Last Admin: 07/08/22 05:42 Dose: 1 mg Meclizine HCl (Meclizine Hcl 25 Mg Tab) 25 mg PO TID PRN PRN Reason: Dizziness Stop: 08/04/22 19:56 Metoprolol Tartrate (Metoprolol Tartrate 25 Mg Tab) 12.5 mg PO BID [facility] Stop: 08/05/22 20:59 Last Admin: 07/08/22 08:58 Dose: 12.5 mg Metoprolol Tartrate (Metoprolol Tartrate 1 Mg/Ml Vial) 5 mg IV Q6 PRN PRN Reason: Tachycardia Stop: 08/07/22 01:02 Last Admin: 07/08/22 10:13 Dose: 5 mg Pantoprazole Sodium (Pantoprazole 40 Mg Tab) 40 mg PO DAILYBB [facility] Stop: 08/05/22 06:29 Last Admin: 07/08/22 05:41 Dose: 40 mg Sodium Chloride (Sodium Chlor 7% 4 Ml Neb) 4 ml NEB BIDR [facility] Stop: 08/06/22 18:59 Last Admin: 07/08/22 07:01 Dose: 4 ml Umeclidinium [place] (Umeclidinium [place] 62.5mcg/Blister 7 Puffs/Inhaler) 1 puffs INH DAILY [facility] Stop: 08/06/22 08:59 Last Admin: 07/08/22 09:00 Dose: Not Given Venlafaxine HCl (Venlafaxine Hcl 50 Mg Tab) [facility] [place] Stop: 08/05/22 08:59 Last Admin: 07/08/22 08:58 Dose: 150 mg
[2022-07-08] MEDS: dilTIAZem HCl 60 MG TAB PO SCH ×2 (13:44→19:43)
[2022-07-08] MEDS: cefTRIAXone SODIUM 2,000 MG in DEXTROSE 5% 50 ML IV SCH (17:00)
[2022-07-09] MEDS: LORazepam 1 MG TAB PO SCH ×4 (01:44→19:58)
[2022-07-09] MEDS: PANTOprazole 40 MG TAB PO SCH (05:46)
[2022-07-09] MEDS: BUDESONIDE 0.5 MG/2 ML VIAL (PULMICORT) NEB SCH ×2 (06:54→19:44)
[2022-07-09] MEDS: FORMOTEROL 20 MCG/2 ML VIAL NEB SCH ×2 (06:54→19:43)
[2022-07-09] MEDS: SODIUM CHLOR 7% 4 ML NEB NEB SCH ×2 (06:54→19:44)
[2022-07-09 07:31] LABS: Base Excess ABG 13.4 mEq/L (-9-1.8); HCO3 ABG 43 mmol/L (19-24); Oxygen Saturation ABG 99.9 % (90-95); PCO2 ABG 79 mmHg (35-46); PO2 ABG 190 mmHg (80-95); pH ABG 7.34 (7.35-7.45)
[2022-07-09 07:36] LABS: Basophils # (auto) 0.01 K/uL (0-0.2); Basophils % (auto) 0.1 %; Hematocrit (blood only) 37.1 % (42.0-52.0); Hemoglobin 11.7 g/dl (14.0-18.0); Immature Granulocytes # (auto) 0.09 K/uL (0.01-0.20); Immature Granulocytes % (auto) 1.2 %; Lymphocytes # (auto) 0.45 K/uL (1.2-3.4); Lymphocytes % (auto) 6.1 %; Mean Corpuscular Hemoglobin 29.5 pg (25.0-34.0); Mean Corpuscular Hgb Conc 31.5 g/dL (32.0-36.0); Mean Corpuscular Volume 93.5 fL (80.0-100.0); Mean Platelet Volume 10.6 fL (9.4-12.4); Monocytes # (auto) 0.54 K/uL (0.11-0.59); Monocytes % (auto) 7.4 %; Neutrophils # (auto) 6.25 K/uL (1.40-6.50); Neutrophils % (auto) 85.2 %; Platelet Count 268 K/uL (130-400); RDW Coefficient of Variation 11.9 % (11.5-14.5); RDW Standard Deviation 40.4 fL (36.4-46.3); Red Blood Count 3.97 M/uL (4.70-6.10); White Blood Count 7.34 K/ul (4.8-10.8)
[2022-07-09 07:40] LABS: Allen Test Pos (Pos)
--- NOTE | 2022-07-09 07:49 | Pulmonology Progress Note ---
Date of Service July 09, 2022 Assessment & Plan (1) Chronic obstructive pulmonary disease: (2) Acute exacerbation of chronic obstructive pulmonary disease (COPD): (3) Ex-smoker: (4) Acute on chronic respiratory failure with hypoxia and hypercapnia: (5) Multiple pulmonary nodules: Plan CT chest 07/06/2022 personally reviewed: Severe centrilobular and paraseptal emphysema appreciated bilaterally No clear consolidative process, multiple small pulmonary nodules appreciated bilaterally No mediastinal lymphadenopathy Chest x-ray 07/06/2022 personally reviewed: Portable hyperinflated film, right lower lobe haziness appreciated which has been chronic. Bilateral costophrenic and cardiophrenic angles are clean. ABG 07/05/2022: 7.26/105/176 on 5 L --> ABG 07/09/2022: 7.41/79/190 on 8 L -- Acute on chronic hypercapnic Hypoxic respiratory failure Secondary to acute COPD exacerbation COVID-19 PCR, influenza A/B, RSV negative Procalcitonin 0.10 BiPAP nightly and as needed shortness of breath Avoid over oxygenating the patient -- Very severe COPD On Trelegy at home Patient also has AVAPS machine at home but is not compliant with it I will change it to Brovana and budesonide nebulized while in the hospital as I am not sure patient has inspiratory capacity to get the benefit of Trelegy inhaler. PFT 01/01/2020 personally reviewed: FVC 1.83 L 41%, FEV1 0.64 L 18%, RV 276%, TLC 131%, RV/TLC 208%, DLCO 30% --Multiple pulmonary nodules appreciated bilaterally Up to 5 mm Repeat screening CAT scan in 1 year --Anxiety Has been on Ativan chronically -- Metabolic alkalosis Likely compensatory to chronic hypercapnic respiratory failure Plan: ABG from today shows improvement in the hypercapnia compared to the time of presentation Continue with Brovana and budesonide, hypertonic saline and Mucinex Complete the course of doxycycline for 5 days Continue with BiPAP nightly as needed shortness of breath Start tapering prednisone as of tomorrow 40 mg for 3 days followed by 20 mg for 3 Case was discussed with Dr. Velasquez Please note the above document was generated using voice recognition software. It may contain grammatical, syntax or spelling errors.Any formal questions or concerns about the content, text or information contained within the body of this dictation should be directly addressed to the provider for clarification. Admission and Anticipated Discharge Date Admission Date: July 05, 2022 Subjective Patient seen and examined at bedside. No acute distress, no adverse events overnight Unfortunately patient used BiPAP only for 3 hours. He had the belief that he does not have to use it all night. I explained to the patient and dad that he needs to use BiPAP whenever he is asleep as well as taking a nap He was saturating 97 % on 3 L nasal cannula. I went down to 2 L. Shortness of breath is improved. Denies any nausea vomiting No hemoptysis Review of Systems Review of Systems: All systems reviewed & are unremarkable except as noted in Subjective Physical Exam Physical Exam: Constitutional: No acute distress HEENT: EOMI, PERRLA Respiratory system: Decreased air entry bilaterally, no rhonchi, mild crackles bilateral lower lobes, no wheeze CVS: S1-S2 positive, no murmurs or gallops Abdomen: Soft, nontender, nondistended, positive bowel sounds x4, obese Extremities: +2 pulses bilaterally radialis/ dorsalis pedis, no cyanosis, no e krishna Neuro: Awake alert oriented x3 Psych: Normal mood and affect G/U: No Payan Skin: no rashes, warm and dry Lymphatic: no cervical or axillary lymphadenopathy Results & Data Results & Data ([facility]) Vital Signs (Past 12 Hours) Vital Signs Temp Pulse Pulse Resp BP Pulse Ox O2 Del Method 07/09/22 06:54 89 18 98 Nasal Cannula 07/09/22 04:47 36.6 C 89 18 161/68 H 95 Nasal Cannula 07/09/22 02:32 91 H 96 07/09/22 00:28 73 07/09/22 00:25 Nasal Cannula 07/08/22 23:15 36.5 C 70 18 171/82 H 3 L Room Air 07/08/22 22:24 80 19 92 07/08/22 20:12 36.6 C 92 H 16 147/91 H 98 Nasal Cannula O2 Flow Rate FiO2 07/09/22 06:54 3 07/09/22 04:47 4 07/09/22 02:32 07/09/22 00:28 07/09/22 00:25 3 07/08/22 23:15 3 02/05/23 22:24 25 07/08/22 20:12 4 Laboratory Results 07/09/22 07:12 PG Care Time/CCT Total # of Minutes Spent Total Time Spent with Patient: Total time spent is greater than 50% in coordination of care (as documented) at patient's floor/unit and/or counseling patient: Coding Level of Care Code 68027 SUB INP/OBS CARE 2/35MIN Diagnoses Chronic obstructive pulmonary disease J44.9 Acute exacerbation of chronic obstructive pulmonary disease (COPD) J44.1 Ex-smoker Z87.891 Acute on chronic respiratory failure with hypoxia and hypercapnia J96.21; J96.22 Multiple pulmonary nodules R91.8
[2022-07-09 08:21] LABS: Calcium 9.6 mg/dl (8.5-10.1); Creatinine Clr Calc Pharmacy 83.3 ml/min; Est GFR (African American) 89.9 ml/min; Est GFR (Non-African American) 77.5 ml/min; Magnesium 2.2 mg/dl (1.7-2.4); Potassium 4.2 mmol/L (3.5-5.1)
[2022-07-09] MEDS: methylPREDNISolone 40 MG in SYRINGE 0 ML IV SCH (08:47)
[2022-07-09] MEDS: ENOXAPARIN INJ 40 MG/0.4 ML SYR SQ SCH (08:47)
[2022-07-09] MEDS: METOPROLOL TARTRATE 25 MG TAB PO SCH ×2 (08:48→19:53)
[2022-07-09] MEDS: VENLAFAXINE HCL 50 MG TAB PO SCH (08:48)
[2022-07-09] MEDS: ASPIRIN 81 MG ECTAB PO SCH (08:48)
[2022-07-09] MEDS: UMECLIDINIUM BROMIDE 62.5MCG/BLISTER 7 PUFFS/INHALER INH SCH ×3 (08:49→09:23)
[2022-07-09] MEDS: DOXYCYCLINE HYCLATE 100 MG CAP PO SCH ×2 (08:49→19:52)
[2022-07-09] MEDS: dilTIAZem HCl 60 MG TAB PO SCH ×4 (08:49→23:58)
[2022-07-09] MEDS: guaiFENesin 600 MG TABCR PO SCH ×3 (08:49→19:53)
--- NOTE | 2022-07-09 11:48 | Cardiology Progress Note ---
Date of Service July 09, 2022 Assessment & Plan (1) PSVT (paroxysmal supraventricular tachycardia): (2) Acute on chronic respiratory failure with hypoxia and hypercapnia: (3) COPD exacerbation: Plan 67-year-old patient admitted with acute respiratory failure secondary to COPD ex acerbation. Responding well to oral diltiazem and low-dose beta-amor.. Recommend titration to 60 mg 4 times daily. Transition to long-acting Cardizem CD2 240 mg daily at discharge pending clinical response. Continue telemetry monitoring. Admission and Anticipated Discharge Date Admission Date: July 05, 2022 Subjective Patient seen and examined at bedside. Feeling better today. Telemetry with occasional episodes of PSVT, however, less frequent than yesterday. Tolerating diltiazem. Denies palpitations, lightheadedness, or dizziness. No chest discomfort or heaviness. Blood pressure remains elevated, however, mildly improved. Review of Systems Review of Systems: All systems reviewed & are unremarkable except as noted in Subjective Physical Exam Constitutional: + ill appearing; no acute distress Respiratory: no labored breathing and no retractions Auscultation: + diminished lung sounds (Bilateral, poor air movement) Cardiovascular: Rate/Rhythm: regular rate and regular rhythm Heart Sounds: normal S1 and normal S2; no murmur Vessels: radial pulses present; no JVD and no carotid bruit Extremities: no edema Gastrointestinal (Abdomen): Inspection/Auscultation: normal bowel sounds; abdomen not distended Percussion/Palpation: abdomen soft; abdomen nontender, no guarding and abdomen not rigid Neurologic: CN's II-XI intact bilaterally and moves all extremities; no focal motor deficits Psychiatric: A+Ox3, euthymic affect Results & Data ([facility]) Vital Signs (Past 12 Hours) Vital Signs Temp Pulse Pulse Resp BP Pulse Ox O2 Del Method 07/09/22 08:00 Nasal Cannula 07/09/22 08:15 36.7 C 88 20 168/96 H 98 Nasal Cannula 07/09/22 06:54 89 18 98 Nasal Cannula 07/09/22 04:47 36.6 C 89 18 161/68 H 95 Nasal Cannula 07/09/22 02:32 91 H 96 07/09/22 00:28 73 07/09/22 00:25 Nasal Cannula O2 Flow Rate 07/09/22 08:00 3 07/09/22 08:15 3.0 07/09/22 06:54 3 07/09/22 04:47 4 07/09/22 02:32 07/09/22 00:28 07/09/22 00:25 3
--- NOTE | 2022-07-09 12:26 | Electrocardiogram Report ---
Test Reason : Blood Pressure : / mmHG Vent. Rate : 101 BPM Atrial Rate : 101 BPM P-R Int : 122 ms QRS Dur : 104 ms QT Int : 328 ms P-R-T Axes : 080 081 073 degrees QTc Int : 425 ms Poor data quality, interpretation may be adversely affected Sinus tachycardia Incomplete right bundle branch block Otherwise normal ECG When compared with ECG of 07-JUL-2022 23:36, No significant change Confirmed by Aric Bartholomew ([id number]) on 07/09/2022 12:26:17 PM Referred By: REFERRED SELF Confirmed By:Aric Bartholomew
--- NOTE | 2022-07-09 15:37 | Hospitalist Progress Note ---
Date of Service July 09, 2022 Assessment & Plan (1) Acute and chronic respiratory failure: (2) COPD exacerbation: (3) Respiratory acidosis: (4) Dependence on supplemental oxygen: (5) Anxiety: (6) Dyslipidemia: (7) GERD without esophagitis: Plan 67-year-old male chronic respiratory failure secondary to COPD exacerbation. Treat with IV steroids, nebs, Mucinex, IV antibiotics pending blood culture results. Chronic respiratory failure: COPD exacerbation: Hypoxia with home O2 dependence. 4 LNC supplemental O2 at home Takes fluticasone; continue Chest x-ray: Emphysematous changes IV Solu-Medrol every 6 hours Nebs 4 times daily and every 2 as needed Sputum culture pending Flutter valve 4 times daily ISP every while awake Lactate negative Procalcitonin negative Ceftriaxone IV; blood cultures pending; adjust antibiotics as necessary based on results Will add doxycycline on top of ceftriaxone to cover atypicals Appreciate pulmonary input and recommendation ABG-pH 7.26, PCO2 105 and's O2 more than 100, bicarb 37 Administered BiPAP and the patient has been feeling much better this afternoon Clinically much better today Will change nebulized solution to every 4 hourly as needed Much better but getting very short of breath with minimal exertion Has been requiring 3 L at rest to maintain saturation SVT Likely secondary to COPD and hypoxia also being complicated by use of bronchodilators Will make nebulized solutions as needed and continue with inhalers Short lasting Blood pressure was elevated at more than 170 systolic Started on a small dose of beta-amor with 12.5 mg Lopressor twice daily Heart rate seems to be around 100 and in sinus rhythm Has been having salvos of SVT with palpitation and was transferred to PCU last night Appreciate cardiology input and recommendation of using Cardizem Cardizem doses have been increased due to increasing heart rate Anxiety: Takes venlafaxine 150 mg every morning and Ativan 1 mg p.o. every 8; continue Has been taking benzodiazepines 1 mg 3 times daily for a long time Will not touch the dose rather the outpatient provider can help titrating down Has memory impairment and the patient is strongly advised to make an appointment with outpatient neurologist Required an additional dose of Xanax 0.5 mg orally last evening GERD without esophagitis: Takes omeprazole; continue Disposition: PCP: Dr. Martinez CODE STATUS: Full code VTE prophylaxis: Lovenox SQ We will discuss with the for possible palliative care involvement Admission and Anticipated Discharge Date Admission Date: July 05, 2022 Subjective 07/06/2022 The patient was seen and examined in ER in presence of the He has been feeling much better since admission Breathing is better and there is no wheezing No fever and no chills 07/07/2022 The patient was examined in the in medical telemetry unit He was noted to have a few runs of SVT for about a few minutes Reverted to sinus rhythm and did not have any symptoms during the SVT This morning he has been feeling much better and has been communicating normally Denies any wheezing or increasing shortness of breath 07/08/2022 The patient was seen and examined in telemetry unit He was transferred to telemetry unit with salvos of SVT while on the floor Feels palpitation but denies any pain and no shortness of breath No fever and or chills 07/09/2022 The patient was seen and examined in telemetry unit He has been having occasional SVT with heart rate more than 110s Breathing stable at rest Gets very shortness of breath with minimal exertion Review of Systems Review of Systems: All systems reviewed and are unremarkable except as noted below Respiratory: Minimal shortness of breath at rest Physical Exam Physical Exam: Sitting at the edge of the bed with mild to moderate shortness of Constitutional: well developed, well nourished, + ill appearing and + obese Eyes: PERRL, conjunctivae normal, anicteric sclerae ENMT: external ear and nose normal, oropharynx normal Neck: trachea midline, no thyromegaly Respiratory: + respiratory distress (Minimal distress at rest) Auscultation: + diminished lung sounds and + crackles (Bibasilar crackles); no wheezes Cardiovascular: Rate/Rhythm: regular rate, regular rhythm and + tachycardic Heart Sounds: normal S1, normal S2 and + murmur Extremities: no edema Gastrointestinal (Abdomen): Inspection/Auscultation: normal bowel sounds; abdomen not distended Percussion/Palpation: abdomen soft; abdomen nontender Musculoskeletal: No acute arthritis involving any joint Neurologic: Alert, awake and oriented x3. Generally weak Psychiatric: A+Ox3, euthymic affect Lymphatic: no cervical or axillary lymphadenopathy Results & Data Results & Data ([facility]) Vital Signs (Past 12 Hours) Vital Signs Temp Pulse Resp BP Pulse Ox O2 Del Method O2 Flow Rate 07/09/22 12:21 36.7 C 95 H 19 164/98 H 97 Nasal Cannula 3.0 07/09/22 08:00 Nasal Cannula 3 07/09/22 08:15 36.7 C 88 20 168/96 H 98 Nasal Cannula 3.0 07/09/22 06:54 89 18 98 Nasal Cannula 3 07/09/22 04:47 36.6 C 89 18 161/68 H 95 Nasal Cannula 4 Laboratory Results Short CBC 07/09/22 Range/Units 07:12 WBC 7.34 (4.8-10.8) K/ul Hgb 11.7 L (14.0-18.0) g/dl Hct 37.1 L (42.0-52.0) % Plt Count 268 (130-400) K/uL BMP 07/09/22 07:12 Sodium 141 Potassium 4.2 Chloride 95 L Carbon Dioxide 41 H* BUN 24 H Creatinine 1.00 Glucose 128 H Calcium 9.6 Medications Administered Current Inpatient Medications Aspirin (Aspirin 81 Mg Ectab) 81 mg PO DAILY [facility] Stop: 08/05/22 08:59 Last Admin: 07/09/22 08:48 Dose: 81 mg Budesonide (Budesonide 0.5 Mg/2 Ml Vial (Pulmicort)) 0.5 mg NEB BIDR [facility] Stop: 08/05/22 18:59 Last Admin: 07/09/22 06:54 Dose: 0.5 mg Diltiazem HCl (Diltiazem Hcl 60 Mg Tab) 60 mg PO Q6 [facility] Stop: 08/08/22 11:59 Last Admin: 07/09/22 12:59 Dose: 60 mg Doxycycline Hyclate (Doxycycline Hyclate 100 Mg Cap) 100 mg PO BID [facility] Stop: 07/13/22 20:59 Last Admin: 07/09/22 08:49 Dose: 100 mg Enoxaparin Sodium (Enoxaparin Inj 40 Mg/0.4 Ml Syr) 40 mg SQ DAILY [facility] Stop: 08/06/22 08:59 Last Admin: 07/09/22 08:47 Dose: 40 mg Formoterol Fumarate (Formoterol 20 Mcg/2 Ml Vial) 20 mcg NEB BIDR [facility] Stop: 08/05/22 18:59 Last Admin: 07/09/22 06:54 Dose: 20 mcg Guaifenesin (Guaifenesin 600 Mg Tabcr) 1,200 mg PO Q12 [facility] Stop: 08/04/22 20:59 Last Admin: 07/09/22 08:51 Dose: Not Given Ceftriaxone Sodium 2,000 mg/ (Dextrose) 70 mls @ 100 mls/hr IV Q24H [facility]; Protocol Stop: 07/13/22 17:59 Last Infusion: 07/08/22 17:45 Dose: Infused Methylprednisolone 40 mg/ (Syringe) 0.64 mls @ 1.5 mls/min IV DAILY [facility] Stop: 08/09/22 08:59 Ipratropium [place] (Ipratropium [place] Neb Soln 0.02% 2.5 Ml Vial) 0.5 mg INH Q4H PRN PRN Reason: SOB/WHEEZING Stop: 08/07/22 01:02 Levalbuterol HCl (Levalbuterol 1.25mg/0.5ml Neb) 1.25 mg INH Q4H PRN PRN Reason: SOB/WHEEZING Stop: 08/07/22 01:02 Lorazepam (Lorazepam 1 Mg Tab) 1 mg PO Q8 [facility] Stop: 08/04/22 21:59 Last Admin: 07/09/22 13:01 Dose: 1 mg Meclizine HCl (Meclizine Hcl 25 Mg Tab) 25 mg PO TID PRN PRN Reason: Dizziness Stop: 08/04/22 19:56 Metoprolol Tartrate (Metoprolol Tartrate 25 Mg Tab) 12.5 mg PO BID [facility] Stop: 08/05/22 20:59 Last Admin: 07/09/22 08:48 Dose: 12.5 mg Metoprolol Tartrate (Metoprolol Tartrate 1 Mg/Ml Vial) 5 mg IV Q6 PRN PRN Reason: Tachycardia Stop: 08/07/22 01:02 Last Admin: 07/08/22 10:13 Dose: 5 mg Pantoprazole Sodium (Pantoprazole 40 Mg Tab) 40 mg PO DAILYBB [facility] Stop: 08/05/22 06:29 Last Admin: 07/09/22 05:46 Dose: 40 mg Sodium Chloride (Sodium Chlor 7% 4 Ml Neb) 4 ml NEB BIDR [facility] Stop: 08/06/22 18:59 Last Admin: 07/09/22 06:54 Dose: 4 ml Umeclidinium [place] (Umeclidinium [place] 62.5mcg/Blister 7 Puffs/Inhaler) 1 puffs INH DAILY [facility] Stop: 08/06/22 08:59 Last Admin: 07/09/22 09:23 Dose: 1 puffs Venlafaxine HCl (Venlafaxine Hcl 50 Mg Tab) 150 mg PO QAM [facility] Stop: 08/05/22 08:59 Last Admin: 07/09/22 08:48 Dose: 150 mg
[2022-07-09] MEDS: cefTRIAXone SODIUM 2,000 MG in DEXTROSE 5% 50 ML IV SCH (17:17)
[2022-07-10] MEDS: PANTOprazole 40 MG TAB PO SCH (05:13)
[2022-07-10] MEDS: dilTIAZem HCl 60 MG TAB PO SCH ×4 (05:13→23:53)
[2022-07-10] MEDS: LORazepam 1 MG TAB PO SCH ×3 (05:14→21:33)
[2022-07-10 07:00] LABS: Basophils # (auto) 0.01 K/uL (0-0.2); Basophils % (auto) 0.1 %; Hematocrit (blood only) 38.2 % (42.0-52.0); Hemoglobin 12.1 g/dl (14.0-18.0); Immature Granulocytes # (auto) 0.17 K/uL (0.01-0.20); Immature Granulocytes % (auto) 1.9 %; Lymphocytes # (auto) 0.75 K/uL (1.2-3.4); Lymphocytes % (auto) 8.5 %; Mean Corpuscular Hemoglobin 29.4 pg (25.0-34.0); Mean Corpuscular Hgb Conc 31.7 g/dL (32.0-36.0); Mean Corpuscular Volume 92.7 fL (80.0-100.0); Mean Platelet Volume 10.5 fL (9.4-12.4); Monocytes # (auto) 1.01 K/uL (0.11-0.59); Monocytes % (auto) 11.4 %; Neutrophils # (auto) 6.93 K/uL (1.40-6.50); Neutrophils % (auto) 78.1 %; Platelet Count 258 K/uL (130-400); RDW Coefficient of Variation 11.7 % (11.5-14.5); RDW Standard Deviation 39.7 fL (36.4-46.3); Red Blood Count 4.12 M/uL (4.70-6.10); White Blood Count 8.87 K/ul (4.8-10.8)
[2022-07-10] MEDS: SODIUM CHLOR 7% 4 ML NEB NEB SCH ×2 (07:05→19:11)
[2022-07-10] MEDS: BUDESONIDE 0.5 MG/2 ML VIAL (PULMICORT) NEB SCH ×2 (07:26→19:12)
[2022-07-10] MEDS: FORMOTEROL 20 MCG/2 ML VIAL NEB SCH ×2 (07:26→19:11)
[2022-07-10] MEDS: guaiFENesin 600 MG TABCR PO SCH ×2 (07:55→21:31)
[2022-07-10] MEDS: VENLAFAXINE HCL 50 MG TAB PO SCH (07:56)
[2022-07-10] MEDS: METOPROLOL TARTRATE 25 MG TAB PO SCH ×2 (07:57→21:31)
[2022-07-10] MEDS: ASPIRIN 81 MG ECTAB PO SCH (07:57)
[2022-07-10] MEDS: DOXYCYCLINE HYCLATE 100 MG CAP PO SCH ×2 (07:58→21:31)
[2022-07-10] MEDS: ENOXAPARIN INJ 40 MG/0.4 ML SYR SQ SCH (07:59)
[2022-07-10] MEDS: methylPREDNISolone 40 MG in SYRINGE 0 ML IV SCH (08:00)
[2022-07-10] MEDS: UMECLIDINIUM BROMIDE 62.5MCG/BLISTER 7 PUFFS/INHALER INH SCH (08:01)
[2022-07-10 08:04] LABS: Calcium 9.9 mg/dl (8.5-10.1); Creatinine Clr Calc Pharmacy 72.4 ml/min; Est GFR (African American) 75.1 ml/min; Est GFR (Non-African American) 64.8 ml/min; Potassium 4.3 mmol/L (3.5-5.1)
--- NOTE | 2022-07-10 08:04 | Electrocardiogram Report ---
Test Reason : Blood Pressure : / mmHG Vent. Rate : 070 BPM Atrial Rate : 070 BPM P-R Int : 122 ms QRS Dur : 104 ms QT Int : 404 ms P-R-T Axes : 008 071 066 degrees QTc Int : 436 ms Normal sinus rhythm Low voltage QRS Borderline ECG When compared with ECG of 09-JUL-2022 10:56, HR has decreased by 31 bpm Confirmed by Aric Bartholomew ([id number]) on 07/10/2022 8:03:56 AM Referred By: REFERRED SELF Confirmed By:Aric Bartholomew
--- NOTE | 2022-07-10 10:31 | Pulmonology Progress Note ---
Date of Service July 10, 2022 Assessment & Plan (1) Chronic obstructive pulmonary disease: (2) Acute exacerbation of chronic obstructive pulmonary disease (COPD): (3) Ex-smoker: (4) Acute on chronic respiratory failure with hypoxia and hypercapnia: (5) Multiple pulmonary nodules: Plan CT chest 07/06/2022 personally reviewed: Severe centrilobular and paraseptal emphysema appreciated bilaterally No clear consolidative process, multiple small pulmonary nodules appreciated bilaterally No mediastinal lymphadenopathy Chest x-ray 07/06/2022 personally reviewed: Portable hyperinflated film, right lower lobe haziness appreciated which has been chronic. Bilateral costophrenic and cardiophrenic angles are clean. ABG 07/05/2022: 7.26/105/176 on 5 L --> ABG 07/09/2022: 7.34/79/190 on 8 L -- Acute on chronic hypercapnic Hypoxic respiratory failure Secondary to acute COPD exacerbation COVID-19 PCR, influenza A/B, RSV negative Procalcitonin 0.10 BiPAP nightly and as needed shortness of breath Avoid over oxygenating the patient -- Very severe COPD On Trelegy at home Patient also has AVAPS machine at home but is not compliant with it I will change it to Brovana and budesonide nebulized while in the hospital as I am not sure patient has inspiratory capacity to get the benefit of Trelegy inhaler. PFT 01/01/2020 personally reviewed: FVC 1.83 L 41%, FEV1 0.64 L 18%, RV 276%, TLC 131%, RV/TLC 208%, DLCO 30% --Multiple pulmonary nodules appreciated bilaterally Up to 5 mm Repeat screening CAT scan in 1 year --Anxiety Has been on Ativan chronically -- Metabolic alkalosis Likely compensatory to chronic hypercapnic respiratory failure Plan: Continue with Brovana and budesonide, hypertonic saline and Mucinex Complete the course of doxycycline for 5 days Continue with BiPAP nightly as needed shortness of breath Start tapering prednisone as of tomorrow 40 mg for 3 days followed by 20 mg for 3 Case was discussed with Dr. Velasquez Please note the above document was generated using voice recognition software. It may contain grammatical, syntax or spelling errors.Any formal questions or concerns about the content, text or information contained within the body of this dictation should be directly addressed to the provider for clarification. Admission and Anticipated Discharge Date Admission Date: July 05, 2022 Subjective Patient seen and examined at bedside. No acute distress, no adverse events overnight Patient used BiPAP machine all night. Overall he says his breathing is better. Shortness of breath is improved Is coughing up clear phlegm. Denies any hemoptysis Fair appetite. No nausea vomiting Review of Systems Review of Systems: All systems reviewed & are unremarkable except as noted in Subjective Physical Exam Physical Exam: Constitutional: No acute distress HEENT: EOMI, PERRLA Respiratory system: Decreased air entry bilaterally, no rhonchi, mild crackles bilateral lower lobes, mild expiratory wheeze bilaterally CVS: S1-S2 positive, no murmurs or gallops Abdomen: Soft, nontender, nondistended, positive bowel sounds x4, obese Extremities: +2 pulses bilaterally radialis/ dorsalis pedis, no cyanosis, no edema Neuro: Awake alert oriented x3 Psych: Normal mood and affect G/U: No Payan Skin: no rashes, warm and dry Lymphatic: no cervical or axillary lymphadenopathy Results & Data Results & Data ([facility]) Vital Signs (Past 12 Hours) Vital Signs Temp Pulse Pulse Resp BP Pulse Ox O2 Del Method 07/10/22 10:12 Nasal Cannula 07/10/22 07:00 36.8 C 78 18 149/73 H 97 Nasal Cannula 07/10/22 07:06 82 18 98 Nasal Cannula 07/10/22 03:26 80 18 98 07/10/22 03:09 36.8 C 81 18 169/103 H 98 BiPAP 07/10/22 00:02 74 90 07/09/22 23:46 67 07/09/22 23:06 79 19 94 07/09/22 22:54 36.6 C 79 18 168/96 H 98 Nasal Cannula O2 Flow Rate FiO2 07/10/22 10:12 3 07/10/22 07:00 2 07/10/22 07:06 2 07/10/22 03:26 35 07/10/22 03:09 07/10/22 00:02 35 07/09/22 23:46 07/09/22 23:06 25 07/09/22 22:54 2 Laboratory Results 07/10/22 06:28 07/10/22 06:28 PG Care Time/CCT Total # of Minutes Spent Total Time Spent with Patient: Total time spent is greater than 50% in coordination of care (as documented) at patient's floor/unit and/or counseling patient: Coding Level of Care Code 97303 SUB INP/OBS CARE 2MIN Diagnoses Chronic obstructive pulmonary disease J44.9 Acute exacerbation of chronic obstructive pulmonary disease (COPD) J44.1 Ex-smoker Z87.891 Acute on chronic respiratory failure with hypoxia and hypercapnia J96.21; J96.22 Multiple pulmonary nodules R91.8
--- NOTE | 2022-07-10 11:17 | Cardiology Progress Note ---
Date of Service July 10, 2022 Assessment & Plan (1) PSVT (paroxysmal supraventricular tachycardia): (2) Acute on chronic respiratory failure with hypoxia and hypercapnia: (3) COPD exacerbation: Plan 67-year-old patient admitted with acute respiratory failure secondary to COPD ex acerbation. Responding well to oral diltiazem and low-dose beta-amor. Transition to long-acting Cardizem CD 240mg daily at discharge. Continue telemetry monitoring. Admission and Anticipated Discharge Date Admission Date: July 05, 2022 Subjective Patient seen examined the bedside. Respiratory status improved. Denies palpitations. Rare short salvos of PSVT on telemetry. Otherwise sinus rhythm in the 70-80's. Offers no new complaints. Still feeling somewhat weak and fatigued. Review of Systems Review of Systems: All systems reviewed & are unremarkable except as noted in Subjective Physical Exam Constitutional: + ill appearing; no acute distress Respiratory: no labored breathing and no retractions Auscultation: + diminished lung sounds (Bilateral.) Cardiovascular: Rate/Rhythm: regular rate and regular rhythm Heart Sounds: normal S1 and normal S2; no murmur Vessels: radial pulses present; no JVD and no carotid bruit Extremities: no edema Gastrointestinal (Abdomen): Inspection/Auscultation: normal bowel sounds; abdomen not distended Percussion/Palpation: abdomen soft; abdomen nontender, no guarding and abdomen not rigid Neurologic: CN's II-XI intact bilaterally and moves all extremities; no focal motor deficits Psychiatric: A+Ox3, euthymic affect Results & Data ([facility]) Vital Signs (Past 12 Hours) Vital Signs Temp Pulse Pulse Resp BP Pulse Ox O2 Del Method 07/10/22 10:40 Nasal Cannula 07/10/22 10:12 Nasal Cannula 07/10/22 07:00 36.8 C 78 18 149/73 H 97 Nasal Cannula 07/10/22 07:06 82 18 98 Nasal Cannula 07/10/22 03:26 80 18 98 07/10/22 03:09 36.8 C 81 18 169/103 H 98 BiPAP 07/10/22 00:02 74 90 07/09/22 23:46 67 O2 Flow Rate FiO2 07/10/22 10:40 2 07/10/22 10:12 3 07/10/22 07:00 2 07/10/22 07:06 2 07/10/22 03:26 35 07/10/22 03:09 07/10/22 00:02 35 07/09/22 23:46
--- NOTE | 2022-07-10 11:57 | Palliative Care Consultation ---
Date of Consultation July 10, 2022 Assessment & Plan (1) Dyspnea: with minimal exertion definite anxiety component some relief with lorazepam (2) Anxiety: with history of PTSD He is a [place] . He describes sensation of drowning when he is short of breath and when he wakes up with the bipap mask. He is currently on routine lorazepam and venlafaxine. (3) Palliative care encounter: I talked with Mr. Jacinto about how he is coping with his illness. He recognizes that each time he has a major exacerbation he ends up a little weaker than he was before. He has contemplated his dying time. He told me that he is not afraid to . However, he doesn't feel that he's ready to . He worries about his and how she would manage with bills and household responsibilities. The most important thing to him at this point is enjoying time with his family and grandchildren. He mentioned hospice care for support at home. We explored his goals and he tells me that he didn't really feel like there were any limitations to what he would be willing to go through for his care. We discussed code status. He recognizes the possibility that if he were intubated, his family would need to make the very difficulty decision to withdraw ventilator support. He does not feel that his would be able to do that and feels that his daughter, Usha, would be better able to make decisions for him if he were unable to do so. He expressed concern about feelings of suffocation at his dying time and I assured him that we could address his symptoms. On further consideration, at this time, he feels that he would not want intubation, to avoid his family making the decision to withdraw care. He would want CPR, defibrillation, pressors and other cardiac medications at this time. We discussed this as not being consistent with goals of care for hospice. He is not interested in hospice at this time. Code status was changed per our discussion. History of Present Illness Reason for Consultation: Goals of care Requesting Physician: Dr. Velasquez Attending Physician: Margarita Velasquez MD History of Present Illness 67 yo gentleman with chronic hypoxic, hypercapnic respiratory failure due to advanced COPD. He was hospitalized in May 2022 with COPD exacerbation and presented on 07/05 with shortness of breath and fever. He is being treated for pneumonia and COPD exacerbation. He tells me that he has some difficulty with ADLs and has dyspnea with ambulating even a few feet at home. His is his primary caregiver but he tells me that she had been ill and that her mother recently. His daughter also lives upstairs in their home and is very supportive with care. He is chronically on O2 at home and uses bipap as well. He has some trouble adjusting to the bipap as he has chronic anxiety and the feeling of the mask sometimes triggers his preexisting PTSD. He feels that he is getting used to it but does have panic attacks at times. Allergies Allergy/AdvReac Type Severity Reaction Status Date / Time bupropion Allergy Intermediate RASH Verified 05/02/22 12:08 pravastatin Allergy Mild HIVES Verified 05/02/22 12:08 Home Medications Medication Instructions Recorded Confirmed Type lorazepam 1 mg tablet 1 mg PO Q8 01/30/18 07/05/22 History Oxygen Home #1 ea 07/06/20 07/05/22 Rx lancets 30 gauge (OneTouch Delica 04/24/21 07/05/22 History Lancets) Miscellaneous Pulmonary Supply #1 ea 08/30/21 07/05/22 Rx prednisone 20 mg tablet 40 mg PO QAM PRN x5 days 06/05/22 07/05/22 History omeprazole 40 mg capsule,delayed 40 mg PO DAILYBB 07/05/22 07/05/22 History release venlafaxine 75 mg tablet 150 mg PO QAM 07/05/22 07/05/22 History Patient History Medical History Abdominal pain Acute exacerbation of chronic obstructive pulmonary disease (COPD) Acute on chronic respiratory failure with hypoxia and hypercapnia Anxiety Anxiety Blood CO2 increased Chronic dyspnea Chronic hypercapnic respiratory failure Chronic obstructive pulmonary disease WEARS O2 AT 3L CONTINUOUS AT HS 2L O2 DURING DAY PRN Chronic obstructive pulmonary disease Chronic respiratory failure COPD exacerbation Dependence on supplemental oxygen Depression DM (diabetes mellitus), type 2 with neurological complications Dyslipidemia End stage COPD Fatty liver Fatty liver GERD (gastroesophageal reflux disease) GERD without esophagitis History of nicotine dependence Hyperlipidemia Hyperlipidemia Hypoxemia Irritable bowel disease Nocturnal hypoxemia Osteoarthritis Post traumatic stress disorder Pulmonary air trapping Pulmonary emphysema Shortness of breath Surgical History History of cardiac cath NO STENTS History of colonoscopy History of discectomy LUMBAR DISCECTOMY History of herniorrhaphy INGUINAL RT/LEFT History of tonsillectomy History of tooth extraction Family History Unknown Family history of diabetes mellitus Family hx colonic polyps Social History Smoking Status: Former smoker Second Hand Exposure: No; Hx Alcohol Use: No Hx Substance Use: Yes Substance Use Type Other:: marijuana teenager through 30 years of age Preferred Language: Azeri Communication Ability: Effective Visual Impairment: No Limitations Telephone Sterilizer Required: No Beliefs That Will Affect Care: None Current Living Situation: Spouse Feels Safe at Home: Yes Assistive Devices: Oxygen - Continuous and Scooter/Electric Scooter Review of Systems Review of Systems: ESAS Pain 0/3 Dyspnea 2/3 Nausea 0/3 Fatigue 2/3 Drowsiness 1/3 Physical Exam Constitutional: no acute distress ENMT: Mouth: oral mucous membranes not dry Respiratory: normal respiratory effort; no labored breathing Cardiovascular: Rate/Rhythm: regular rate and regular rhythm Musculoskeletal: Extremities: extremities normal to inspection Skin: warm and dry Neurologic: Speech / Cognition: normal cognition Genitourinary: continent Results & Data ([facility]) Vital Signs (Past 12 Hours) Vital Signs Temp Pulse Pulse Resp BP Pulse Ox O2 Del Method 07/10/22 11:00 98.1 F 76 18 151/74 H 94 Nasal Cannula 07/10/22 10:40 Nasal Cannula 07/10/22 10:12 Nasal Cannula 07/10/22 07:00 98.2 F 78 18 149/73 H 97 Nasal Cannula 07/10/22 07:06 82 18 98 Nasal Cannula 07/10/22 03:26 80 18 98 07/10/22 03:09 98.2 F 81 18 169/103 H 98 BiPAP 07/10/22 00:02 74 90 O2 Flow Rate FiO2 07/10/22 11:00 2 07/10/22 10:40 2 07/10/22 10:12 3 07/10/22 07:00 2 07/10/22 07:06 2 07/10/22 03:26 35 07/10/22 03:09 07/10/22 00:02 35 PG Care Time/CCT Total # of Minutes Spent Total Time Spent: 68 Total Time Spent with Patient: Total time spent is greater than 50% in coordination of care (as documented) at patient's floor/unit and/or counseling patient:[id number] goals of care, surrogate decision maker, code status, hospice, patient education and support Coding Level of Care Code 90226 INT INP/OBS CARE MIN Diagnoses Dyspnea R06.00 Anxiety F41.9 Palliative care encounter Z51.5
[2022-07-10] MEDS ORDERED: POLYETHYLENE (MIRALAX) 17 GM PACK PO PRN (11:59)
--- NOTE | 2022-07-10 14:09 | Hospitalist Progress Note ---
Date of Service July 10, 2022 Assessment & Plan (1) Acute and chronic respiratory failure: (2) COPD exacerbation: (3) Respiratory acidosis: (4) Dependence on supplemental oxygen: (5) Anxiety: (6) Dyslipidemia: (7) GERD without esophagitis: Plan 67-year-old male chronic respiratory failure secondary to COPD exacerbation. Treat with IV steroids, nebs, Mucinex, IV antibiotics pending blood culture results. Chronic respiratory failure: COPD exacerbation: Hypoxia with home O2 dependence. 4 LNC supplemental O2 at home Takes fluticasone; continue Chest x-ray: Emphysematous changes IV Solu-Medrol every 6 hours Nebs 4 times daily and every 2 as needed Sputum culture pending Flutter valve 4 times daily ISP every while awake Lactate negative Procalcitonin negative Ceftriaxone IV; blood cultures pending; adjust antibiotics as necessary based on results Will add doxycycline on top of ceftriaxone to cover atypicals Appreciate pulmonary input and recommendation ABG-pH 7.26, PCO2 105 and's O2 more than 100, bicarb 37 Administered BiPAP and the patient has been feeling much better this afternoon Clinically much better today Will change nebulized solution to every 4 hourly as needed Much better but getting very short of breath with minimal exertion Has been requiring 3 L at rest to maintain saturation Clinically little better and has been requiring 2 L of oxygen via little cannula Will have a nocturnal pulse oximetry today and ABG in the morning Has trilogy at home Be discharged home tomorrow following PT and OT evaluation Has had palliative care input and recommendation SVT Likely secondary to COPD and hypoxia also being complicated by use of bronchodilators Will make nebulized solutions as needed and continue with inhalers Short lasting Blood pressure was elevated at more than 170 systolic Started on a small dose of beta-amor with 12.5 mg Lopressor twice daily Heart rate seems to be around 100 and in sinus rhythm Has been having salvos of SVT with palpitation and was transferred to PCU last night Appreciate cardiology input and recommendation of using Cardizem Cardizem doses have been increased due to increasing heart rate Heart rate remains stable Anxiety: Takes venlafaxine 150 mg every morning and Ativan 1 mg p.o. every 8; continue Has been taking benzodiazepines 1 mg 3 times daily for a long time Will not touch the dose rather the outpatient provider can help titrating down Has memory impairment and the patient is strongly advised to make an appointment with outpatient neurologist Required an additional dose of Xanax 0.5 mg orally last evening No more anxiety GERD without esophagitis: Takes omeprazole; continue Disposition: PCP: Dr. Martinez CODE STATUS: Full code VTE prophylaxis: Lovenox SQ We will discuss with the for possible palliative care involvement Admission and Anticipated Discharge Date Admission Date: July 05, 2022 Subjective 07/06/2022 The patient was seen and examined in ER in presence of the He has been feeling much better since admission Breathing is better and there is no wheezing No fever and no chills 07/07/2022 The patient was examined in the in medical telemetry unit He was noted to have a few runs of SVT for about a few minutes Reverted to sinus rhythm and did not have any symptoms during the SVT This morning he has been feeling much better and has been communicating normally Denies any wheezing or increasing shortness of breath 07/08/2022 The patient was seen and examined in telemetry unit He was transferred to telemetry unit with salvos of SVT while on the floor Feels palpitation but denies any pain and no shortness of breath No fever and or chills 07/09/2022 The patient was seen and examined in telemetry unit He has been having occasional SVT with heart rate more than 110s Breathing stable at rest Gets very shortness of breath with minimal exertion 07/10/2022 Patient was seen and examined in telemetry unit He has been doing reasonably good today He was seen by palliative and the CODE STATUS was changed to conditional code He does not want to be under hospice care now Review of Systems Review of Systems: All systems reviewed and are unremarkable except as noted below Respiratory: Minimal shortness of breath at rest Physical Exam Physical Exam: Sitting at the edge of the bed with mild to moderate shortness of Constitutional: well developed, well nourished, + ill appearing and + obese Eyes: PERRL, conjunctivae normal, anicteric sclerae ENMT: external ear and nose normal, oropharynx normal Neck: trachea midline, no thyromegaly Respiratory: + respiratory distress (Minimal distress at rest) Auscultation: + diminished lung sounds and + crackles (Bibasilar crackles); no wheezes Cardiovascular: Rate/Rhythm: regular rate, regular rhythm and + tachycardic Heart Sounds: normal S1, normal S2 and + murmur Extremities: no edema Gastrointestinal (Abdomen): Inspection/Auscultation: normal bowel sounds; abdomen not distended Percussion/Palpation: abdomen soft; abdomen nontender Psychiatric: A+Ox3, euthymic affect Lymphatic: no cervical or axillary lymphadenopathy Results & Data Results & Data ([facility]) Vital Signs (Past 12 Hours) Vital Signs Temp Pulse Pulse Resp BP Pulse Ox O2 Del Method 07/10/22 11:00 36.7 C 76 18 151/74 H 94 Nasal Cannula 07/10/22 10:40 Nasal Cannula 07/10/22 10:12 Nasal Cannula 07/10/22 07:00 36.8 C 78 18 149/73 H 97 Nasal Cannula 07/10/22 07:06 82 18 98 Nasal Cannula 07/10/22 03:26 80 18 98 07/10/22 03:09 36.8 C 81 18 169/103 H 98 BiPAP O2 Flow Rate FiO2 07/10/22 11:00 2 07/10/22 10:40 2 07/10/22 10:12 3 07/10/22 07:00 2 07/10/22 07:06 2 07/10/22 03:26 35 07/10/22 03:09 Laboratory Results Short CBC 07/10/22 Range/Units 06:28 WBC 8.87 (4.8-10.8) K/ul Hgb 12.1 L (14.0-18.0) g/dl Hct 38.2 L (42.0-52.0) % Plt Count 258 (130-400) K/uL BMP 07/10/22 06:28 Sodium 142 Potassium 4.3 Chloride 96 L Carbon Dioxide 45 H* BUN 29 H Creatinine 1.16 Glucose 109 H Calcium 9.9 Medications Administered Current Inpatient Medications Aspirin (Aspirin 81 Mg Ectab) 81 mg PO DAILY [facility] Stop: 08/05/22 08:59 Last Admin: 07/10/22 07:57 Dose: 81 mg Budesonide (Budesonide 0.5 Mg/2 Ml Vial (Pulmicort)) 0.5 mg NEB BIDR [facility] Stop: 08/05/22 18:59 Last Admin: 07/10/22 07:26 Dose: 0.5 mg Diltiazem HCl (Diltiazem Hcl 60 Mg Tab) 60 mg PO Q6 [facility] Stop: 08/08/22 11:59 Last Admin: 07/10/22 11:46 Dose: 60 mg Doxycycline Hyclate (Doxycycline Hyclate 100 Mg Cap) 100 mg PO BID [facility] Stop: 07/13/22 20:59 Last Admin: 07/10/22 07:58 Dose: 100 mg Enoxaparin Sodium (Enoxaparin Inj 40 Mg/0.4 Ml Syr) 40 mg SQ DAILY [facility] Stop: 08/06/22 08:59 Last Admin: 07/10/22 07:59 Dose: 40 mg Formoterol Fumarate (Formoterol 20 Mcg/2 Ml Vial) 20 mcg NEB BIDR [facility] Stop: 08/05/22 18:59 Last Admin: 07/10/22 07:26 Dose: 20 mcg Guaifenesin (Guaifenesin 600 Mg Tabcr) 1,200 mg PO Q12 [facility] Stop: 08/04/22 20:59 Last Admin: 07/10/22 07:55 Dose: Not Given Ceftriaxone Sodium 2,000 mg/ (Dextrose) 70 mls @ 100 mls/hr IV Q24H [facility]; Protocol Stop: 07/13/22 17:59 Last Infusion: 07/09/22 18:09 Dose: Infused Methylprednisolone 40 mg/ (Syringe) 0.64 mls @ 1.5 mls/min IV DAILY [facility] Stop: 08/09/22 08:59 Last Admin: 07/10/22 08:00 Dose: 1.5 mls/min Ipratropium [place] (Ipratropium [place] Neb Soln 0.02% 2.5 Ml Vial) 0.5 mg INH Q4H PRN PRN Reason: SOB/WHEEZING Stop: 08/07/22 01:02 Levalbuterol HCl (Levalbuterol 1.25mg/0.5ml Neb) 1.25 mg INH Q4H PRN PRN Reason: SOB/WHEEZING Stop: 08/07/22 01:02 Lorazepam (Lorazepam 1 Mg Tab) 1 mg PO Q8 [facility] Stop: 08/04/22 21:59 Last Admin: 07/10/22 05:14 Dose: 1 mg Meclizine HCl (Meclizine Hcl 25 Mg Tab) 25 mg PO TID PRN PRN Reason: Dizziness Stop: 08/04/22 19:56 Metoprolol Tartrate (Metoprolol Tartrate 25 Mg Tab) 12.5 mg PO BID [facility] Stop: 08/05/22 20:59 Last Admin: 07/10/22 07:57 Dose: 12.5 mg Metoprolol Tartrate (Metoprolol Tartrate 1 Mg/Ml Vial) 5 mg IV Q6 PRN PRN Reason: Tachycardia Stop: 08/07/22 01:02 Last Admin: 07/08/22 10:13 Dose: 5 mg Pantoprazole Sodium (Pantoprazole 40 Mg Tab) 40 mg PO DAILYBB [facility] Stop: 08/05/22 06:29 Last Admin: 07/10/22 05:13 Dose: 40 mg Polyethylene Glycol (Polyethylene (Miralax) 17 Gm Pack) 17 gm PO DAILY PRN PRN Reason: Constipation Stop: 08/09/22 11:58 Sodium Chloride (Sodium Chlor 7% 4 Ml Neb) 4 ml NEB BIDR [facility] Stop: 08/06/22 18:59 Last Admin: 07/10/22 07:05 Dose: 4 ml Umeclidinium [place] (Umeclidinium [place] 62.5mcg/Blister 7 Puffs/Inhaler) 1 puffs INH DAILY [facility] Stop: 08/06/22 08:59 Last Admin: 07/10/22 08:01 Dose: 1 puffs Venlafaxine HCl (Venlafaxine Hcl 50 Mg Tab) 150 mg PO QAM [facility] Stop: 08/05/22 08:59 Last Admin: 07/10/22 07:56 Dose: 150 mg
[2022-07-10] MEDS: cefTRIAXone SODIUM 2,000 MG in DEXTROSE 5% 50 ML IV SCH (17:23)
[2022-07-11] MEDS: LORazepam 1 MG TAB PO SCH ×2 (05:30→14:02)
[2022-07-11] MEDS: dilTIAZem HCl 60 MG TAB PO SCH ×2 (05:30→08:46)
[2022-07-11] MEDS: PANTOprazole 40 MG TAB PO SCH (05:31)
[2022-07-11 06:46] LABS: BUN Creatinine Ratio 25.7 (10-20); Calcium 9.1 mg/dl (8.5-10.1); Est GFR (African American) 84.7 ml/min; Est GFR (Non-African American) 73.1 ml/min; Potassium 4.5 mmol/L (3.5-5.1)
[2022-07-11] MEDS: SODIUM CHLOR 7% 4 ML NEB NEB SCH (07:06)
[2022-07-11] MEDS: BUDESONIDE 0.5 MG/2 ML VIAL (PULMICORT) NEB SCH (07:06)
[2022-07-11] MEDS: FORMOTEROL 20 MCG/2 ML VIAL NEB SCH (07:06)
--- NOTE | 2022-07-11 07:50 | Pulmonology Progress Note ---
Date of Service July 11, 2022 Assessment & Plan (1) Chronic obstructive pulmonary disease: (2) Acute exacerbation of chronic obstructive pulmonary disease (COPD): (3) Ex-smoker: (4) Acute on chronic respiratory failure with hypoxia and hypercapnia: (5) Multiple pulmonary nodules: Plan CT chest 07/06/2022 personally reviewed: Severe centrilobular and paraseptal emphysema appreciated bilaterally No clear consolidative process, multiple small pulmonary nodules appreciated bilaterally No mediastinal lymphadenopathy Chest x-ray 07/06/2022 personally reviewed: Portable hyperinflated film, right lower lobe haziness appreciated which has been chronic. Bilateral costophrenic and cardiophrenic angles are clean. ABG 07/05/2022: 7.26/105/176 on 5 L --> ABG 07/09/2022: 7.34/79/190 on 8 L -- Acute on chronic hypercapnic Hypoxic respiratory failure Secondary to acute COPD exacerbation COVID-19 PCR, influenza A/B, RSV negative Procalcitonin 0.10 BiPAP nightly and as needed shortness of breath Avoid over oxygenating the patient -- Very severe COPD On Trelegy at home Patient also has AVAPS machine at home but is not compliant with it I will change it to Brovana and budesonide nebulized while in the hospital as I am not sure patient has inspiratory capacity to get the benefit of Trelegy inhaler. PFT 01/01/2020 personally reviewed: FVC 1.83 L 41%, FEV1 0.64 L 18%, RV 276%, TLC 131%, RV/TLC 208%, DLCO 30% --Multiple pulmonary nodules appreciated bilaterally Up to 5 mm Repeat screening CAT scan in 1 year --Anxiety Has been on Ativan chronically -- Metabolic alkalosis Likely compensatory to chronic hypercapnic respiratory failure Plan: Instead of Trelegy which she is taking at home would recommend patient to be discharged on Brovana as well as budesonide nebulized. Incruse/Spiriva can be used along with Brovana and budesonide. Complete the course of doxycycline for 5 days Continue with BiPAP nightly as needed shortness of breath Outpatient follow-up with his search engine optimization specialist No further recommendation from pulmonary perspective. We will sign off Please call directly with any questions Case was discussed with Dr. Velasquez Please note the above document was generated using voice recognition software. It may contain grammatical, syntax or spelling errors.Any formal questions or concerns about the content, text or information contained within the body of this dictation should be directly addressed to the provider for clarification. Admission and Anticipated Discharge Date Admission Date: July 05, 2022 Subjective Patient seen and examined at bedside. No acute distress, no dressings overnight He used BiPAP overnight Clinically he is doing much better Shortness of breath is significantly improved Coughing up clear phlegm No nausea vomiting Fair appetite Review of Systems Review of Systems: All systems reviewed & are unremarkable except as noted in Subjective Physical Exam Physical Exam: Constitutional: No acute distress HEENT: EOMI, PERRLA Respiratory system: Decreased air entry bilaterally, no rhonchi, mild crackles bilateral lower lobes, no wheeze CVS: S1-S2 positive, no murmurs or gallops Abdomen: Soft, nontender, nondistended, positive bowel sounds x4, obese Extremities: +2 pulses bilaterally radialis/ dorsalis pedis, no cyanosis, no edema Neuro: Awake alert oriented x3 Psych: Normal mood and affect G/U: No [place] Skin: no rashes, warm and dry Lymphatic: no cervical or axillary lymphadenopathy Results & Data Results & Data ([facility]) Vital Signs (Past 12 Hours) Vital Signs Temp Pulse Pulse Pulse Resp BP Pulse Ox 07/11/22 07:07 74 18 99 07/11/22 03:00 36.6 C 78 18 160/96 H 96 07/11/22 00:45 78 07/10/22 20:00 07/10/22 22:41 36.7 C 78 18 163/88 H 99 O2 Del Method O2 Flow Rate 07/11/22 07:07 Nasal Cannula 2 07/11/22 03:00 Nasal Cannula 3 07/11/22 00:45 07/10/22 20:00 Nasal Cannula 07/10/22 22:41 Nasal Cannula 2 Laboratory Results 07/10/22 06:28 07/11/22 05:37 PG Care Time/CCT Total # of Minutes Spent Total Time Spent with Patient: Total time spent is greater than 50% in coordination of care (as documented) at patient's floor/unit and/or counseling patient: Coding Level of Care Code 06353 SUB INP/OBS CARE 2/35MIN Diagnoses Chronic obstructive pulmonary disease J44.9 Acute exacerbation of chronic obstructive pulmonary disease (COPD) J44.1 Ex-smoker Z87.891 Acute on chronic respiratory failure with hypoxia and hypercapnia J96.21; J96.22 Multiple pulmonary nodules R91.8
--- NOTE | 2022-07-11 08:33 | Electrocardiogram Report ---
Test Reason : Blood Pressure : / mmHG Vent. Rate : 070 BPM Atrial Rate : 070 BPM P-R Int : 126 ms QRS Dur : 072 ms QT Int : 396 ms P-R-T Axes : 052 065 061 degrees QTc Int : 427 ms Poor data quality, interpretation may be adversely affected Sinus rhythm with nonconducted PAC Low voltage QRS Borderline ECG When compared with ECG of 10-JUL-2022 05:41, Premature atrial complexes now present Otherwise no significant change Confirmed by Aric Bartholomew ([id number]) on 07/11/2022 8:33:19 AM Referred By: REFERRED SELF Confirmed By:Aric Bartholomew
[2022-07-11] MEDS: guaiFENesin 600 MG TABCR PO SCH (08:45)
[2022-07-11] MEDS: ENOXAPARIN INJ 40 MG/0.4 ML SYR SQ SCH (08:45)
[2022-07-11] MEDS: methylPREDNISolone 40 MG in SYRINGE 0 ML IV SCH (08:45)
[2022-07-11] MEDS: METOPROLOL TARTRATE 25 MG TAB PO SCH (08:46)
[2022-07-11] MEDS: ASPIRIN 81 MG ECTAB PO SCH (08:46)
[2022-07-11] MEDS: DOXYCYCLINE HYCLATE 100 MG CAP PO SCH (08:46)
[2022-07-11] MEDS: UMECLIDINIUM BROMIDE 62.5MCG/BLISTER 7 PUFFS/INHALER INH SCH (08:47)
[2022-07-11] MEDS: VENLAFAXINE HCL 50 MG TAB PO SCH (08:47)
--- NOTE | 2022-07-11 10:38 | Cardiology Progress Note ---
Date of Service July 11, 2022 Assessment & Plan (1) PSVT (paroxysmal supraventricular tachycardia): (2) Acute on chronic respiratory failure with hypoxia and hypercapnia: (3) COPD exacerbation: Plan 67-year-old patient admitted with acute respiratory failure secondary to COPD ex acerbation. Responding well to oral diltiazem and low-dose beta-amor. Transition to long-acting Cardizem CD 240mg daily and torol XL 25mg daily. Outpatient cardiology follow up in 2-4 weeks. Admission and Anticipated Discharge Date Admission Date: July 05, 2022 Subjective Patient seen and examined at the bedside. Feeling better today. No recurrent SVT overnight. Blood pressure and heart rate improved. Tolerating current medications. Offers no new concerns/complaints. Review of Systems Review of Systems: All systems reviewed & are unremarkable except as noted in Subjective Physical Exam Constitutional: + ill appearing; no acute distress Respiratory: no labored breathing and no retractions Auscultation: + diminished lung sounds (Bilateral.) Cardiovascular: Rate/Rhythm: regular rate and regular rhythm Heart Sounds: normal S1 and normal S2; no murmur Vessels: radial pulses present; no JVD and no carotid bruit Extremities: no edema Gastrointestinal (Abdomen): Inspection/Auscultation: normal bowel sounds; abdomen not distended Percussion/Palpation: abdomen soft; abdomen nontender, no guarding and abdomen not rigid Neurologic: CN's II-XI intact bilaterally and moves all extremities; no focal motor deficits Psychiatric: A+Ox3, euthymic affect Results & Data ([facility]) Vital Signs (Past 12 Hours) Vital Signs Temp Pulse Pulse Pulse Resp BP Pulse Ox 07/11/22 07:47 36.7 C 94 H 18 133/85 92 07/11/22 07:07 74 18 99 07/11/22 03:00 36.6 C 78 18 160/96 H 96 07/11/22 00:45 78 07/10/22 22:41 36.7 C 78 18 163/88 H 99 O2 Del Method O2 Flow Rate 07/11/22 07:47 Nasal Cannula 2 07/11/22 07:07 Nasal Cannula 2 07/11/22 03:00 Nasal Cannula 3 07/11/22 00:45 07/10/22 22:41 Nasal Cannula 2
--- NOTE | 2022-07-11 12:39 | Hospitalist Progress Note ---
Date of Service July 11, 2022 Assessment & Plan (1) Acute and chronic respiratory failure: (2) COPD exacerbation: (3) Respiratory acidosis: (4) Dependence on supplemental oxygen: (5) Anxiety: (6) Dyslipidemia: (7) GERD without esophagitis: Plan 67-year-old male chronic respiratory failure secondary to COPD exacerbation. Treat with IV steroids, nebs, Mucinex, IV antibiotics pending blood culture results. Chronic respiratory failure: COPD exacerbation: Hypoxia with home O2 dependence. 4 LNC supplemental O2 at home Takes fluticasone; continue Chest x-ray: Emphysematous changes IV Solu-Medrol every 6 hours Nebs 4 times daily and every 2 as needed Sputum culture pending Flutter valve 4 times daily ISP every while awake Lactate negative Procalcitonin negative Ceftriaxone IV; blood cultures pending; adjust antibiotics as necessary based on results Will add doxycycline on top of ceftriaxone to cover atypicals Appreciate pulmonary input and recommendation ABG-pH 7.26, PCO2 105 and's O2 more than 100, bicarb 37 Administered BiPAP and the patient has been feeling much better this afternoon Clinically much better today Will change nebulized solution to every 4 hourly as needed Much better but getting very short of breath with minimal exertion Has been requiring 3 L at rest to maintain saturation Clinically little better and has been requiring 2 L of oxygen via little cannula Will have a nocturnal pulse oximetry today and ABG in the morning Has trilogy at home Be discharged home tomorrow following PT and OT evaluation Has had palliative care input and recommendation Patient is for conditional code does not want to be intubated Clinically much better without any symptoms at rest Will be discharged home today If fails physically and mentally ready to go SVT Likely secondary to COPD and hypoxia also being complicated by use of bronchodilators Will make nebulized solutions as needed and continue with inhalers Short lasting Blood pressure was elevated at more than 170 systolic Started on a small dose of beta-amor with 12.5 mg Lopressor twice daily Heart rate seems to be around 100 and in sinus rhythm Has been having salvos of SVT with palpitation and was transferred to PCU last night Appreciate cardiology input and recommendation of using Cardizem Cardizem doses have been increased due to increasing heart rate Heart rate remains stable Anxiety: Takes venlafaxine 150 mg every morning and Ativan 1 mg p.o. every 8; continue Has been taking benzodiazepines 1 mg 3 times daily for a long time Will not touch the dose rather the outpatient provider can help titrating down Has memory impairment and the patient is strongly advised to make an appointment with outpatient neurologist Required an additional dose of Xanax 0.5 mg orally last evening No more anxiety GERD without esophagitis: Takes omeprazole; continue Disposition: PCP: Dr. Martinez CODE STATUS: Full code VTE prophylaxis: Lovenox SQ We will discuss with the for possible palliative care involvement Will get appointment with his healthcare providers Admission and Anticipated Discharge Date Admission Date: July 05, 2022 Subjective 07/06/2022 The patient was seen and examined in ER in presence of the He has been feeling much better since admission Breathing is better and there is no wheezing No fever and no chills 07/07/2022 The patient was examined in the in medical telemetry unit He was noted to have a few runs of SVT for about a few minutes Reverted to sinus rhythm and did not have any symptoms during the SVT This morning he has been feeling much better and has been communicating normally Denies any wheezing or increasing shortness of breath 07/08/2022 The patient was seen and examined in telemetry unit He was transferred to telemetry unit with salvos of SVT while on the floor Feels palpitation but denies any pain and no shortness of breath No fever and or chills 07/09/2022 The patient was seen and examined in telemetry unit He has been having occasional SVT with heart rate more than 110s Breathing stable at rest Gets very shortness of breath with minimal exertion 07/10/2022 Patient was seen and examined in telemetry unit He has been doing reasonably good today He was seen by palliative and the CODE STATUS was changed to conditional code He does not want to be under hospice care now 07/11/2022 The patient was seen and examined in telemetry and He has been feeling much better and remains asymptomatic at rest Still gets shortness of breath with minimal exertion Denies any other significant symptoms He wants to go home and feels physically and mentally ready to go Review of Systems Review of Systems: All systems reviewed and are unremarkable except as noted below Respiratory: No shortness of breath at rest, gets easily tired and short of breath with minimal exertion Physical Exam Physical Exam: Sitting at the edge of the bed with mild to moderate shortness of Constitutional: well developed, well nourished, + ill appearing and + obese Eyes: PERRL, conjunctivae normal, anicteric sclerae ENMT: external ear and nose normal, oropharynx normal Neck: trachea midline, no thyromegaly Respiratory: + respiratory distress (Minimal distress at rest) Auscultation: + diminished lung sounds and + crackles (Bibasilar crackles); no wheezes Cardiovascular: Rate/Rhythm: regular rate, regular rhythm and + tachycardic Heart Sounds: normal S1, normal S2 and + murmur Extremities: no edema Gastrointestinal (Abdomen): Inspection/Auscultation: normal bowel sounds; abdomen not distended Percussion/Palpation: abdomen soft; abdomen nontender Musculoskeletal: No acute arthritis involving any joint Neurologic: Alert, awake and oriented x3. No focal sensory or motor deficit appreciated Psychiatric: A+Ox3, euthymic affect Lymphatic: no cervical or axillary lymphadenopathy Results & Data Results & Data ([facility]) Vital Signs (Past 12 Hours) Vital Signs Temp Pulse Pulse Pulse Resp BP BP 07/11/22 11:04 36.7 C 82 18 158/95 H 07/11/22 08:00 76 07/11/22 08:00 07/11/22 07:47 36.7 C 94 H 18 133/85 07/11/22 07:07 74 18 07/11/22 03:00 36.6 C 78 18 160/96 H 07/11/22 00:45 78 Pulse Ox O2 Del Method O2 Flow Rate 07/11/22 11:04 95 Nasal Cannula 2 07/11/22 08:00 07/11/22 08:00 Nasal Cannula 3 07/11/22 07:47 92 Nasal Cannula 2 07/11/22 07:07 99 Nasal Cannula 2 07/11/22 03:00 96 Nasal Cannula 3 07/11/22 00:45 Laboratory Results BMP 07/11/22 05:37 Sodium 141 Potassium 4.5 Chloride 97 L Carbon Dioxide 45 H* BUN 27 H Creatinine 1.05 Glucose 110 H Calcium 9.1 Medications Administered Current Inpatient Medications Aspirin (Aspirin 81 Mg Ectab) 81 mg PO DAILY [facility] Stop: 08/05/22 08:59 Last Admin: 07/11/22 08:46 Dose: 81 mg Budesonide (Budesonide 0.5 Mg/2 Ml Vial (Pulmicort)) 0.5 mg NEB BIDR [facility] Stop: 08/05/22 18:59 Last Admin: 07/11/22 07:06 Dose: 0.5 mg Diltiazem HCl (Diltiazem Hcl 240 Mg Capcr) 240 mg PO QAM [facility] Stop: 08/10/22 14:59 Doxycycline Hyclate (Doxycycline Hyclate 100 Mg Cap) 100 mg PO BID [facility] Stop: 07/13/22 20:59 Last Admin: 07/11/22 08:46 Dose: 100 mg Enoxaparin Sodium (Enoxaparin Inj 40 Mg/0.4 Ml Syr) 40 mg SQ DAILY [facility] Stop: 08/06/22 08:59 Last Admin: 07/11/22 08:45 Dose: 40 mg Formoterol Fumarate (Formoterol 20 Mcg/2 Ml Vial) 20 mcg NEB BIDR [facility] Stop: 08/05/22 18:59 Last Admin: 07/11/22 07:06 Dose: 20 mcg Guaifenesin (Guaifenesin 600 Mg Tabcr) 1,200 mg PO Q12 [facility] Stop: 08/04/22 20:59 Last Admin: 07/11/22 08:45 Dose: Not Given Ceftriaxone Sodium 2,000 mg/ (Dextrose) 70 mls @ 100 mls/hr IV Q24H [facility]; Protocol Stop: 07/13/22 17:59 Last Infusion: 07/10/22 18:07 Dose: Infused Methylprednisolone 40 mg/ (Syringe) 0.64 mls @ 1.5 mls/min IV DAILY [facility] Stop: 08/09/22 08:59 Last Admin: 07/11/22 08:45 Dose: 1.5 mls/min Ipratropium [place] (Ipratropium [place] Neb Soln 0.02% 2.5 Ml Vial) 0.5 mg INH Q4H PRN PRN Reason: SOB/WHEEZING Stop: 08/07/22 01:02 Levalbuterol HCl (Levalbuterol 1.25mg/0.5ml Neb) 1.25 mg INH Q4H PRN PRN Reason: SOB/WHEEZING Stop: 08/07/22 01:02 Lorazepam (Lorazepam 1 Mg Tab) 1 mg PO Q8 [facility] Stop: 08/04/22 21:59 Last Admin: 07/11/22 05:30 Dose: 1 mg Meclizine HCl (Meclizine Hcl 25 Mg Tab) 25 mg PO TID PRN PRN Reason: Dizziness Stop: 08/04/22 19:56 Metoprolol Succinate (Metoprolol Succ 25mg Ext Rel Tab) [facility] Stop: 08/11/22 08:59 Metoprolol Tartrate (Metoprolol Tartrate 1 Mg/Ml Vial) 5 mg IV Q6 PRN PRN Reason: Tachycardia Stop: 08/07/22 01:02 Last Admin: 07/08/22 10:13 Dose: 5 mg Pantoprazole Sodium (Pantoprazole 40 Mg Tab) 40 mg PO DAILYBB [facility] Stop: 08/05/22 06:29 Last Admin: 07/11/22 05:31 Dose: 40 mg Polyethylene Glycol (Polyethylene (Miralax) 17 Gm Pack) 17 gm PO DAILY PRN PRN Reason: Constipation Stop: 08/09/22 11:58 Last Admin: 07/10/22 14:42 Dose: 17 gm Sodium Chloride (Sodium Chlor 7% 4 Ml Neb) 4 ml NEB BIDR [facility] Stop: 08/06/22 18:59 Last Admin: 07/11/22 07:06 Dose: 4 ml Umeclidinium [place] (Umeclidinium [place] 62.5mcg/Blister 7 Puffs/Inhaler) 1 puffs INH DAILY [facility] Stop: 08/06/22 08:59 Last Admin: 07/11/22 08:47 Dose: 1 puffs Venlafaxine HCl (Venlafaxine Hcl 50 Mg Tab) [facility] Stop: 08/05/22 08:59 Last Admin: 07/11/22 08:47 Dose: 150 mg
[2022-07-11] MEDS ORDERED: dilTIAZem HCL 240 MG CAPCR PO SCH (15:00)
--- NOTE | 2022-07-11 16:46 | Discharge Summary ---
Date of Service July 11, 2022 Admission HPI Per Admitting Provider Mr. Jacinto is a 67-year-old male that presents today with shortness of breath, fever, chills and productive cough that has been occurring over the past 3 days. Patient has chronic respiratory failure related to COPD for which he uses 4 L NC supplemental O2 at baseline at home. He states that his has been ill as well and his overall appetite has been down and he has been more sedentary. Chest x-ray reveals emphysema with chronic change. Some leukocytosis WBC 17.44; otherwise labs appear unremarkable. Creatinine 0.9. Negative for COVID, flu, RSV. Patient denies headache, dizziness, visual changes, auditory changes, recent falls or trauma, nausea, vomiting, diarrhea, abdominal pain, urinary changes. Patient sitting upright in his bed and able to have conversation but does appear to be tight in his chest. He has diminished posterior breath sounds with some expiratory wheezes. He is overall weak but is AOx4. Additional past medical history includes COPD, anxiety, depression, and GERD. Received steroids in ED; will continue with nebulizer treatments 4 times daily and every 2 as needed while obtaining sputum culture and continuation of IV antibiotics with ceftriaxone. Will alter based on blood culture results. Patient will be admitted for further evaluation and management. Please see A/P for further details Admission Exam Per Admitting Provider Physical Exam: Neuro: AAOx4, PERRLA, no aphagia, memory changes, CNII-XII grossly intact HEENT: head normocephalic, moist mucus membranes CV: S1/S2, (-) M/G/R, (-) edema, cap refill < 3 seconds Resp: Lungs decreased. On 4LNC. GI: Abdomen S/NT/ND, Ax4 bowel sounds, (-) CVA tenderness Musculoskeletal: 5/5 B/L UE strength, 5/5 B/L LE strength. No gait disturbance Skin: (-) rashes , (-) erythema. Psych: euthymic, but flat mood Principal Diagnosis Acute exacerbation of COPD, acute on chronic hypoxic and hypercapnic Respiratory failure, multiple pulmonary nodules, PSVT Discharge Exam Sitting at the edge of the bed with mild to moderate shortness of Constitutional well developed, well nourished, + ill appearing and + obese Eyes PERRL, conjunctivae normal, anicteric sclerae ENMT external ear and nose normal, oropharynx normal Neck trachea midline, no thyromegaly Respiratory + respiratory distress (Minimal distress at rest) Auscultation: + diminished lung sounds and + crackles (Bibasilar crackles); no wheezes Cardiovascular Rate/Rhythm: regular rate, regular rhythm and + tachycardic Heart Sounds: normal S1, normal S2 and + murmur Extremities: no edema Gastrointestinal (Abdomen) Inspection/Auscultation: normal bowel sounds; abdomen not distended Percussion/Palpation: abdomen soft; abdomen nontender Psychiatric A+Ox3, euthymic affect Lymphatic no cervical or axillary lymphadenopathy Discharge Data Allergies Allergy/AdvReac Type Severity Reaction Status Date / Time bupropion Allergy Intermediate RASH Verified 05/02/22 12:08 pravastatin Allergy Mild HIVES Verified 05/02/22 12:08 Consultations 07/05/22 16:16 ED Decision to Admit Stat 07/05/22 16:17 Consult Pulmonology Routine 07/08/22 08:00 Consult Cardiology Routine 07/09/22 17:37 Consult Palliative Care Routine Ordered Studies 07/06/22 11:35 CT chest diagnostic wo con Routine Hospital Course (1) Acute and chronic respiratory failure: (2) COPD exacerbation: (3) Respiratory acidosis: (4) Dependence on supplemental oxygen: (5) Anxiety: (6) Dyslipidemia: (7) GERD without esophagitis: Plan 67-year-old male chronic respiratory failure secondary to COPD exacerbation. Treat with IV steroids, nebs, Mucinex, IV antibiotics pending blood culture results. Chronic respiratory failure: COPD exacerbation: Hypoxia with home O2 dependence. 4 LNC supplemental O2 at home Takes fluticasone; continue Chest x-ray: Emphysematous changes IV Solu-Medrol every 6 hours Nebs 4 times daily and every 2 as needed Sputum culture pending Flutter valve 4 times daily ISP every while awake Lactate negative Procalcitonin negative Ceftriaxone IV; blood cultures pending; adjust antibiotics as necessary based on results Will add doxycycline on top of ceftriaxone to cover atypicals Appreciate pulmonary input and recommendation ABG-pH 7.26, PCO2 105 and's O2 more than 100, bicarb 37 Administered BiPAP and the patient has been feeling much better this afternoon Clinically much better today Will change nebulized solution to every 4 hourly as needed Much better but getting very short of breath with minimal exertion Has been requiring 3 L at rest to maintain saturation Clinically little better and has been requiring 2 L of oxygen via little cannula Will have a nocturnal pulse oximetry today and ABG in the morning Has trilogy at home Be discharged home tomorrow following PT and OT evaluation Has had palliative care input and recommendation Patient is for conditional code does not want to be intubated Clinically much better without any symptoms at rest Will be discharged home today If fails physically and mentally ready to go SVT Likely secondary to COPD and hypoxia also being complicated by use of bronchodilators Will make nebulized solutions as needed and continue with inhalers Short lasting Blood pressure was elevated at more than 170 systolic Started on a small dose of beta-amor with 12.5 mg Lopressor twice daily Heart rate seems to be around 100 and in sinus rhythm Has been having salvos of SVT with palpitation and was transferred to PCU last night Appreciate cardiology input and recommendation of using Cardizem Cardizem doses have been increased due to increasing heart rate Heart rate remains stable Anxiety: Takes venlafaxine 150 mg every morning and Ativan 1 mg p.o. every 8; continue Has been taking benzodiazepines 1 mg 3 times daily for a long time Will not touch the dose rather the outpatient provider can help titrating down Has memory impairment and the patient is strongly advised to make an appointment with outpatient neurologist Required an additional dose of Xanax 0.5 mg orally last evening No more anxiety GERD without esophagitis: Takes omeprazole; continue Disposition: PCP: Dr. Martinez CODE STATUS: Full code VTE prophylaxis: Lovenox SQ We will discuss with the for possible palliative care involvement Will get appointment with his healthcare providers Total Time Total Time Spent Total Time Spent (In Minutes): 35 Minutes Discharge Plan Discharge Items Patient Disposition: Home - Home Health Services Reason For Visit: SOB Discharge Diagnosis: Acute exacerbation of COPD, acute on chronic hypoxic and hypercapnic Respiratory failure, multiple pulmonary nodules, PSVT Condition on Discharge: Fair Activity: Resume your previous activity Non-emergency contact: Primary Care Provider Call non-emergency contact if: you have any medication questions and your symptoms worsen Follow-up/Referrals: Kanchan Martinez MD [Primary Care Provider] - (Please make an appointment with your primary care provider within 7 days) Diet: Heart Healthy and Low Sodium (2gm) Addtl Attending Provider Instructions: Please take precautions to avoid falls Take your medications as advised Continue using trilogy machine at night 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 daily for 2 days, 3 p.o. daily for 2 days, 2 p.o. daily for 2 days and then 1 p.o. daily for 2 days budesonide 0.5 mg/2 mL suspension for nebulization 0.5 mg inhalation BID Qty: 60 0RF formoterol fumarate [Perforomist] 20 mcg/2 mL solution for nebulization 2 ml inhalation BID Qty: 120 0RF Continued (DME) Oxygen Home Liters Per Minute See Rx Instructions .MEDSUPPLY Qty: 1 0RF Rx Instructions: Please provide humidification for the oxygen concentrator. Lifetime need. 2lnc (DME) lancets [OneTouch Delica Lancets] 30 gauge misc See Rx Instructions .Route Rx Instructions: As directed (DME) Miscellaneous Pulmonary Supply Misc See Rx Instructions .Route Qty: 1 0RF Rx Instructions: Trilogy device prednisone 20 mg tablet 40 mg PO QAM PRN (Reason: x5 days) Rx Instructions: 07/03/22 lorazepam 1 mg Tablet 1 mg PO Q8 venlafaxine 75 mg tablet 150 mg PO QAM Rx Instructions: 2 tablet dose omeprazole 40 mg capsule,delayed release(DR/EC) 40 mg PO DAILYBB Discharge Orders: Discharge Order (Routine); Ordered 07/11/22 Ordered By: Margarita Velasquez Admission Data Admit Date/Time: 07/05/22 16:17 Attending Provider: Margarita Velasquez Admit Provider: Gissel Mao Primary Care Provider: Kanchan Martinez Other Providers: Gissel Mao ; Svetlana Nazario ; Tree Jane ; Devyn Shrestha ; Hakan Garcia ; Jevon Day ; Jose Manuel Burnett ; Mariano Sanderson ; Marilu Hubbard ; Reema Haider ; Summer Alberto ; Alvarado Clay ; Ira Chaney ; [facility] Other Interventions: Discharge Summary Assessment (RN) Last Done: 07/11/22 13:35
[2022-07-12] MEDS ORDERED: METOPROLOL SUCC 25MG EXT REL TAB PO SCH (09:00)
== END 2022-07-11 15:04 | disposition home health service (06) | DRG 189 ==
LOC: ED 12:41 → SUATTDRO 16:17 → EDINP 16:17 → 2N 19:04 → 2S 07-08 00:48

== ENCOUNTER 2022-07-27 14:01 | Inpatient (IN) ==
--- NOTE | 2022-07-27 14:26 | Emergency Department Note ---
Impression & Plan Acute hypercapnic respiratory failure, Acute exacerbation of chronic obstructive pulmonary disease (COPD), Anemia ED Provider Note NAME: STANLEY COLIN II AGE: 67 SEX: M : 1955 ARRIVES VIA: Ambulance INFORMANT: Patient, ED PROVIDER(S): Jose Santiago MD CHIEF COMPLAINT: Shortness of breath, lethargy MEDICAL DECISION MAKING: Patient presented due to concern for worsening shortness of breath and lethargy. Blood work is obtained the patient was placed on BiPAP and after speaking with respiratory [id number] ABG was obtained as the patient did not have a working line to obtain a VBG. Patient's initial ABG showed a pH of 7.2 with a PCO2 of 116 which showed significant hypercarbia. I did reevaluate the patient several times and the patient did have improving alertness and awareness. Patient's blood work shows a normal white count hemoglobin 11.8 which is shows some anemia which is chronic and stable. Patient's platelet count is unremarkable. Patient's repeat ABG was completed about an hour after the patient been on the BiPAP with a pH of 7.29 and PCO2 of 89 so the patient is showing improvement in symptoms. Patient's additional blood work showed relatively normal electrolytes with exception of elevated bicarb which would be consistent with the patient's hypercarbia and history of COPD. Troponin is not elevated. COVID-negative. The patient's chest x-ray shows emphysematous change. I did speak the on-call hospitalist Virginia Villa PA-C and the patient was admitted by Dr. Palmer. Critical Care: I have personally spent 77 minutes of critical care time in direct management of this patient. This includes bedside care, interpretation of diagnostic studies, and testing, discussion with consultants, patient, and family members, and other require inpatient management activities. This 77 minutes is in excess of all separately billable procedures. Prior /Outside records reviewed: Patient presents via EMS due to concern for increased work of breathing lethargy and SPO2 in the lower 70s. The patient does complain of some dizziness and is on 2 to 3 L nasal cannula at home [facility]. I did review the patient's echocardiogram from [place] completed December 20, 2021. Patient's LV wall thickness is normal with wall motion normal with an LVEF of 55 to 59%. Somewhat limited visualization of the RV but chamber size and systolic function are normal. Patient does have the patient does have a trivial nonloculated pericardial fluid noted. Patient's reports that significant stenotic or regurgitant valvular lesions observed or Doppler interrogation but on review of the patient's aortic valve mitral valve tricuspid valve and pulmonary valve there is no reported significant . Stenosis or regurgitation. I did review the patient's most recent pulmonology note. Differential diagnosis: Reactive airway disease, pneumonia, pneumothorax, COPD, CHF, infections, cardiac ischemia, pulmonary embolism, musculoskeletal, gastrointestinal, as well as other pathologies. Diagnostics, as interpreted by me: ECG: Normal sinus rhythm, rate of 89 normal intervals normal axis T wave version in V2 no obvious ST elevations. Cardiac monitoring: An order was placed for continuous cardiac monitoring. The monitor shows a rate of 92 with sinus rhythm. Patient was placed on pulse oximetry Medical decision rules: None Imaging studies: See below HPI: Patient presents due to concern for worsening weakness and lethargy which is been ongoing for several days. The patient's SPO2 was fairly low into the 70s and does wear 2 to 3 L chronically at baseline. Patient states that he has been taking his BiPAP. The patient has had intermittent chest discomfort no leg swelling or calf pain. Patient denies any fevers or chills no abdominal pain nausea vomiting. Patient does have a known prior history of acute on chronic respiratory failure and COPD. The states after further history was obtained that the patient has had decreased p.o. intake and has not been eating or drinking much and that the patient's BiPAP machine has been out of service for days that they have been unable to repair this the patient has not been able to use it. PAST MEDICAL HISTORY: See Below PAST SURGICAL HISTORY: See Below SOCIAL HISTORY: See Below HOME MEDICATIONS: See Below ALLERGIES: See Below VITALS: See Below PHYSICAL EXAMINATION: GENERAL: NAD, wearing a mask, non-toxic. EYE EXAM: Normal conjunctiva. PERRL, no anisocoria and EOM's grossly intact w/o pain. NECK: Supple, no nuchal rigidity, no adenopathy, non-tender. No signs of meningismus. FROM of the neck with good chin to chest and neck extension. No stridor. LUNGS: Decreased breath sounds throughout. HEART: NSR, no MRG. ABDOMEN: Abdomen soft, non-tender, normo-active bowel sounds, no masses, no rebound or guarding. BACK: No CVA TTP. SKIN: No rashes and no bruising. UPPER EXTREMITIES: Upper extremities are grossly normal. LOWER EXTREMITIES: Grossly normal, no edema. Negative Homans' sign bilaterally NEURO EXAM: Awake and alert follows basic commands oriented to person and place but not to year, cranial nerves II-XII grossly intact, normal speech, moves all 4 extremities. Past Med/Surg History Medical History Abdominal pain Acute exacerbation of chronic obstructive pulmonary disease (COPD) Acute on chronic respiratory failure with hypoxia and hypercapnia Anxiety Anxiety Blood CO2 increased Chronic dyspnea Chronic hypercapnic respiratory failure Chronic obstructive pulmonary disease WEARS O2 AT 3L CONTINUOUS AT HS 2L O2 DURING DAY PRN Chronic obstructive pulmonary disease Chronic respiratory failure COPD exacerbation Dependence on supplemental oxygen Depression DM (diabetes mellitus), type 2 with neurological complications Dyslipidemia End stage COPD Fatty liver Fatty liver GERD (gastroesophageal reflux disease) GERD without esophagitis History of nicotine dependence Hyperlipidemia Hyperlipidemia Hypoxemia Irritable bowel disease Nocturnal hypoxemia Osteoarthritis Post traumatic stress disorder Pulmonary air trapping Pulmonary emphysema Shortness of breath Surgical History History of cardiac cath NO STENTS History of colonoscopy History of discectomy LUMBAR DISCECTOMY History of herniorrhaphy INGUINAL RT/LEFT History of tonsillectomy History of tooth extraction Family History Unknown Family history of diabetes mellitus Family hx colonic polyps Social History Smoking Status: Former smoker Second Hand Exposure: No; Hx Alcohol Use: No Hx Substance Use: Yes Substance Use Type Other:: marijuana teenager through 30 years of age Preferred Language: Luxembourgish Communication Ability: Effective Visual Impairment: No Limitations Vmware Engineer Required: No Beliefs That Will Affect Care: None Current Living Situation: Spouse Feels Safe at Home: Yes Assistive Devices: Oxygen - Continuous and Scooter/Electric Scooter Allergies Allergies Allergy/AdvReac Type Severity Reaction Status Date / Time bupropion Allergy Intermediate RASH Verified 07/27/22 15:57 pravastatin Allergy Intermediate HIVES Verified 07/27/22 15:57 Home Meds Home Medications Medication Instructions Recorded Confirmed lorazepam 1 mg tablet 1 mg PO Q8 01/30/18 07/27/22 lancets 30 gauge (OneTouch Delica 04/24/21 07/27/22 Lancets) prednisone 20 mg tablet 40 mg PO QAM PRN RESCUE KIT x5 days 06/05/22 07/27/22 omeprazole 40 mg capsule,delayed 40 mg PO DAILYBB 07/05/22 07/27/22 release diltiazem HCl 240 mg 240 mg PO DAILY 07/27/22 07/27/22 capsule,extended release 24 hr venlafaxine 150 mg 300 mg PO QAM 07/27/22 07/27/22 capsule,extended release 24 hr Previous Rx's Medication Instructions Recorded Oxygen Home #1 ea 07/06/20 Miscellaneous Pulmonary Supply #1 ea 08/30/21 aspirin 81 mg tablet,delayed 81 mg PO DAILY 30 days #30 tabs 07/11/22 release budesonide 0.5 mg/2 mL suspension 0.5 mg (2 mL) inhalation BID #60 mL 07/11/22 for nebulization formoterol fumarate 20 mcg/2 mL 2 ml inhalation BID #120 mL 07/11/22 solution for nebulization (Perforomist) metoprolol succinate 25 mg 25 mg PO QAM 30 days #30 tabs 07/11/22 tablet,extended release 24 hr umeclidinium 62.5 mcg/actuation 1 puff inhalation DAILY 30 days #1 07/11/22 blister powder for inhalation device (Incruse Ellipta) albuterol sulfate 2.5 mg/3 mL 1.25 mg (1.5 mL) inhalation Q12H 07/12/22 (0.083 %) solution for nebulization PRN bronchospasm #90 mL nebulizer accessories #1 ea 07/17/22 nebulizer and compressor #1 ea 07/17/22 Results & Data (ED) Vital Signs Vital Signs - 24 hr 07/27/22 14:14 07/27/22 14:14 07/27/22 14:14 Temperature 36.7 C 36.7 C Temperature Source Oral Oral Pulse Rate 98 H Pulse Rate [Apical] 91 H Pulse Rate from SpO2 Sensor Respiratory Rate 16 16 Respiratory Effort / Characteristics Respiratory Depth Respiratory Pattern Blood Pressure 148/88 H Blood Pressure [Left Arm] 148/88 H Blood Pressure Mean 108 Blood Pressure Mean [Left Arm] 108 Pulse Oximetry 87 L 97 Oxygen Delivery Method Room Air Nasal Cannula Nasal Cannula Oxygen Flow Rate 3 3 Fraction of Inspired Oxygen Sepsis Recent Fever Within 48 Hours No Sepsis New/Unexplained Change in Mental Status No Sepsis Action Taken by Nursing No Action Required 07/27/22 14:30 07/27/22 15:01 07/27/22 14:37 Temperature Temperature Source Pulse Rate 90 95 H 95 H Pulse Rate [Apical] Pulse Rate from SpO2 Sensor Respiratory Rate 22 18 Respiratory Effort / Characteristics Spontaneous Respiratory Depth Normal Respiratory Pattern Regular Blood Pressure Blood Pressure [Left Arm] Blood Pressure Mean Blood Pressure Mean [Left Arm] Pulse Oximetry 95 99 Oxygen Delivery Method BiPAP Oxygen Flow Rate Fraction of Inspired Oxygen 30 Sepsis Recent Fever Within 48 Hours Sepsis New/Unexplained Change in Mental Status Sepsis Action Taken by Nursing 07/27/22 15:12 07/27/22 16:14 07/27/22 14:17 Temperature Temperature Source Pulse Rate 92 H Pulse Rate [Apical] 92 H Pulse Rate from SpO2 Sensor 91 H Respiratory Rate 22 20 22 Respiratory Effort / Characteristics Spontaneous Non-Labored Respiratory Depth Normal Respiratory Pattern Regular Blood Pressure Blood Pressure [Left Arm] 148/88 H Blood Pressure Mean Blood Pressure Mean [Left Arm] 108 Pulse Oximetry 98 94 97 Oxygen Delivery Method BiPAP CPAP Oxygen Flow Rate Fraction of Inspired Oxygen 30 Sepsis Recent Fever Within 48 Hours Sepsis New/Unexplained Change in Mental Status Sepsis Action Taken by Nursing 07/27/22 14:20 07/27/22 14:30 07/27/22 14:40 Temperature Temperature Source Pulse Rate 90 90 90 Pulse Rate [Apical] Pulse Rate from SpO2 Sensor 90 90 90 Respiratory Rate 21 23 23 Respiratory Effort / Characteristics Respiratory Depth Respiratory Pattern Blood Pressure Blood Pressure [Left Arm] Blood Pressure Mean Blood Pressure Mean [Left Arm] Pulse Oximetry 98 99 95 Oxygen Delivery Method Oxygen Flow Rate Fraction of Inspired Oxygen Sepsis Recent Fever Within 48 Hours Sepsis New/Unexplained Change in Mental Status Sepsis Action Taken by Nursing 07/27/22 14:50 07/27/22 15:00 07/27/22 15:10 Temperature Temperature Source Pulse Rate 88 87 91 H Pulse Rate [Apical] Pulse Rate from SpO2 Sensor 87 88 91 H Respiratory Rate 22 24 23 Respiratory Effort / Characteristics Respiratory Depth Respiratory Pattern Blood Pressure Blood Pressure [Left Arm] Blood Pressure Mean Blood Pressure Mean [Left Arm] Pulse Oximetry 95 97 95 Oxygen Delivery Method Oxygen Flow Rate Fraction of Inspired Oxygen Sepsis Recent Fever Within 48 Hours Sepsis New/Unexplained Change in Mental Status Sepsis Action Taken by Nursing 07/27/22 15:20 07/27/22 15:30 07/27/22 15:40 Temperature Temperature Source Pulse Rate 97 H 91 H 91 H Pulse Rate [Apical] Pulse Rate from SpO2 Sensor 98 H 92 H 101 H Respiratory Rate 17 20 22 Respiratory Effort / Characteristics Respiratory Depth Respiratory Pattern Blood Pressure Blood Pressure [Left Arm] Blood Pressure Mean Blood Pressure Mean [Left Arm] Pulse Oximetry 97 94 88 L Oxygen Delivery Method Oxygen Flow Rate Fraction of Inspired Oxygen Sepsis Recent Fever Within 48 Hours Sepsis New/Unexplained Change in Mental Status Sepsis Action Taken by Nursing 07/27/22 15:50 07/27/22 16:00 07/27/22 16:10 Temperature Temperature Source Pulse Rate 87 88 89 Pulse Rate [Apical] Pulse Rate from SpO2 Sensor 88 89 88 Respiratory Rate 20 25 H 25 H Respiratory Effort / Characteristics Respiratory Depth Respiratory Pattern Blood Pressure Blood Pressure [Left Arm] Blood Pressure Mean Blood Pressure Mean [Left Arm] Pulse Oximetry 93 91 81 L Oxygen Delivery Method Oxygen Flow Rate Fraction of Inspired Oxygen Sepsis Recent Fever Within 48 Hours Sepsis New/Unexplained Change in Mental Status Sepsis Action Taken by Nursing 07/27/22 16:20 07/27/22 16:30 07/27/22 16:40 Temperature Temperature Source Pulse Rate 83 85 85 Pulse Rate [Apical] Pulse Rate from SpO2 Sensor 88 84 Respiratory Rate 20 20 18 Respiratory Effort / Characteristics Respiratory Depth Respiratory Pattern Blood Pressure Blood Pressure [Left Arm] Blood Pressure Mean Blood Pressure Mean [Left Arm] Pulse Oximetry 89 L 93 Oxygen Delivery Method Oxygen Flow Rate Fraction of Inspired Oxygen Sepsis Recent Fever Within 48 Hours Sepsis New/Unexplained Change in Mental Status Sepsis Action Taken by Nursing 07/27/22 16:50 07/27/22 17:00 Temperature Temperature Source Pulse Rate 86 86 Pulse Rate [Apical] Pulse Rate from SpO2 Sensor 86 86 Respiratory Rate 20 20 Respiratory Effort / Characteristics Respiratory Depth Respiratory Pattern Blood Pressure Blood Pressure [Left Arm] Blood Pressure Mean Blood Pressure Mean [Left Arm] Pulse Oximetry 76 L 92 Oxygen Delivery Method Oxygen Flow Rate Fraction of Inspired Oxygen Sepsis Recent Fever Within 48 Hours Sepsis New/Unexplained Change in Mental Status Sepsis Action Taken by Alf Medications Current Medication List: was personally reviewed by me Laboratory Data Attestation: I reviewed the patient's lab results. 07/27/22 14:33 07/27/22 14:33 Lab Results 07/27/22 07/27/22 07/27/22 Range/Units 14:33 14:33 14:33 WBC 8.68 (4.8-10.8) K/ul RBC 4.01 L (4.70-6.10) M/uL Hgb 11.8 L (14.0-18.0) g/dl POC Hgb (14.0-18.0) g/dl Hct 38.8 L (42.0-52.0) % POC Hct (42-52) % MCV 96.8 (80.0-100.0) fL MCH 29.4 (25.0-34.0) pg MCHC 30.4 L (32.0-36.0) g/dL RDW Std Deviation 42.0 (36.4-46.3) fL RDW Coeff of Ashley 11.9 (11.5-14.5) % Plt Count 215 (130-400) K/uL MPV 10.5 (9.4-12.4) fL Immature Gran % (Auto) 0.3 % Neut % (Auto) 81.6 % Lymph % (Auto) 7.7 % [place] % (Auto) 7.0 % Eos % (Auto) 2.9 % Baso % (Auto) 0.5 % Neut # (Auto) 7.08 H (1.40-6.50) K/uL Lymph # (Auto) 0.67 L (1.2-3.4) K/uL [place] # (Auto) 0.61 H (0.11-0.59) K/uL Eos # (Auto) 0.25 (0-0.50) K/uL Baso # (Auto) 0.04 (0-0.2) K/uL Immature Gran # (Auto) 0.03 (0.01-0.20) K/uL POC pH (7.35-7.45) POC pCO2 (35-46) mmHg POC pO2 (80-95) mmHg POC HCO3 (19-24) rob/L POC Total CO2 (24-31) mmol/L POC Base Excess (-9-1.8) rob/L POC ABG O2 Sat (90-95) % POC Sodium (135-144) mmol/L Sodium 138 (136-145) mmol/L POC Potassium (3.3-5.0) mmol/L Potassium 4.5 (3.5-5.1) mmol/L Chloride 93 L (98-107) mmol/L Carbon Dioxide 42 H* (21-32) mmol/L Anion Gap 3 (3-11) BUN 13 (6-23) mg/dl Creatinine 0.84 (0.6-1.4) mg/dl Est Cr Clr Drug Dosing 96.6 ml/min Est GFR ( Amer) 105.0 ml/min Est GFR (Non-Af Amer) 90.6 ml/min BUN/Creatinine Ratio 15.5 (10-20) Glucose 137 H (70-99(Fasting)) mg/dl Calcium 9.7 (8.5-10.1) mg/dl Magnesium 1.8 (1.7-2.4) mg/dl Total Bilirubin 0.3 (0.2-1.0) mg/dl AST 12 L (13-39) U/L ALT 21 (7-52) U/L Alkaline Phosphatase 93 (34-104) U/L Troponin I High Sens 8.6 (0-20) pg/ml Total Protein 7.0 (6.0-8.3) gm/dl Albumin 3.8 (3.4-5.0) gm/dl Globulin 3.2 (2.5-4.0) gm/dl Albumin/Globulin Ratio 1.2 (0.9-2) TSH 1.510 (0.300-4.500) uIu/ml SARS-CoV-2, RNA, NAAT (NEGATIVE) 07/27/22 07/27/22 07/27/22 Range/Units 15:02 15:22 16:28 WBC (4.8-10.8) K/ul RBC (4.70-6.10) M/uL Hgb (14.0-18.0) g/dl POC Hgb 12.6 L (14.0-18.0) g/dl Hct (42.0-52.0) % POC Hct 37 L (42-52) % MCV (80.0-100.0) fL MCH (25.0-34.0) pg MCHC (32.0-36.0) g/dL RDW Std Deviation (36.4-46.3) fL RDW Coeff of Ashley (11.5-14.5) % Plt Count (130-400) K/uL MPV (9.4-12.4) fL Immature Gran % (Auto) % Neut % (Auto) % Lymph % (Auto) % [place] % (Auto) % Eos % (Auto) % Baso % (Auto) % Neut # (Auto) (1.40-6.50) K/uL Lymph # (Auto) (1.2-3.4) K/uL [place] # (Auto) (0.11-0.59) K/uL Eos # (Auto) (0-0.50) K/uL Baso # (Auto) (0-0.2) K/uL Immature Gran # (Auto) (0.01-0.20) K/uL POC pH 7.20 L 7.30 L (7.35-7.45) POC pCO2 > 115 H 89 H (35-46) mmHg POC pO2 88 57 L (80-95) mmHg POC HCO3 46 H 44 H (19-24) rob/L POC Total CO2 > 40 H* > 40 H* (24-31) mmol/L POC Base Excess 18.0 H 17.0 H (-9-1.8) rob/L POC ABG O2 Sat 93.0 84.0 L (90-95) % POC Sodium 136 (135-144) mmol/L Sodium (136-145) mmol/L POC Potassium 4.8 (3.3-5.0) mmol/L Potassium (3.5-5.1) mmol/L Chloride (98-107) mmol/L Carbon Dioxide (21-32) mmol/L Anion Gap (3-11) BUN (6-23) mg/dl Creatinine (0.6-1.4) mg/dl Est Cr Clr Drug Dosing ml/min Est GFR ( Amer) ml/min Est GFR (Non-Af Amer) ml/min BUN/Creatinine Ratio (10-20) Glucose (70-99(Fasting)) mg/dl Calcium (8.5-10.1) mg/dl Magnesium (1.7-2.4) mg/dl Total Bilirubin (0.2-1.0) mg/dl AST (13-39) U/L ALT (7-52) U/L Alkaline Phosphatase (34-104) U/L Troponin I High Sens (0-20) pg/ml Total Protein (6.0-8.3) gm/dl Albumin (3.4-5.0) gm/dl Globulin (2.5-4.0) gm/dl Albumin/Globulin Ratio (0.9-2) TSH (0.300-4.500) uIu/ml SARS-CoV-2, RNA, NAAT NEGATIVE (NEGATIVE) Administered Medications Discontinued Medications Albuterol (Albut/Ipratrop 3mg/0.5mg Neb 3 Ml Vial) 3 ml NEB NOW STA; Protocol Stop: 07/27/22 14:38 Last Admin: 07/27/22 15:12 Dose: 3 ml Documented By: Gene Sodium Chloride (Nss) 500 mls @ 999 mls/hr IV .Q31M ROMEO Stop: 07/27/22 15:15 Last Infusion: 07/27/22 18:27 Dose: 0 mls/hr Documented By: Admin: 07/27/22 15:20 Dose: 999 mls/hr Documented By: AYAD Magnesium Sulfate/Dextrose (Magnesium Sulfate / D5w) 1 gm in 100 mls @ 200 mls/hr IV Q1H ROMOE Stop: 07/27/22 16:14 Last Infusion: 07/27/22 18:27 Dose: 0 mls/hr Documented By: Admin: 07/27/22 16:45 Dose: 100 mls/hr Documented By: Infusion: 07/27/22 16:12 Dose: 0 mls/hr Documented By: Admin: 07/27/22 15:19 Dose: 200 mls/hr Documented By: AYAD Methylprednisolone (Methylprednisolone 125 Mg/2 Ml Vial) 125 mg IV NOW STA Stop: 07/27/22 14:38 Last Admin: 07/27/22 15:19 Dose: 125 mg Documented By: HI Imaging Data Radiologist's Impression: Chest X-Ray 07/27/22 14:37 XR chest 1V portable CLINICAL HISTORY: weakness TECHNIQUE: Single frontal radiograph of the chest was obtained. Comparison: Comparison is made to chest radiograph 07/06/[address] chest to 08/20/2022 FINDINGS: No lines and tubes are seen. The cardiomediastinal silhouette is normal. Emphysema is seen. Interstitial thickening is noted in the lung bases. No definite airspace opacity. No evidence of pleural effusion or pneumothorax. IMPRESSION: Prominent emphysema. No definite airspace opacity to suggest aspir ation/pneumonia. ACT 112: Negative or not required by law. Electronically signed by: Darin Stern M.D. 07/27/2022 3:25 PM Discharge Plan Visit Data Chief Complaint: Lethargic Stated Complaint: copd ED Provider: Jose Santiago Discharge Problem: Acute hypercapnic respiratory failure, Acute exacerbation of chronic obstructive pulmonary disease (COPD), Anemia Patient Disposition: Admitted As Inpatient Forms Stand Alone Forms: [facility] Prescriptions Prescriptions: No Action (DME) Oxygen Home Liters Per Minute See Rx Instructions .MEDSUPPLY Qty: 1 0RF Rx Instructions: Please provide humidification for the oxygen concentrator. Lifetime need. 2lnc (DME) nebulizer accessories Kit See Rx Instructions .ROUTE .MEDSUPPLY Qty: 1 0RF Rx Instructions: nebulizer mask (DME) nebulizer and compressor Device See Rx Instructions .ROUTE .MEDSUPPLY Qty: 1 0RF Rx Instructions: As directed (DME) lancets [OneTouch Delica Lancets] 30 gauge misc See Rx Instructions .Route Rx Instructions: As directed (DME) Miscellaneous Pulmonary Supply Misc See Rx Instructions .Route Qty: 1 0RF Rx Instructions: Trilogy device prednisone 20 mg tablet 40 mg PO QAM PRN (Reason: RESCUE KIT x5 days) lorazepam 1 mg Tablet 1 mg PO Q8 omeprazole 40 mg capsule,delayed release(DR/EC) 40 mg PO DAILYBB metoprolol succinate 25 mg Tablet Extended Release 24 Hr 25 mg PO QAM 30 Days Qty: 30 0RF Incruse Ellipta 62.5 mcg/actuation Blister With Device 1 puff inhalation DAILY 30 Days Qty: 1 0RF aspirin 81 mg Tablet,Delayed Release (Dr/Ec) 81 mg PO DAILY 30 Days Qty: 30 0RF budesonide 0.5 mg/2 mL suspension for nebulization 0.5 mg inhalation BID Qty: 60 0RF formoterol fumarate [Perforomist] 20 mcg/2 mL solution for nebulization 2 ml inhalation BID Qty: 120 0RF albuterol sulfate 2.5 mg /3 mL (0.083 %) solution for nebulization 1.25 mg inhalation Q12H PRN (Reason: bronchospasm) Qty: 90 0RF venlafaxine 150 mg capsule,extended release 24hr 300 mg PO QAM diltiazem HCl 240 mg capsule,extended release 24hr 240 mg PO DAILY Referrals Referrals: Kanchan Martinez MD [Primary Care Provider] -
[2022-07-27] MEDS ORDERED: ALBUT/IPRATROP 3MG/0.5MG NEB 3 ML VIAL NEB STA (14:37)
[2022-07-27] MEDS ORDERED: methylPREDNISolone 125 MG/2 ML VIAL IV STA (14:37)
[2022-07-27] MEDS ORDERED: SODIUM CHLORIDE 0.9% 500 ML IV SCH (14:45)
[2022-07-27 15:15] LABS: iSTAT Arterial Blood Gas HCO3 46 meg/L (19-24); iSTAT Arterial Blood Gas pCO2 > 115 mmHg (35-46); iSTAT Arterial Blood Gas pO2 88 mmHg (80-95); iSTAT Carbon Dioxide > 40 mmol/L (24-31)
[2022-07-27] MEDS: MAGNESIUM SULFATE / D5W 1 GM/100 ML BAG IV SCH ×2 (15:19→16:45)
--- NOTE | 2022-07-27 15:27 | XRay Report ---
XR chest 1V portable CLINICAL HISTORY: weakness TECHNIQUE: Single frontal radiograph of the chest was obtained. Comparison: Comparison is made to chest radiograph 07/06/[address] chest to 08/20/2022 FINDINGS: No lines and tubes are seen. The cardiomediastinal silhouette is normal. Emphysema is seen. Interstit ial thickening is noted in the lung bases. No definite airspace opacity. No evidence of pleural effus ion or pneumothorax. IMPRESSION: Prominent emphysema. No definite airspace opacity to suggest aspiration/pneumonia. ACT 112: Negative or not required by law. Electronically signed by: Darin Stern M.D. 07/27/2022 3:25 PM
[2022-07-27 15:28] LABS: Albumin Globulin Ratio 1.2 (0.9-2); Albumin Level 3.8 gm/dl (3.4-5.0); BUN Creatinine Ratio 15.5 (10-20); Bilirubin,Total 0.3 mg/dl (0.2-1.0); Calcium 9.7 mg/dl (8.5-10.1); Creatinine Clr Calc Pharmacy 96.6 ml/min; Est GFR (Non-African American) 90.6 ml/min; Globulin 3.2 gm/dl (2.5-4.0); Magnesium 1.8 mg/dl (1.7-2.4); Potassium 4.5 mmol/L (3.5-5.1); Troponin I High Sensitivity 8.6 pg/ml (0-20)
[2022-07-27 15:31] LABS: Basophils # (auto) 0.04 K/uL (0-0.2); Basophils % (auto) 0.5 %; Eosinophils # (auto) 0.25 K/uL (0-0.50); Eosinophils % (auto) 2.9 %; Hematocrit (blood only) 38.8 % (42.0-52.0); Hemoglobin 11.8 g/dl (14.0-18.0); Immature Granulocytes # (auto) 0.03 K/uL (0.01-0.20); Immature Granulocytes % (auto) 0.3 %; Lymphocytes # (auto) 0.67 K/uL (1.2-3.4); Lymphocytes % (auto) 7.7 %; Mean Corpuscular Hemoglobin 29.4 pg (25.0-34.0); Mean Corpuscular Hgb Conc 30.4 g/dL (32.0-36.0); Mean Corpuscular Volume 96.8 fL (80.0-100.0); Mean Platelet Volume 10.5 fL (9.4-12.4); Monocytes # (auto) 0.61 K/uL (0.11-0.59); Neutrophils # (auto) 7.08 K/uL (1.40-6.50); Neutrophils % (auto) 81.6 %; Platelet Count 215 K/uL (130-400); RDW Coefficient of Variation 11.9 % (11.5-14.5); Red Blood Count 4.01 M/uL (4.70-6.10); White Blood Count 8.68 K/ul (4.8-10.8)
--- NOTE | 2022-07-27 16:16 | History & Physical Report ---
Date of Service July 27, 2022 Assessment & Plan (1) Acute on chronic respiratory failure with hypoxia and hypercapnia: (2) Respiratory acidosis: (3) COPD exacerbation: (4) PSVT (paroxysmal supraventricular tachycardia): Plan This is a 67-year-old male who has a significant past medical history of chronic hypoxic and hypercarbic respiratory failure in setting of COPD, T2DM, HLD, fatty liver, GERD, BPH, normocytic anemia, depression, PTSD, history of tobacco use who presents to ED with at bedside secondary to increasing shortness of breath, lethargy and confusion worsening for several days. Acute on chronic respiratory failure with hypoxia and hypercapnia Acute respiratory acidosis COPD exacerbation admit to PCU continue bipap pulm toilet with nebs, incentive spirometry IV solumedrol IV azithromycin for copd exac will consult pulm pt reports difficulty with bipap at OP as its not working will need to discuss with pulm options prior to pt being discharged History of PSVT Occurred during last admission Started on diltiazem and metoprolol, continue this Anxiety, PTSD Continue venlafaxine, ativan Gerd continue PPI Hx of T2DM bsg 137 on admission accuchecks ac/hs, not on meds last a1c 5.6 05/23/22 due to IV steriods will monitor bsg DVT prophylaxis: SQ Lovenox Dispo:admit to PCU PCP: Kanchan Martinez Code Status: Conditional, No mech ventilation, okay for cpr A total of 80 minutes was spent with greater than 50% of that time personally viewing all current laboratory work and diagnostic imaging studies obtained in the ED. Additionally, I was able to view the patients past medication reconciliation and history with direct visualization in the patients chart. Included in the time above, a portion of that time was spent assessing the patient while discussing and collaborating with specialists, if necessary, and making medical decision making on treatment plan. All of the above was colla borated with Dr. Palmer. Please see addendum for further details. History of Present Illness Chief Complaint: SOB, lethargy and hypoxia for several days. Primary Care Provider: Kanchan Martinez MD This is a 67-year-old male who has a significant past medical history of chronic hypoxic and hypercarbic respiratory failure in setting of COPD, T2DM, HLD, fatty liver, GERD, BPH, normocytic anemia, depression, PTSD, history of tobacco use who presents to ED with at bedside secondary to increasing shortness of breath, lethargy and confusion worsening for several days. Of significance patient was recently hospitalized 07/05 to 07/11/2022 secondary to COPD exacerbation. Patient was treated with IV Solu-Medrol, pulmonary toilet, antibiotics and BiPAP therapy. Hospital course was complicated by SVT which was felt to be secondary to underlying lung disease. He was started on long-acting Cardizem as well as Toprol. He was seen and evaluated by cardiology. He presents today again with at bedside. Apparently patient's home BiPAP machine has not been working for the past week. He simply on 2 to 3 L of nasal cannula chronically. During most recent hospitalization he was seen and evaluated by palliative care. He did decide he would not want artificial ventilation but would want other CPR measures. He did not wish to pursue hospice at this time. Pt is at bedside and provides most of hx due to pt being on bipap. She states his home bipap machine is working appropriately. Since he discharged from hospital he has not been using it. The company he uses for bipap is currently working on it. He follows with Dr. Coon for Pulm. states pt has been more drowsy and lethargic. It has been becoming increasingly worse over the past week. Currently he is much more awake and alert then when he first came to hosp. Pt denies cough, f,c,s chest pain, uri sx, n/v/d, abd pain. Overall he has a generally poor appetite. In ED pt was found to be significantly hypercarbic with CO2 >115 and ph 7.2. He was placed on bipap and during our eval repeat abg showed improvement with pH of 7.3 and co2 of 89. CXR showed emphysema but no acute abnormality. He was given neb tx as well as IV magnesium and solumedrol. Allergies Allergy/AdvReac Type Severity Reaction Status Date / Time bupropion Allergy Intermediate RASH Verified 07/27/22 15:57 pravastatin Allergy Intermediate HIVES Verified 07/27/22 15:57 Home Medications Medication Instructions Recorded Confirmed Type lorazepam 1 mg tablet 1 mg PO Q8 01/30/18 07/27/22 History Oxygen Home #1 ea 07/06/20 07/27/22 Rx lancets 30 gauge (OneTouch Delica 04/24/21 07/27/22 History Lancets) Miscellaneous Pulmonary Supply #1 ea 08/30/21 07/27/22 Rx prednisone 20 mg tablet 40 mg PO QAM PRN RESCUE KIT x5 days 06/05/22 07/27/22 History omeprazole 40 mg capsule,delayed 40 mg PO DAILYBB 07/05/22 07/27/22 History release aspirin 81 mg tablet,delayed 81 mg PO DAILY 30 days #30 tabs 07/11/22 07/27/22 Rx release budesonide 0.5 mg/2 mL suspension 0.5 mg (2 mL) inhalation BID #60 mL 07/11/22 07/27/22 Rx for nebulization formoterol fumarate 20 mcg/2 mL 2 ml inhalation BID #120 mL 07/11/22 07/27/22 Rx solution for nebulization (Perforomist) metoprolol succinate 25 mg 25 mg PO QAM 30 days #30 tabs 07/11/22 07/27/22 Rx tablet,extended release 24 hr umeclidinium 62.5 mcg/actuation 1 puff inhalation DAILY 30 days #1 07/11/22 07/27/22 Rx blister powder for inhalation device (Incruse Ellipta) albuterol sulfate 2.5 mg/3 mL 1.25 mg (1.5 mL) inhalation Q12H 07/12/22 07/27/22 Rx (0.083 %) solution for nebulization PRN bronchospasm #90 mL nebulizer accessories #1 ea 07/17/22 07/27/22 Rx nebulizer and compressor #1 ea 07/17/22 07/27/22 Rx diltiazem HCl 240 mg 240 mg PO DAILY 07/27/22 07/27/22 History capsule,extended release 24 hr venlafaxine 150 mg 300 mg PO QAM 07/27/22 07/27/22 History capsule,extended release 24 hr Past Med/Surg History Medical History Abdominal pain Acute exacerbation of chronic obstructive pulmonary disease (COPD) Acute on chronic respiratory failure with hypoxia and hypercapnia Anxiety Anxiety Blood CO2 increased Chronic dyspnea Chronic hypercapnic respiratory failure Chronic obstructive pulmonary disease WEARS O2 AT 3L CONTINUOUS AT HS 2L O2 DURING DAY PRN Chronic obstructive pulmonary disease Chronic respiratory failure COPD exacerbation Dependence on supplemental oxygen Depression DM (diabetes mellitus), type 2 with neurological complications Dyslipidemia End stage COPD Fatty liver Fatty liver GERD (gastroesophageal reflux disease) GERD without esophagitis History of nicotine dependence Hyperlipidemia Hyperlipidemia Hypoxemia Irritable bowel disease Nocturnal hypoxemia Osteoarthritis Post traumatic stress disorder Pulmonary air trapping Pulmonary emphysema Shortness of breath Surgical History History of cardiac cath NO STENTS History of colonoscopy History of discectomy LUMBAR DISCECTOMY History of herniorrhaphy INGUINAL RT/LEFT History of tonsillectomy History of tooth extraction Family History Unknown Family history of diabetes mellitus Family hx colonic polyps Social History Smoking Status: Former smoker Second Hand Exposure: No; Hx Alcohol Use: No Hx Substance Use: Yes Substance Use Type Other:: marijuana teenager through 30 years of age Preferred Language: Estonian Communication Ability: Effective Visual Impairment: No Limitations Passenger Rate Clerk Required: No Beliefs That Will Affect Care: None Current Living Situation: Spouse Feels Safe at Home: Yes Assistive Devices: Oxygen - Continuous and Scooter/Electric Scooter Review of Systems Review of Systems: All systems reviewed & are unremarkable except as noted in HPI & below Physical Exam Physical Exam: please refer to Dr. Palmer for physical exam findings Results & Data Results & Data ([facility]) Vital Signs (Past 12 Hours) Vital Signs Temp Pulse Pulse Resp BP BP Pulse Ox 07/27/22 15:12 92 H 22 98 07/27/22 14:37 95 H 18 99 07/27/22 15:01 95 H 22 95 07/27/22 14:30 90 07/27/22 14:14 36.7 C 91 H 16 148/88 H 97 07/27/22 14:14 07/27/22 14:14 36.7 C 98 H 16 148/88 H 87 L O2 Del Method O2 Flow Rate FiO2 07/27/22 15:12 BiPAP 30 07/27/22 14:37 BiPAP 07/27/22 15:01 30 07/27/22 14:30 07/27/22 14:14 Nasal Cannula 3 07/27/22 14:14 Nasal Cannula 3 07/27/22 14:14 Room Air Diagnostic Findings Chest X-Ray 07/27/22 14:37 XR chest 1V portable CLINICAL HISTORY: weakness TECHNIQUE: Single frontal radiograph of the chest was obtained. Comparison: Comparison is made to chest radiograph 07/06/[address] chest to 08/20/2022 FINDINGS: No lines and tubes are seen. The cardiomediastinal silhouette is normal. Emphysema is seen. Interstitial thickening is noted in the lung bases. No definite airspace opacity. No evidence of pleural effusion or pneumothorax. IMPRESSION: Prominent emphysema. No definite airspace opacity to suggest aspiration/pneumonia. ACT 112: Negative or not required by law. Electronically signed by: Darin Stern M.D. 07/27/2022 3:25 PM Medications Administered Medication List Discontinued Medications Albuterol (Albut/Ipratrop 3mg/0.5mg Neb 3 Ml Vial) 3 ml NEB NOW STA; Protocol Stop: 07/27/22 14:38 Last Admin: 07/27/22 15:12 Dose: 3 ml Documented By: EDISON Sodium Chloride (Nss) 500 mls @ 999 mls/hr IV .Q31M ROMEO Stop: 07/27/22 15:15 Last Admin: 07/27/22 15:20 Dose: 999 mls/hr Documented By: AYAD Magnesium Sulfate/Dextrose (Magnesium Sulfate / D5w) 1 gm in 100 mls @ 200 mls/hr IV Q1H [facility] Stop: 07/27/22 16:14 Last Infusion: 07/27/22 16:12 Dose: 0 mls/hr Documented By: Admin: 07/27/22 15:19 Dose: 200 mls/hr Documented By: AYAD Methylprednisolone (Methylprednisolone 125 Mg/2 Ml Vial) 125 mg IV NOW STA Stop: 07/27/22 14:38 Last Admin: 07/27/22 15:19 Dose: 125 mg Documented By: AYAD ECG Rate (beats per minute): 89 Rhythm: normal sinus Additional Comments: ecg viewed by tx COVID-19 Results Results COVID-19 Adm Lab Results: RBC 4.01 M/uL (4.70-6.10) L 07/27/22 WBC 8.68 K/ul (4.8-10.8) 07/27/22 Hgb 11.8 g/dl (14.0-18.0) L 07/27/22 Hct 38.8 % (42.0-52.0) L 07/27/22 Plt Count 215 K/uL (130-400) 07/27/22 Neutrophils (%) (Auto) 81.6 % 07/27/22 Lymphocytes (%) (Auto) 7.7 % 07/27/22 Monocytes # (Auto) 0.61 K/uL (0.11-0.59) H 07/27/22 Eosinophils # (Auto) 0.25 K/uL (0-0.50) 07/27/22 Immature Granulocyte % (Auto) 0.3 % 07/27/22 Neutrophils # (Auto) 7.08 K/uL (1.40-6.50) H 07/27/22 Lymphocytes # (Auto) 0.67 K/uL (1.2-3.4) L 07/27/22 Monocytes # (Auto) 0.61 K/uL (0.11-0.59) H 07/27/22 Eosinophils # (Auto) 0.25 K/uL (0-0.50) 07/27/22 Basophils # (Auto) 0.04 K/uL (0-0.2) 07/27/22 Immature Granulocyte # (Auto) 0.03 K/uL (0.01-0.20) 3 Na 138 mmol/L (136-145) 07/27/22 K 4.5 mmol/L (3.5-5.1) 07/27/22 Cl 93 mmol/L (98-107) L 07/27/22 CO2 42 mmol/L (21-32) H* 07/27/22 Anion Gap 3 (3-11) 07/27/22 BUN 13 mg/dl (6-23) 07/27/22 Creatinine 0.84 mg/dl (0.6-1.4) 07/27/22 BUN/Creatinine Ratio 15.5 (10-20) 07/27/22 Glucose Level 137 mg/dl (70-99(Fasting)) H 07/27/22 Ca 9.7 mg/dl (8.5-10.1) 07/27/22 Total Bilirubin 0.3 mg/dl (0.2-1.0) 07/27/22 AST/SGOT 12 U/L (13-39) L 07/27/22 ALT/SGPT 21 U/L (7-52) 07/27/22 Alkaline Phosphatase 93 U/L (34-104) 07/27/22 Total Protein 7.0 gm/dl (6.0-8.3) 07/27/22 Albumin 3.8 gm/dl (3.4-5.0) 07/27/22 Globulin 3.2 gm/dl (2.5-4.0) 07/27/22 Albumin/Globulin Ratio 1.2 (0.9-2) 07/27/22 SARS-CoV-2, RNA, NAAT NEGATIVE (NEGATIVE) 07/27/22 POC pH 7.30 (7.35-7.45) L 07/27/22 POC pCO2 89 mmHg (35-46) H 07/27/22 POC pO2 57 mmHg (80-95) L 07/27/22 POC HCO3 44 rob/L (19-24) H 07/27/22 POC Total CO2 > 40 mmol/L (24-31) H* 07/27/22 POC Base Excess 17.0 rob/L (-9-1.8) H 07/27/22 Chest X-Ray 07/27/22 Code Status & VTE Plan Code Status Conditional code no mech ventilation, yes to cpr Supervising Physician Co-Signing Physician Notes Date of Service: July 27, 2022 History and physical exam performed by me. History obtained from patient and was at bedside, notable for 67-year-old man with history of COPD on chronic 4 L of oxygen who presents with increased lethargy, somnolence and feeling unwell over the past few days. reported that patient's home NIV machine has not been working very well and he had somebody come to check it out on Saturday. Stated that patient has not been using it since. Denied any worsening cough, fevers. Reported some chest tightness earlier which is resolved. On exam, General: In no distress, on BIPAP Eyes: PERRL, conjunctivae normal, not pale, anicteric sclerae, EOM intact bilaterally ENMT: BIPAP mask on Respiratory: Normal respiratory effort, on BIPAP, globally diminished breath sounds, Cardiovascular: RRR S1 S2 Gastrointestinal (Abdomen): Abdomen is not distended, soft, non-tender to palpation, no guarding, no palpable hepatosplenomegaly, normal bowel sounds Musculoskeletal: No pedal edema Neurologic: Alert and oriented x 3, No focal weakness, sensation grossly intact Psychiatric: Euthymic affect Labs notable for hemoglobin of 11.8, bicarb of 42. Initial ABG pH of 7.2 PCO2 of more than 115 PO2 of 88. Chest x-ray did not show any acute abnormality. Acute on chronic respiratory failure with hypoxia and hypercarbia. 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 Continue BiPAP. ABG is improving with pH of 7.3, PCO2 of 89, Continue IV steroid, nebs noted that he saw his doctor yesterday who thought that lethargy may be due to the new diltiazem and stopped it for now. Diltiazem was started during recent admission by cardiology for SVT We will resume diltiazem for now monitor. Other plans as detailed by Virginia Villa PA-C
--- NOTE | 2022-07-27 16:24 | Electrocardiogram Report ---
Test Reason : Blood Pressure : / mmHG Vent. Rate : 089 BPM Atrial Rate : 089 BPM P-R Int : 132 ms QRS Dur : 110 ms QT Int : 360 ms P-R-T Axes : 075 063 057 degrees QTc Int : 438 ms Poor data quality, interpretation may be adversely affected Normal sinus rhythm Low voltage QRS Borderline ECG When compared with ECG of 11-JUL-2022 05:50, QRS duration has increased ST no longer elevated in Inferior leads ST no longer depressed in Anterolateral leads Confirmed by Carlin Rios ([id number]) on 07/27/2022 4:23:56 PM Referred By: SELF Confirmed By:Quinn Rios
[2022-07-27 16:42] LABS: iSTAT Arterial Blood Gas HCO3 44 meg/L (19-24); iSTAT Arterial Blood Gas pCO2 89 mmHg (35-46); iSTAT Arterial Blood Gas pO2 57 mmHg (80-95); iSTAT Carbon Dioxide > 40 mmol/L (24-31); iSTAT Hematocrit 37 % (42-52); iSTAT Hemoglobin 12.6 g/dl (14.0-18.0); iSTAT Potassium 4.8 mmol/L (3.3-5.0); iSTAT Sodium 136 mmol/L (135-144)
--- NOTE | 2022-07-27 17:40 | Communication Note ---
Date of Service: July 27, 2022 History and physical exam performed by me. History obtained from patient and was at bedside, notable for 67-year-old man with history of COPD on chronic 4 L of oxygen who presents with increased lethargy, somnolence and feeling unwell over the past few days. reported that patient's home NIV machine has not been working very well and he had somebody come to check it out on Saturday. Stated that patient has not been using it since. Denied any worsening cough, fevers. Reported some chest tightness earlier which is resolved. On exam, General: In no distress, on BIPAP Eyes: PERRL, conjunctivae normal, not pale, anicteric sclerae, EOM intact bilaterally ENMT: BIPAP mask on Respiratory: Normal respiratory effort, on BIPAP, globally diminished breath sounds, Cardiovascular: RRR S1 S2 Gastrointestinal (Abdomen): Abdomen is not distended, soft, non-tender to palpation, no guarding, no palpable hepatosplenomegaly, normal bowel sounds Musculoskeletal: No pedal edema Neurologic: Alert and oriented x 3, No focal weakness, sensation grossly intact Psychiatric: Euthymic affect Labs notable for hemoglobin of 11.8, bicarb of 42. Initial ABG pH of 7.2 PCO2 of more than 115 PO2 of 88. Chest x-ray did not show any acute abnormality. Acute on chronic respiratory failure with hypoxia and hypercarbia. 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 Continue BiPAP. ABG is improving with pH of 7.3, PCO2 of 89, Continue IV steroid, nebs noted that he saw his doctor yesterday who thought that lethargy may be due to the new diltiazem and stopped it for now. Diltiazem was started during recent admission by cardiology for SVT We will resume diltiazem for now monitor. Other plans as detailed by Virginia Villa PA-C
[2022-07-27] MEDS ORDERED: ALUMINUM/MAGNESIUM SUSP 30 ML UDC PO PRN (20:28)
[2022-07-27] MEDS ORDERED: GLUCAGON FOR INJ 1 MG VIAL SQ PRN (20:28)
[2022-07-27] MEDS ORDERED: POLYETHYLENE (MIRALAX) 17 GM PACK PO PRN (20:28)
[2022-07-27] MEDS ORDERED: DEXTROSE 50% 50 ML SYRINGE IV PRN (20:28)
[2022-07-27] MEDS ORDERED: GLUCOSE 10 TAB/TUBE PO PRN (20:28)
[2022-07-27] MEDS ORDERED: ONDANSETRON INJ 2 MG/ML 2 ML VIAL IV PRN (20:28)
[2022-07-27] MEDS ORDERED: GLUCOSE 40% GEL 15 GM TUBE PO PRN (20:28)
[2022-07-27] MEDS ORDERED: MAGNESIUM HYDROXIDE SUSP 30 ML UDC PO PRN (20:28)
[2022-07-27] MEDS ORDERED: CARBOHYDRATES FOR HYPOGLYCEMIA PO PRN (20:28)
[2022-07-27] MEDS ORDERED: ACETAMINOPHEN 325 MG TAB PO PRN (20:28)
[2022-07-27] MEDS ORDERED: AZITHROMYCIN 500 MG in DEXTROSE 5% 250 ML IV SCH (21:00)
[2022-07-27] MEDS: LORazepam 1 MG TAB PO SCH (21:11)
[2022-07-27] MEDS: ENOXAPARIN INJ 40 MG/0.4 ML SYR SQ SCH (21:11)
[2022-07-27] MEDS: FORMOTEROL 20 MCG/2 ML VIAL INH SCH (22:58)
[2022-07-27] MEDS: BUDESONIDE 0.5 MG/2 ML VIAL (PULMICORT) INH SCH (22:58)
[2022-07-27] MEDS: ALBUT/IPRATROP 3MG/0.5MG NEB 3 ML VIAL NEB SCH (23:13)
[2022-07-28 06:16] LABS: Hematocrit (blood only) 36.6 % (42.0-52.0); Hemoglobin 11.3 g/dl (14.0-18.0); Immature Granulocytes # (auto) 0.03 K/uL (0.01-0.20); Immature Granulocytes % (auto) 0.6 %; Lymphocytes # (auto) 0.32 K/uL (1.2-3.4); Lymphocytes % (auto) 6.3 %; Mean Corpuscular Hemoglobin 29.6 pg (25.0-34.0); Mean Corpuscular Hgb Conc 30.9 g/dL (32.0-36.0); Mean Corpuscular Volume 95.8 fL (80.0-100.0); Mean Platelet Volume 10.2 fL (9.4-12.4); Monocytes # (auto) 0.19 K/uL (0.11-0.59); Monocytes % (auto) 3.7 %; Neutrophils # (auto) 4.55 K/uL (1.40-6.50); Neutrophils % (auto) 89.4 %; Platelet Count 229 K/uL (130-400); RDW Coefficient of Variation 11.9 % (11.5-14.5); RDW Standard Deviation 41.2 fL (36.4-46.3); Red Blood Count 3.82 M/uL (4.70-6.10); White Blood Count 5.09 K/ul (4.8-10.8)
[2022-07-28] MEDS: PANTOprazole 40 MG TAB PO SCH (06:24)
[2022-07-28] MEDS: LORazepam 1 MG TAB PO SCH ×3 (06:33→20:35)
[2022-07-28] MEDS: BUDESONIDE 0.5 MG/2 ML VIAL (PULMICORT) INH SCH ×2 (07:10→19:24)
[2022-07-28] MEDS: ALBUT/IPRATROP 3MG/0.5MG NEB 3 ML VIAL NEB SCH ×4 (07:10→19:24)
[2022-07-28] MEDS: FORMOTEROL 20 MCG/2 ML VIAL INH SCH ×2 (07:10→19:24)
[2022-07-28 08:15] LABS: HCO3 ABG 46 mmol/L (19-24); Oxygen Saturation ABG 97.8 % (90-95); PCO2 ABG 89 mmHg (35-46); PO2 ABG 78 mmHg (80-95); pH ABG 7.32 (7.35-7.45)
[2022-07-28 08:24] LABS: Allen Test Pos (Pos)
[2022-07-28 08:33] LABS: Albumin Globulin Ratio 1.2 (0.9-2); Albumin Level 3.7 gm/dl (3.4-5.0); BUN Creatinine Ratio 15.1 (10-20); Bilirubin,Total 0.3 mg/dl (0.2-1.0); Calcium 9.8 mg/dl (8.5-10.1); Creatinine Clr Calc Pharmacy 86.1 ml/min; Est GFR (Non-African American) 89.7 ml/min; Globulin 3.1 gm/dl (2.5-4.0); Magnesium 2.2 mg/dl (1.7-2.4); Potassium 5.2 mmol/L (3.5-5.1); Total Protein 6.8 gm/dl (6.0-8.3)
--- NOTE | 2022-07-28 09:55 | Pulmonary Consultation ---
Date of Consultation July 28, 2022 Assessment & Plan (1) End stage COPD: (2) Chronic hypoxemic respiratory failure: (3) Acute on chronic respiratory failure with hypoxia and hypercapnia: (4) Goals of care, counseling/discussion: Plan Unfortunately his COPD is quite advanced as he has very little normal parenchymal tissue left. Would consider referral to a tertiary center for evaluation of lung transplant versus bronchoscopic lung volume reduction. The only medical therapy that I would recommend at this time would be to add azithromycin at a dose of 250 mg every Saturday, Saturday and Saturday to help reduce the amount of exacerbations. I would also encourage complete compliance with noninvasive ventilation anytime he is sleeping and even as rescue therapy during the day when he is awake. His prognosis without transplant is very poor. Unfortunately we are quite limited in what we could offer this patient. I had a lengthy discussion of goals of care with the patient. He is currently listed as conditional code which is okay for CPR, but not okay for intubation. I reiterated to him that this CODE STATUS is incongruent with resuscitation. He is agreeable to transitioning to a full code because he does endorse wanting heroic measures in the case of a cardiac or pulmonary arrest. We discussed at length the role of hospice and palliative care. At this point he notes that he wants to live at least for 2 years and participate in events with his family. I told him that realistically this may not be a goal that is achievable. I suspect that he will have a poor quality of life moving forward and that palliative care or transplant may help improve his quality of life. He is going to discuss this with his . History of Present Illness Reason for Consultation: Acute on chronic respiratory failure Attending Physician: Hubert Taylor MD History of Present Illness 67-year-old male well-known to the pulmonary service with a history of COPD, prior tobacco abuse and frequent COPD exacerbations who presented to the hospital 07/27/2022 for COPD exacerbation. He was just evaluated by my colleague as an inpatient on 07/11/2022 for similar symptoms. Patient has had questionable compliance with his trilogy device at home leading to frequent exacerbations. Blood gas on admission revealed a PCO2 greater than 115. This morning his blood gas reveals a PCO2 of 89. His normal blood gases seem to range around 55. CT chest this admission revealed severe bullous emphysema with practically no normal lung tissue left. His last PFT was 12/31/20 which revealed an FEV1 of 18% predicted. He had severe air trapping with an RV of 276%. DLCO 30%. He has roughly a [id number] smoking history. He endorses severe shortness of breath even with minimal exertion. He has a chronic cough with occasional sputum production. No fevers or chills. Appetite is poor. Symptoms slightly improved since admission. In the hospital he is currently on azithromycin, methylprednisone 40 mg twice daily, for metabolic and budesonide. Allergies Allergy/AdvReac Type Severity Reaction Status Date / Time bupropion Allergy Intermediate RASH Verified 07/27/22 15:57 pravastatin Allergy Intermediate HIVES Verified 07/27/22 15:57 Home Medications Medication Instructions Recorded Confirmed Type lorazepam 1 mg tablet 1 mg PO Q8 01/30/18 07/27/22 History Oxygen Home #1 ea 07/06/20 07/27/22 Rx lancets 30 gauge (OneTouch Delica 04/24/21 07/27/22 History Lancets) Miscellaneous Pulmonary Supply #1 ea 08/30/21 07/27/22 Rx prednisone 20 mg tablet 40 mg PO QAM PRN RESCUE KIT x5 days 06/05/22 07/27/22 History omeprazole 40 mg capsule,delayed 40 mg PO DAILYBB 07/05/22 07/27/22 History release aspirin 81 mg tablet,delayed 81 mg PO DAILY 30 days #30 tabs 07/11/22 07/27/22 Rx release budesonide 0.5 mg/2 mL suspension 0.5 mg (2 mL) inhalation BID #60 mL 07/11/22 07/27/22 Rx for nebulization formoterol fumarate 20 mcg/2 mL 2 ml inhalation BID #120 mL 07/11/22 07/27/22 Rx solution for nebulization (Perforomist) metoprolol succinate 25 mg 25 mg PO QAM 30 days #30 tabs 07/11/22 07/27/22 Rx tablet,extended release 24 hr umeclidinium 62.5 mcg/actuation 1 puff inhalation DAILY 30 days #1 07/11/22 07/27/22 Rx blister powder for inhalation device (Incruse Ellipta) albuterol sulfate 2.5 mg/3 mL 1.25 mg (1.5 mL) inhalation Q12H 07/12/22 07/27/22 Rx (0.083 %) solution for nebulization PRN bronchospasm #90 mL nebulizer accessories #1 ea 07/17/22 07/27/22 Rx nebulizer and compressor #1 ea 07/17/22 07/27/22 Rx diltiazem HCl 240 mg 240 mg PO DAILY 07/27/22 07/27/22 History capsule,extended release 24 hr venlafaxine 150 mg 300 mg PO QAM 07/27/22 07/27/22 History capsule,extended release 24 hr Patient History Medical History (Updated 07/28/22 @ 10:21 by Rivas Coon MD) Abdominal pain Acute exacerbation of chronic obstructive pulmonary disease (COPD) Acute on chronic respiratory failure with hypoxia and hypercapnia Anxiety Anxiety Blood CO2 increased Chronic dyspnea Chronic hypercapnic respiratory failure Chronic hypoxemic respiratory failure Chronic obstructive pulmonary disease WEARS O2 AT 3L CONTINUOUS AT HS 2L O2 DURING DAY PRN Chronic obstructive pulmonary disease Chronic respiratory failure COPD exacerbation Dependence on supplemental oxygen Depression DM (diabetes mellitus), type 2 with neurological complications Dyslipidemia End stage COPD Fatty liver Fatty liver GERD (gastroesophageal reflux disease) GERD without esophagitis Goals of care, counseling/discussion History of nicotine dependence Hyperlipidemia Hyperlipidemia Hypoxemia Irritable bowel disease Nocturnal hypoxemia Osteoarthritis Post traumatic stress disorder Pulmonary air trapping Pulmonary emphysema Shortness of breath Surgical History History of cardiac cath NO STENTS History of colonoscopy History of discectomy LUMBAR DISCECTOMY History of herniorrhaphy INGUINAL RT/LEFT History of tonsillectomy History of tooth extraction Family History Unknown Family history of diabetes mellitus Family hx colonic polyps Social History Smoking Status: Former smoker Second Hand Exposure: No; Hx Alcohol Use: No Hx Substance Use: No Preferred Language: Frisian Communication Ability: Effective Visual Impairment: No Limitations Roll Inspector Required: No Beliefs That Will Affect Care: None Current Living Situation: Spouse Feels Safe at Home: Yes Safety Concerns: Feels Safe At This Time Assistive Devices: CPAP, Hearing Aid - Bilateral and Oxygen - Continuous Review of Systems Review of Systems: All systems reviewed & are unremarkable except as noted in HPI & below Physical Exam Physical Exam: Constitutional: Patient appears to be of their stated age. Patient is in no apparent distress. Patient is well-developed. Eyes: Pupils are equal round and reactive to light. Conjunctivae are normal. Anicteric sclera. Ears nose, mouth and throat: Mallampati class 2. Normal posterior oropharynx. Uvula is midline. Neck: Trachea is midline. Visual inspection is normal. Respiratory: Diminished bilaterally with prolonged phase of exhalation. Cardiovascular: Regular rate and rhythm. No murmurs. No edema. Gastrointestinal: Normal bowel sounds, soft, nontender and nondistended. No hepatosplenomegaly noted. Musculoskeletal: No cyanosis. Patient is able to move all extremities. Strength is 5 out of 5 in the upper and lower extremities. Skin: No rashes, warm dry and intact. Neurologic: No obvious focal neurological deficits seen. Psychiatric: Alert and oriented x3 with a euthymic affect. Results & Data Results & Data ([facility]) Vital Signs (Past 12 Hours) Vital Signs Temp Pulse Pulse Resp BP Pulse Ox O2 Del Method 07/28/22 08:00 37 C 107 H 18 128/82 92 Nasal Cannula 07/28/22 07:10 74 18 99 Nasal Cannula 07/28/22 03:53 36.7 C 107 H 18 140/83 100 Nasal Cannula 07/27/22 22:00 102 H 07/27/22 22:15 101 H 07/27/22 23:18 36.3 C L 102 H 18 120/83 90 CPAP 07/27/22 23:00 104 H 21 92 07/27/22 22:59 104 H 21 92 BiPAP 07/27/22 21:48 Nasal Cannula O2 Flow Rate 07/28/22 08:00 4 07/28/22 07:10 6 07/28/22 03:53 6.0 07/27/22 22:00 07/27/22 22:15 07/27/22 23:18 07/27/22 23:00 3 07/27/22 22:59 3 07/27/22 21:48 4 PG Care Time/CCT Total # of Minutes Spent Total Time Spent with Patient: Total time spent is greater than 50% in coordination of care (as documented) at patient's floor/unit and/or counseling patient: Coding Level of Care Code 92664 INT INP/OBS CARE 3/75MIN Diagnoses End stage COPD J44.9 Chronic hypoxemic respiratory failure J96.11 Acute on chronic respiratory failure with hypoxia and hypercapnia J96.21; J96.22 Goals of care, counseling/discussion Z71.89
[2022-07-28] MEDS: methylPREDNISolone 40 MG in SYRINGE 0 ML IV SCH ×2 (10:16→20:31)
[2022-07-28] MEDS: METOPROLOL SUCC 25MG EXT REL TAB PO SCH (10:16)
[2022-07-28] MEDS: ASPIRIN 81 MG ECTAB PO SCH (10:16)
[2022-07-28] MEDS: VENLAFAXINE HCL XR 150 MG CAPXR PO SCH (10:16)
[2022-07-28] MEDS: dilTIAZem HCL 240 MG CAPCR PO SCH (10:16)
[2022-07-28] MEDS: UMECLIDINIUM BROMIDE 62.5MCG/BLISTER 7 PUFFS/INHALER INH SCH (10:17)
--- NOTE | 2022-07-28 13:20 | Hospitalist Progress Note ---
Date of Service July 28, 2022 Assessment & Plan (1) Acute on chronic respiratory failure with hypoxia and hypercapnia: (2) Respiratory acidosis: (3) COPD exacerbation: (4) PSVT (paroxysmal supraventricular tachycardia): Plan Per admitting service notes with addendum: This is a 67-year-old male who has a significant past medical history of chronic hypoxic and hypercarbic respiratory failure in setting of COPD, T2DM, HLD, fatty liver, GERD, BPH, normocytic anemia, depression, PTSD, history of tobacco use who presents to ED with at bedside secondary to increasing shortness of breath, lethargy and confusion worsening for several days. Acute on chronic respiratory failure with hypoxia and hypercapnia Acute respiratory acidosis COPD exacerbation admit to PCU continue bipap pulm toilet with nebs, incentive spirometry IV solumedrol IV azithromycin for copd exac will consult pulm pt reports difficulty with bipap at OP as its not working will need to discuss with pulm options prior to pt being discharged 07/28 Chest x-ray:IMPRESSION : Prominent emphysema. No definite airspace opacity to suggest aspiration/pneumonia. Currently on 4 L of oxygen nasal cannula Patient not in distress, afebrile Continue Solu-Medrol 40 mg IV twice daily, azithromycin daily, DuoNebs 4 times daily BiPAP while sleeping, emphasized importance to patient Pulmonary service consulted, appreciate recommendations Patient's would like to discuss with Dr. Coon in person tomorrow Dr. Coon made aware History of PSVT Occurred during last admission Started on diltiazem and metoprolol, continue this Anxiety, PTSD Continue venlafaxine, ativan Gerd continue PPI Hx of T2DM bsg 137 on admission last a1c 5.6 05/23/22 On IV steroids, BSG ACHS, lucency Will be ordered DVT prophylaxis: SQ Lovenox Dispo:admit to PCU PCP: Kanchan Martinez Disposition Pending plan of care discussed with patient and his Tana in detail and at length all questions answered They are understanding, agreeable, comfortable with the plan of care Admission and Anticipated Discharge Date Admission Date: July 27, 2022 Subjective Follow-up for hypercapnic respiratory failure, acute on chronic, etc. Seen resting in bed, sleeping but easily awakened On 4 L of oxygen by nasal cannula States he feels better compared to yesterday Oriented x3 Denies cough, shortness of breath, chest pain No fevers or chills No other symptoms Reevaluated in the afternoon around 3 PM with patient's Tana at the bedside She clarified that patient has not been using his trilogy machine at home because of being uncomfortable while using it Reports machine is functioning appropriately as per recent check by machine fundraising sale representative Review of Systems Review of Systems: all noted and negative except for above Physical Exam Physical Exam: General- oriented x 3, not in distress, speaks in sentences with no effort or accessory muscle use Eyes- anicteric Neck- no JVD Lungs-diminished but clear breath sounds bilaterally No wheezing Heart- normal rate, regular rhythm; no murmurs Abdomen- normal bowel sounds, nondistended, soft, nontender Extremities- no pretibial edema, no calf tenderness Neuro- alert, oriented x 3; no gross focal neurologic deficits Skin- warm & dry Results & Data Results & Data ([facility]) Vital Signs (Past 12 Hours) Vital Signs Temp Pulse Resp BP Pulse Ox O2 Del Method O2 Flow Rate 07/28/22 11:42 36.7 C 96 H 18 147/89 H 97 Nasal Cannula 3 07/28/22 11:09 100 H 16 98 Nasal Cannula 4 07/28/22 08:00 37 C 107 H 18 128/82 92 Nasal Cannula 4 07/28/22 07:10 74 18 99 Nasal Cannula 6 07/28/22 03:53 36.7 C 107 H 18 140/83 100 Nasal Cannula 6.0 all noted and reviewed including below
[2022-07-28] MEDS ORDERED: GLUCOSE 40% GEL 15 GM TUBE PO PRN (16:16)
[2022-07-28] MEDS ORDERED: GLUCAGON FOR INJ 1 MG VIAL SQ PRN (16:16)
[2022-07-28] MEDS ORDERED: DEXTROSE 50% 50 ML SYRINGE IV PRN (16:16)
[2022-07-28] MEDS ORDERED: CARBOHYDRATES FOR HYPOGLYCEMIA PO PRN (16:16)
[2022-07-28] MEDS ORDERED: GLUCOSE 10 TAB/TUBE PO PRN (16:16)
[2022-07-28] MEDS: AZITHROMYCIN 500 MG in DEXTROSE 5% 250 ML IV SCH (17:45)
[2022-07-28] MEDS: INSULIN ASPART PER UNIT SC SCH ×2 (17:47→20:33)
[2022-07-28] MEDS: ENOXAPARIN INJ 40 MG/0.4 ML SYR SQ SCH (20:31)
[2022-07-29] MEDS: LORazepam 1 MG TAB PO SCH ×3 (06:09→22:00)
[2022-07-29] MEDS: PANTOprazole 40 MG TAB PO SCH (06:09)
[2022-07-29] MEDS: BUDESONIDE 0.5 MG/2 ML VIAL (PULMICORT) INH SCH ×2 (07:05→19:40)
[2022-07-29] MEDS: ALBUT/IPRATROP 3MG/0.5MG NEB 3 ML VIAL NEB SCH ×4 (07:05→19:40)
[2022-07-29] MEDS: FORMOTEROL 20 MCG/2 ML VIAL INH SCH ×2 (07:05→19:39)
[2022-07-29] MEDS: INSULIN ASPART PER UNIT SC SCH ×4 (08:21→20:48)
[2022-07-29] MEDS: METOPROLOL SUCC 25MG EXT REL TAB PO SCH (08:22)
[2022-07-29] MEDS: methylPREDNISolone 40 MG in SYRINGE 0 ML IV SCH (08:22)
[2022-07-29] MEDS: UMECLIDINIUM BROMIDE 62.5MCG/BLISTER 7 PUFFS/INHALER INH SCH (08:22)
[2022-07-29] MEDS: dilTIAZem HCL 240 MG CAPCR PO SCH (08:22)
[2022-07-29] MEDS: ASPIRIN 81 MG ECTAB PO SCH (08:22)
[2022-07-29] MEDS: VENLAFAXINE HCL XR 150 MG CAPXR PO SCH (08:22)
--- NOTE | 2022-07-29 11:18 | Pulmonology Progress Note ---
Date of Service July 29, 2022 Assessment & Plan (1) End stage COPD: (2) Chronic hypoxemic respiratory failure: (3) Acute on chronic respiratory failure with hypoxia and hypercapnia: (4) Goals of care, counseling/discussion: Plan His COPD is quite advanced and he essentially has very minimal normal lung parenchyma left. He is not interested in an evaluation at a tertiary center for bronchoscopic lung volume reduction or transplant. Nor do I think he would be a good candidate given his deconditioned state. I had a lengthy discussion with him and his regarding home hospice care. His does not feel that he needs hospice at this time. She does feel that he needs extra help at home with bathing him and taking care of his daily needs. I reiterated to him that he would qualify for hospice given his end-stage condition which is essentially reversible. Patient has very poor compliance with his AVAPS machine. Patient's feels that the mask does not fit properly. We will have respiratory therapy come by frequently and reeducate and patient about AVAPS. We will try the patient on home AVAPS today none tonight. Obtain behavior analyst ABG tomorrow after using AVAPS at night. Palliative care consultation placed. I also discussed with the patient and his regarding his CODE STATUS. Right now he is listed as a full code and yesterday he told me that he would like abrupt measures such as CPR and intubation if he had a cardiac or pulmonary arrest. After discussion with his and the patient, they have both decided that he would want to be a DNR/DNI in the event of a cardiac arrest or respiratory arrest. He understands that his chance of recovery from such a severe illness would be very low and there is a high likelihood that this would prolong suffering; thus the decision to change his CODE STATUS to DNR/DNI which both the patient and are in agreement with. Admission and Anticipated Discharge Date Admission Date: July 27, 2022 Subjective Patient was seen and examined. His is also at bedside. He denies any shortness of breath at rest. He does have shortness of breath and on exertion. He is currently on 3 L saturating in the high 90s. had many questions regarding his AVAPS machine and assistance with home health. Review of Systems Review of Systems: All systems reviewed & are unremarkable except as noted in HPI & below Physical Exam Physical Exam: Constitutional: Patient appears to be of their stated age. Patient is in no apparent distress. Patient is well-developed. Eyes: Pupils are equal round and reactive to light. Conjunctivae are normal. Anicteric sclera. Ears nose, mouth and throat: Mallampati class 2. Normal posterior oropharynx. Uvula is midline. Neck: Trachea is midline. Visual inspection is normal. Respiratory: Diminished bilaterally with prolonged phase of exhalation. Cardiovascular: Regular rate and rhythm. No murmurs. No edema. Gastrointestinal: Normal bowel sounds, soft, nontender and nondistended. No hepatosplenomegaly noted. Musculoskeletal: No cyanosis. Patient is able to move all extremities. Strength is 5 out of 5 in the upper and lower extremities. Skin: No rashes, warm dry and intact. Neurologic: No obvious focal neurological deficits seen. Psychiatric: Alert and oriented x3 with a euthymic affect. Results & Data Results & Data ([facility]) Vital Signs (Past 12 Hours) Vital Signs Temp Pulse Pulse Resp BP Pulse Ox O2 Del Method 07/29/22 11:10 86 16 97 Nasal Cannula 07/29/22 07:38 36.6 C 84 18 115/80 98 Nasal Cannula 07/29/22 07:06 79 18 96 Nasal Cannula 07/29/22 03:58 36.7 C 80 18 146/83 H 99 Nasal Cannula 07/28/22 23:13 36.5 C 91 H 20 145/81 H 93 CPAP 07/28/22 23:46 92 H O2 Flow Rate 07/29/22 11:10 3 07/29/22 07:38 3 07/29/22 07:06 3 07/29/22 03:58 3.0 07/28/22 23:13 07/28/22 23:46 PG Care Time/CCT Total # of Minutes Spent Total Time Spent with Patient: Total time spent is greater than 50% in coordination of care (as documented) at patient's floor/unit and/or counseling patient: Coding Level of Care Code 91264 SUB INP/OBS CARE 3/50MIN Diagnoses End stage COPD J44.9 Chronic hypoxemic respiratory failure J96.11 Acute on chronic respiratory failure with hypoxia and hypercapnia J96.21; J96.22 Goals of care, counseling/discussion Z71.89
[2022-07-29] MEDS: AZITHROMYCIN 500 MG in DEXTROSE 5% 250 ML IV SCH (17:49)
--- NOTE | 2022-07-29 18:20 | Hospitalist Progress Note ---
Date of Service July 29, 2022 Assessment & Plan (1) Acute on chronic respiratory failure with hypoxia and hypercapnia: (2) Respiratory acidosis: (3) COPD exacerbation: (4) PSVT (paroxysmal supraventricular tachycardia): Plan Per admitting service notes with addendum: This is a 67-year-old male who has a significant past medical history of chronic hypoxic and hypercarbic respiratory failure in setting of COPD, T2DM, HLD, fatty liver, GERD, BPH, normocytic anemia, depression, PTSD, history of tobacco use who presents to ED with at bedside secondary to increasing shortness of breath, lethargy and confusion worsening for several days. Acute on chronic respiratory failure with hypoxia and hypercapnia Acute respiratory acidosis COPD exacerbation admit to PCU continue bipap pulm toilet with nebs, incentive spirometry IV solumedrol IV azithromycin for copd exac will consult pulm pt reports difficulty with bipap at OP as its not working will need to discuss with pulm options prior to pt being discharged 07/28 Chest x-ray:IMPRESSION : Prominent emphysema. No definite airspace opacity to suggest aspiration/pneumonia. Currently on 4 L of oxygen nasal cannula Patient not in distress, afebrile Continue Solu-Medrol 40 mg IV twice daily, azithromycin daily, DuoNebs 4 times daily BiPAP while sleeping, emphasized importance to patient Pulmonary service consulted, appreciate recommendations Patient's would like to discuss with Dr. Coon in person tomorrow Dr. Coon made aware 07/29 DC Solu-Medrol to prevent delirium Dr. Coon discussed plan of care with patient and his Monitor while patient using AVAPS device and patient ABG tomorrow morning Palliative care service consulted History of PSVT Occurred during last admission Started on diltiazem and metoprolol, continue this Anxiety, PTSD Continue venlafaxine, ativan Gerd continue PPI Hx of T2DM bsg 137 on admission last a1c 5.6 05/23/22 BSG ACHS, lucency DVT prophylaxis: SQ Lovenox Dispo:admit to PCU PCP: Kanchan Martinez Disposition Pending plan of care discussed with patient and his Tana in detail and at length all questions answered They are understanding, agreeable, comfortable with the plan of care Admission and Anticipated Discharge Date Admission Date: July 27, 2022 Subjective Follow-up for COPD, acute on chronic hypoxic and hypercapnic respiratory fa ilure, etc. Seen resting in bed, on 3 L nasal cannula Patient's monitor the bedside Patient was disoriented this morning upon waking up but that has resolved States breathing is fine Able to tolerate CPAP overnight for 6 hours Denies shortness of breath, cough, chest pain No fevers or chills No other symptoms Review of Systems Review of Systems: all noted and negative except for above Physical Exam Physical Exam: General- oriented x 3, not in distress, speaks in sentences with no effort or accessory muscle use Eyes- anicteric Neck- no JVD Lungs-diminished but clear breath sounds bilaterally Heart- normal rate, regular rhythm; no murmurs Abdomen- normal bowel sounds, nondistended, soft, nontender Extremities- no pretibial edema, no calf tenderness Neuro- alert, oriented x 3; no gross focal neurologic deficits Skin- warm & dry Results & Data Results & Data ([facility]) Vital Signs (Past 12 Hours) Vital Signs Temp Pulse Pulse Resp BP Pulse Ox O2 Del Method 07/29/22 15:42 36.6 C 82 20 124/78 99 BiPAP 07/29/22 15:21 07/29/22 15:21 78 18 97 BiPAP 07/29/22 15:12 78 07/29/22 15:12 Nasal Cannula 07/29/22 11:34 36.6 C 78 18 135/82 98 Nasal Cannula 07/29/22 11:10 86 16 97 Nasal Cannula 07/29/22 07:38 36.6 C 84 18 115/80 98 Nasal Cannula 07/29/22 07:06 79 18 96 Nasal Cannula O2 Flow Rate FiO2 07/29/22 15:42 07/29/22 15:21 3 07/29/22 15:21 3 07/29/22 15:12 07/29/22 15:12 4 07/29/22 11:34 3 07/29/22 11:10 3 07/29/22 07:38 3 07/29/22 07:06 3 all noted and reviewed including below
[2022-07-29] MEDS: ENOXAPARIN INJ 40 MG/0.4 ML SYR SQ SCH (20:48)
[2022-07-30] MEDS: PANTOprazole 40 MG TAB PO SCH (06:02)
[2022-07-30] MEDS: LORazepam 1 MG TAB PO SCH ×3 (06:02→20:37)
[2022-07-30 06:20] LABS: HCO3 ABG 44 mmol/L (19-24); Oxygen Saturation ABG 97.1 % (90-95); PCO2 ABG 64 mmHg (35-46); PO2 ABG 84 mmHg (80-95); pH ABG 7.44 (7.35-7.45)
[2022-07-30 06:31] LABS: Allen Test Pos (Pos)
[2022-07-30] MEDS: BUDESONIDE 0.5 MG/2 ML VIAL (PULMICORT) INH SCH ×2 (07:19→19:33)
[2022-07-30] MEDS: ALBUT/IPRATROP 3MG/0.5MG NEB 3 ML VIAL NEB SCH ×4 (07:19→20:22)
[2022-07-30] MEDS: FORMOTEROL 20 MCG/2 ML VIAL INH SCH ×2 (07:19→19:33)
[2022-07-30] MEDS: INSULIN ASPART PER UNIT SC SCH ×4 (08:48→20:37)
[2022-07-30] MEDS: UMECLIDINIUM BROMIDE 62.5MCG/BLISTER 7 PUFFS/INHALER INH SCH (08:58)
[2022-07-30] MEDS: ASPIRIN 81 MG ECTAB PO SCH (08:59)
[2022-07-30] MEDS: dilTIAZem HCL 240 MG CAPCR PO SCH (08:59)
[2022-07-30] MEDS: VENLAFAXINE HCL XR 150 MG CAPXR PO SCH (08:59)
[2022-07-30] MEDS: METOPROLOL SUCC 25MG EXT REL TAB PO SCH (08:59)
--- NOTE | 2022-07-30 09:11 | Pulmonology Progress Note ---
Date of Service July 30, 2022 Assessment & Plan (1) End stage COPD: Plan: IMPRESSION: 67-year-old male with end-stage COPD with acute on chronic hypoxic respiratory failure with hypercapnia. 1. End-stage COPD - * Continue strict home use of patient's home trilogy device. * Patient did well wearing his trilogy overnight and reports feeling much better today. * Per prior conversations with attending, patient is not interested in evaluation for bronchoscopic lung volume reduction or lung transplantation. * Patient has declined pulmonary rehab as well. * Continue home inhalers and nebulizers as you have been. * Agree with discussions of goals of care. Patient is hopeful to be discharged home in the next 24 to 48 hours. 2. Acute on chronic hypoxic respiratory failure with hypercapnia - * Likely related to poor compliance with the patient's home trilogy system. * Continue to encourage strict utilization of trilogy when sleeping. * This was reinforced with the patient at bedside who acknowledges understanding. Thank you for allowing us to participate in the care of this patient. We will continue to follow with patient while he remains inpatient. (2) Chronic hypoxemic respiratory failure: (3) Acute on chronic respiratory failure with hypoxia and hypercapnia: Admission and Anticipated Discharge Date Admission Date: July 27, 2022 Supervising Physician Co-Signing Physician Notes Patient seen and examined. EMR reviewed. Discussed with off going roof technician as well as with the pulmonary physicians public services assistant. Agree with assessment plan as noted. Patient states that he feels better today. He attributes his improvement to being able to use his noninvasive positive pressure ventilation at night. He has his home unit here and used it without much difficulty. He states that his difficulty in using it at home largely centers on his unwillingness to keep the device in place. He is motivated to continue to use it for now. The patient is quite sedentary at home and walks less than 100 feet. He feels like he is approaching his baseline. Advised him to increase his activity level and spend more time out of bed to chair. If he does okay in the next 24 hours she can likely be dismissed from the hospital and follow-up in the outpatient setting with Dr. Coon. Subjective Patient was seen and evaluated by myself and Dr. Avery at bedside. He reports that he is breathing better and feels better this morning after utilizing his home machine. He admits that he does not use the machine as much at home as he probably should. He reports that his cough is about at his baseline. He reports significant dyspnea on exertion which he experiences at home. He is not interested in pulmonary rehab. Review of Systems Review of Systems: A complete 6 point review of systems was reviewed with the patient with pertinent positives and negatives as per history of present illness. All else were negative. Physical Exam Physical Exam: VITAL SIGNS - Vital signs and nursing notes were reviewed. GENERAL - 67-year-old male appearing his stated age who is in no acute distress. Communicates well with provider and answers questions appropriately. NECK - Neck with FROM. LUNGS - Decreased air entry throughout all lung dal[place]. CARDIAC - RRR with S1/S2. No murmur, rubs, or gallops appreciated. ABDOMEN - Abdominal contour flat without pulsations or visible masses. BS normoactive all four quadrants. No tenderness, palpable masses, hepatosplenomegaly, or ascites noted. PSYCH - A&Ox3 and cooperates fully with examiner. Pt is very pleasant and interacts well with examiner. Results & Data Results & Data ([facility]) Vital Signs (Past 12 Hours) Vital Signs Temp Pulse Pulse Pulse Resp BP Pulse Ox 07/30/22 08:44 34.7 C L 87 20 177/77 H 94 07/30/22 07:20 79 18 98 07/30/22 03:09 36.4 C L 77 18 128/78 99 07/29/22 23:34 91 H 07/29/22 23:01 36.6 C 76 20 126/83 95 O2 Del Method O2 Flow Rate 07/30/22 08:44 Nasal Cannula 2.5 07/30/22 07:20 Nasal Cannula 3 07/30/22 03:09 BiPAP 07/29/22 23:34 07/29/22 23:01 BiPAP PG Care Time/CCT Total # of Minutes Spent Total Time Spent with Patient: Total time spent is greater than 50% in coordination of care (as documented) at patient's floor/unit and/or counseling patient: Coding Level of Care Code 69258 SUB INP/OBS CARE 2/35MIN Diagnoses End stage COPD J44.9 Chronic hypoxemic respiratory failure J96.11 Acute on chronic respiratory failure with hypoxia and hypercapnia J96.21; J96.22
--- NOTE | 2022-07-30 12:29 | Palliative Care Consultation ---
Date of Consultation July 30, 2022 Assessment & Plan (1) Dyspnea: with ES COPD Chronic hypoxic hypercapnic respiratory failure Improved with bipap at HS and naps On continuous O2 Bipap machine at home checked and working properly He and his report that he will be more compliant with bipap at home (2) Anxiety: with PTSD On routine lorazepam and venlafaxine (3) Palliative care encounter: I met with Mr. Jacinto and his . I also spoke with him about goals of care on previous admission. He had initially told me that he didn't need or want hospice and that his wish would be to return to the hospital if needed for respiratory distress. After speaking with Dr. Coon, he understands that his condition is end stage and that return to the hospital is not likely to help him improve. He tells me that his wish is to be at home until his dying time and focus on living well at home. His tells me that they are going to be more diligent with bipap when he returns home. Even with bipap, they understand that his condition will likely continue to decline. She told me that when he is comatose, she would like to have hospice care. We discussed hospice benefit and services provided. Given the fact that Mr. Jacinto wants to remain at home, it would be in their best interest to have hospice following at discharge so that they will have someone to call if he has difficulty with his breathing or mental status. They are agreeable to that. Plan will be for discharge home with [facility] hospice following per our discussion. Also discussed with case management. History of Present Illness Reason for Consultation: goals of care Requesting Physician: Dr. Coon Attending Physician: Hubert Taylor MD History of Present Illness 67 yo gentleman with end stage COPD admitted with acute on chronic hypoxic, hypercapnic respiratory failure. He is on bipap at home but has not been consistently compliant and reports that his bipap machine has not been working properly. He has comorbid diabetes with fatty liver. He also has anxiety with PTSD and is on venlafaxine and lorazepam at home. He was initially lethargic on admission but mental status has improved with regular use of bipap. He is awake, alert and oriented. He does not complain of pain or dyspnea at rest. Allergies Allergy/AdvReac Type Severity Reaction Status Date / Time bupropion Allergy Intermediate RASH Verified 07/27/22 15:57 pravastatin Allergy Intermediate HIVES Verified 07/27/22 15:57 Home Medications Medication Instructions Recorded Confirmed Type lorazepam 1 mg tablet 1 mg PO Q8 01/30/18 07/27/22 History Oxygen Home #1 ea 07/06/20 07/27/22 Rx lancets 30 gauge (NatalieTouch Delica 04/24/21 07/27/22 History Lancets) Miscellaneous Pulmonary Supply #1 ea 08/30/21 07/27/22 Rx prednisone 20 mg tablet 40 mg PO QAM PRN RESCUE KIT x5 days 06/05/22 07/27/22 History omeprazole 40 mg capsule,delayed 40 mg PO DAILYBB 07/05/22 07/27/22 History release aspirin 81 mg tablet,delayed 81 mg PO DAILY 30 days #30 tabs 07/11/22 07/27/22 Rx release budesonide 0.5 mg/2 mL suspension 0.5 mg (2 mL) inhalation BID #60 mL 07/11/22 07/27/22 Rx for nebulization formoterol fumarate 20 mcg/2 mL 2 ml inhalation BID #120 mL 07/11/22 07/27/22 Rx solution for nebulization (Perforomist) metoprolol succinate 25 mg 25 mg PO QAM 30 days #30 tabs 07/11/22 07/27/22 Rx tablet,extended release 24 hr umeclidinium 62.5 mcg/actuation 1 puff inhalation DAILY 30 days #1 07/11/22 07/27/22 Rx blister powder for inhalation device (Incruse Ellipta) albuterol sulfate 2.5 mg/3 mL 1.25 mg (1.5 mL) inhalation Q12H 07/12/22 07/27/22 Rx (0.083 %) solution for nebulization PRN bronchospasm #90 mL nebulizer accessories #1 ea 07/17/22 07/27/22 Rx nebulizer and compressor #1 ea 07/17/22 07/27/22 Rx diltiazem HCl 240 mg 240 mg PO DAILY 07/27/22 07/27/22 History capsule,extended release 24 hr venlafaxine 150 mg 300 mg PO QAM 07/27/22 07/27/22 History capsule,extended release 24 hr Patient History Medical History Abdominal pain Acute exacerbation of chronic obstructive pulmonary disease (COPD) Acute on chronic respiratory failure with hypoxia and hypercapnia Anxiety Anxiety Blood CO2 increased Chronic dyspnea Chronic hypercapnic respiratory failure Chronic hypoxemic respiratory failure Chronic obstructive pulmonary disease WEARS O2 AT 3L CONTINUOUS AT HS 2L O2 DURING DAY PRN Chronic obstructive pulmonary disease Chronic respiratory failure COPD exacerbation Dependence on supplemental oxygen Depression DM (diabetes mellitus), type 2 with neurological complications Dyslipidemia End stage COPD Fatty liver Fatty liver GERD (gastroesophageal reflux disease) GERD without esophagitis Goals of care, counseling/discussion History of nicotine dependence Hyperlipidemia Hyperlipidemia Hypoxemia Irritable bowel disease Nocturnal hypoxemia Osteoarthritis Post traumatic stress disorder Pulmonary air trapping Pulmonary emphysema Shortness of breath Surgical History History of cardiac cath NO STENTS History of colonoscopy History of discectomy LUMBAR DISCECTOMY History of herniorrhaphy INGUINAL RT/LEFT History of tonsillectomy History of tooth extraction Family History Unknown Family history of diabetes mellitus Family hx colonic polyps Social History Smoking Status: Former smoker Second Hand Exposure: No; Hx Alcohol Use: No Hx Substance Use: No Preferred Language: Greek Communication Ability: Effective Visual Impairment: No Limitations Automatic Edger Required: No Beliefs That Will Affect Care: None Current Living Situation: Spouse Feels Safe at Home: Yes Safety Concerns: Feels Safe At This Time Assistive Devices: BiPap and Oxygen - Continuous Review of Systems Review of Systems: ESAS Pain 0/3 Dyspnea 1/3 Nausea 0/3 Anxiety 1/3 Drowsiness 0/3 Physical Exam Constitutional: no acute distress Respiratory: normal respiratory effort; no labored breathing Cardiovascular: Rate/Rhythm: regular rate and regular rhythm Neurologic: Speech / Cognition: normal cognition Psychiatric: Orientation: alert and oriented x 3 Affect: euthymic affect Results & Data ([facility]) Vital Signs (Past 12 Hours) Vital Signs Temp Pulse Pulse Resp BP Pulse Ox O2 Del Method 07/30/22 12:06 97.3 F L 90 20 148/83 H 99 Nasal Cannula 07/30/22 11:49 82 18 99 Nasal Cannula 07/30/22 09:10 Nasal Cannula 07/30/22 08:44 94.5 F L 87 20 177/77 H 94 Nasal Cannula 07/30/22 07:20 79 18 98 Nasal Cannula 07/30/22 03:09 97.5 F L 77 18 128/78 99 BiPAP O2 Flow Rate 07/30/22 12:06 2 07/30/22 11:49 3 07/30/22 09:10 2 07/30/22 08:44 2.5 07/30/22 07:20 3 07/30/22 03:09 PG Care Time/CCT Total # of Minutes Spent Total Time Spent: 60 Total Time Spent with Patient: Total time spent is greater than 50% in coordination of care (as documented) at patient's floor/unit and/or counseling patient:[id number] goals of care, prognosis, hospice, patient and family education and support Coding Level of Care Code 51759 INT INP/OBS CARE 2/55MIN Diagnoses Dyspnea R06.00 Anxiety F41.9 Palliative care encounter Z51.5
--- NOTE | 2022-07-30 15:03 | Hospitalist Progress Note ---
Date of Service July 30, 2022 Assessment & Plan (1) Acute on chronic respiratory failure with hypoxia and hypercapnia: (2) Respiratory acidosis: (3) COPD exacerbation: (4) PSVT (paroxysmal supraventricular tachycardia): Plan Per admitting service notes with addendum: This is a 67-year-old male who has a significant past medical history of chronic hypoxic and hypercarbic respiratory failure in setting of COPD, T2DM, HLD, fatty liver, GERD, BPH, normocytic anemia, depression, PTSD, history of tobacco use who presents to ED with at bedside secondary to increasing shortness of breath, lethargy and confusion worsening for several days. Acute on chronic respiratory failure with hypoxia and hypercapnia Acute respiratory acidosis COPD exacerbation admit to PCU continue bipap pulm toilet with nebs, incentive spirometry IV solumedrol IV azithromycin for copd exac will consult pulm pt reports difficulty with bipap at OP as its not working will need to discuss with pulm options prior to pt being discharged 07/28 Chest x-ray:IMPRESSION : Prominent emphysema. No definite airspace opacity to suggest aspiration/pneumonia. Currently on 4 L of oxygen nasal cannula Patient not in distress, afebrile Continue Solu-Medrol 40 mg IV twice daily, azithromycin daily, DuoNebs 4 times daily BiPAP while sleeping, emphasized importance to patient Pulmonary service consulted, appreciate recommendations Patient's would like to discuss with Dr. Coon in person tomorrow Dr. Coon made aware 07/29 DC Solu-Medrol to prevent delirium Dr. Coon discussed plan of care with patient and his Monitor while patient using AVAPS device and patient ABG tomorrow morning Palliative care service consulted 07/30 Tolerated on noninvasive machine overnight ABG much improved this morning pH 7.4 Patient and his has decided to transition to home with hospice upon discharge Anticipate discharge home tomorrow Discussed with casework specialist History of PSVT Occurred during last admission Started on diltiazem and metoprolol, continue this Anxiety, PTSD Continue venlafaxine, ativan Gerd continue PPI Hx of T2DM bsg 137 on admission last a1c 5.6 05/23/22 BSG ACHS, lucency DVT prophylaxis: SQ Lovenox Dispo:admit to PCU PCP: Kanchan Martinez Disposition Pending plan of care discussed with patient's Tana in detail and at length all questions answered she is understanding, agreeable, comfortable with the plan of care Admission and Anticipated Discharge Date Admission Date: July 27, 2022 Subjective ff up for acute on chronic hypoxic and hypercapnic respiratory failure, etc. Seen with patient's at the bedside finding Patient is sleeping with noninvasive ventilator in place Tolerated machine well at night Patient was somewhat disoriented this morning, but easily reoriented by family member Had a good breakfast No problems with breathing as per No other symptoms Patient and his has decided to transition to home with hospice upon discharge Review of Systems Review of Systems: all noted and negative except for above Physical Exam Physical Exam: General- oriented x 3, not in distress, speaks in sentences with no effort or accessory muscle use Eyes- anicteric Neck- no JVD Lungs-diminished breath sounds, but clear bilaterally No crackles, no wheezing Heart- normal rate, regular rhythm; no murmurs Abdomen- normal bowel sounds, nondistended, soft, no tenderness Extremities- no pretibial edema, no calf tenderness Neuro- alert, oriented x 3; no gross focal neurologic deficits Skin- warm & dry Results & Data Results & Data ([facility]) Vital Signs (Past 12 Hours) Vital Signs Temp Pulse Pulse Resp BP Pulse Ox Pulse Ox 07/30/22 14:58 74 18 97 07/30/22 13:32 91 07/30/22 12:06 36.3 C L 90 20 148/83 H 99 07/30/22 11:49 82 18 99 07/30/22 09:10 07/30/22 08:44 34.7 C L 87 20 177/77 H 94 07/30/22 07:20 79 18 98 07/30/22 03:09 36.4 C L 77 18 128/78 99 O2 Del Method O2 Del Method O2 Flow Rate 07/30/22 14:58 Nasal Cannula 3 07/30/22 13:32 BiPAP 07/30/22 12:06 Nasal Cannula 2 07/30/22 11:49 Nasal Cannula 3 07/30/22 09:10 Nasal Cannula 2 07/30/22 08:44 Nasal Cannula 2.5 07/30/22 07:20 Nasal Cannula 3 07/30/22 03:09 BiPAP all noted and reviewed including below
[2022-07-30] MEDS: ENOXAPARIN INJ 40 MG/0.4 ML SYR SQ SCH (20:37)
[2022-07-31] MEDS: LORazepam 1 MG TAB PO SCH ×2 (05:33→14:26)
[2022-07-31] MEDS: PANTOprazole 40 MG TAB PO SCH (05:33)
[2022-07-31] MEDS: FORMOTEROL 20 MCG/2 ML VIAL INH SCH (07:53)
[2022-07-31] MEDS: BUDESONIDE 0.5 MG/2 ML VIAL (PULMICORT) INH SCH (07:53)
[2022-07-31] MEDS: ALBUT/IPRATROP 3MG/0.5MG NEB 3 ML VIAL NEB SCH ×2 (07:54→11:32)
[2022-07-31] MEDS: INSULIN ASPART PER UNIT SC SCH ×2 (08:15→13:53)
[2022-07-31] MEDS: UMECLIDINIUM BROMIDE 62.5MCG/BLISTER 7 PUFFS/INHALER INH SCH (09:34)
[2022-07-31] MEDS: VENLAFAXINE HCL XR 150 MG CAPXR PO SCH (09:34)
[2022-07-31] MEDS: METOPROLOL SUCC 25MG EXT REL TAB PO SCH (09:34)
[2022-07-31] MEDS: ASPIRIN 81 MG ECTAB PO SCH (09:34)
[2022-07-31] MEDS: dilTIAZem HCL 240 MG CAPCR PO SCH (09:34)
--- NOTE | 2022-07-31 09:54 | Palliative Care Progress Note ---
Date of Service July 31, 2022 Assessment & Plan (1) Anxiety: Plan: With PTSD Continue lorazepam and venlafaxine We discussed his worries and concerns today. He is worried about dying and wants to spend as much time as possible with his family. He also talks about unfinished business that he needs to attend to with is will and other arrangements. (2) Dyspnea: Plan: With ES COPD Denies currently. Tolerating bipap in hospital. (3) Palliative care encounter: Plan: Plan is for him to return home with hospice care to follow later today. We discussed his concerns about dying and the things that are most important to him at this time. We discussed having the opportunity to say the things that are important and mend relationships that are important. We also discussed calling hospice nurse if he has problems at home, which is new paradigm from usual plan to call 911. This will help ensure that he is able to remain at home and enjoy time with his family. Admission and Anticipated Discharge Date Admission Date: July 27, 2022 Subjective Awake. Denies pain or dyspnea. Reports using bipap for 7-8 hours last night and tolerated well. Review of Systems Review of Systems: ESAS Pain 0/3 Dyspnea 0/3 Nausea 0/3 Drowsiness 0/3 Anxiety 1/3 Physical Exam Constitutional: no acute distress ENMT: Mouth: oral mucous membranes not dry Respiratory: normal respiratory effort; no labored breathing Cardiovascular: Rate/Rhythm: regular rate and regular rhythm Neurologic: Speech / Cognition: normal cognition Results & Data ([facility]) Vital Signs (Past 12 Hours) Vital Signs Temp Pulse Pulse Pulse Resp BP Pulse Ox 07/31/22 07:55 79 18 96 07/31/22 07:42 97.7 F 83 20 111/71 95 07/31/22 03:42 97.9 F 78 18 131/85 94 07/30/22 23:34 97.9 F 76 18 114/73 94 07/30/22 22:02 76 O2 Del Method O2 Flow Rate 07/31/22 07:55 Nasal Cannula 2 07/31/22 07:42 Nasal Cannula 2 07/31/22 03:42 BiPAP 07/30/22 23:34 BiPAP 07/30/22 22:02 PG Care Time/CCT Total # of Minutes Spent Total Time Spent: 38 Total Time Spent with Patient: Total time spent is greater than 50% in coordination of care (as documented) at patient's floor/unit and/or counseling patient: [id number] Symptom management, hospice, patient education and support Coding Level of Care Code 22687 SUB INP/OBS CARE MIN Diagnoses Anxiety F41.9 Dyspnea R06.00 Palliative care encounter Z51.5
--- NOTE | 2022-07-31 11:20 | Hospitalist Progress Note ---
Date of Service July 31, 2022 Assessment & Plan (1) Acute on chronic respiratory failure with hypoxia and hypercapnia: (2) Respiratory acidosis: (3) COPD exacerbation: (4) PSVT (paroxysmal supraventricular tachycardia): Plan Per admitting service notes with addendum: This is a 67-year-old male who has a significant past medical history of chronic hypoxic and hypercarbic respiratory failure in setting of COPD, T2DM, HLD, fatty liver, GERD, BPH, normocytic anemia, depression, PTSD, history of tobacco use who presents to ED with at bedside secondary to increasing shortness of breath, lethargy and confusion worsening for several days. Acute on chronic respiratory failure with hypoxia and hypercapnia Acute respiratory acidosis COPD exacerbation admit to PCU continue bipap pulm toilet with nebs, incentive spirometry IV solumedrol IV azithromycin for copd exac will consult pulm pt reports difficulty with bipap at OP as its not working will need to discuss with pulm options prior to pt being discharged 07/28 Chest x-ray:IMPRESSION : Prominent emphysema. No definite airspace opacity to suggest aspiration/pneumonia. Currently on 4 L of oxygen nasal cannula Patient not in distress, afebrile Continue Solu-Medrol 40 mg IV twice daily, azithromycin daily, DuoNebs 4 times daily BiPAP while sleeping, emphasized importance to patient Pulmonary service consulted, appreciate recommendations Patient's would like to discuss with Dr. Coon in person tomorrow Dr. Coon made aware 07/29 DC Solu-Medrol to prevent delirium Dr. Coon discussed plan of care with patient and his Monitor while patient using AVAPS device and patient ABG tomorrow morning Palliative care service consulted 07/30 Tolerated on noninvasive machine overnight ABG much improved this morning pH 7.4 Patient and his has decided to transition to home with hospice upon discharge Anticipate discharge home tomorrow Discussed with rehabilitation case coordinator 07/31 Remains stable Tolerating noninvasive ventilator machine since yesterday Patient to transition to home with hospice today Arrangements made by rehabilitation case coordinator History of PSVT Occurred during last admission Continue with diltiazem and metoprolol Anxiety, PTSD Continue venlafaxine, ativan Gerd continue PPI Hx of T2DM bsg 137 on admission last a1c 5.6 05/23/22 BSG ACHS, while admitted DVT prophylaxis: SQ Lovenox Dispo:admit to PCU PCP: Kanchan Martinez Disposition Pending plan of care discussed with patient's Tana in detail and at length all questions answered she is understanding, agreeable, comfortable with the plan of care Admission and Anticipated Discharge Date Admission Date: July 27, 2022 Subjective Follow-up for acute on chronic hypercapnic, hypoxic respiratory failure, end- stage COPD, etc. Patient seen sitting up at the edge of the bed, sitting up straight, having his breakfast, on 2 L of oxygen via nasal cannula In good spirits Comfortable States he feels better overall States he had a good night sleep, has been tolerating his own noninvasive ventilation machine since yesterday Denies cough, chest pain, shortness of breath, fevers or chills Appetite is good No other symptoms States he is okay for discharge today Review of Systems Review of Systems: all noted and negative except for above Physical Exam Physical Exam: General- oriented x 3, not in distress, speaks in sentences with no effort or accessory muscle use Eyes- anicteric Neck- no JVD Lungs-diminished but clear breath sounds bilaterally, no crackles or wheezing Heart- normal rate, regular rhythm; no murmurs Abdomen- normal bowel sounds, nondistended, soft, nontender Extremities- no pretibial edema, no calf tenderness Neuro- alert, oriented x 3; no gross focal neurologic deficits Skin- warm & dry Results & Data Results & Data ([facility]) Vital Signs (Past 12 Hours) Vital Signs Temp Pulse Pulse Pulse Resp BP Pulse Ox 07/31/22 10:36 79 07/31/22 07:55 79 18 96 07/31/22 07:42 36.5 C 83 20 111/71 95 07/31/22 03:42 36.6 C 78 18 131/85 94 07/30/22 23:34 36.6 C 76 18 114/73 94 O2 Del Method O2 Flow Rate 07/31/22 10:36 07/31/22 07:55 Nasal Cannula 2 07/31/22 07:42 Nasal Cannula 2 07/31/22 03:42 BiPAP 07/30/22 23:34 BiPAP all noted and reviewed including below
--- NOTE | 2022-07-31 12:51 | Pulmonology Progress Note ---
Date of Service July 31, 2022 Assessment & Plan (1) End stage COPD: Plan: IMPRESSION: 67-year-old male with end-stage COPD with acute on chronic hypoxic respiratory failure with hypercapnia. 1. End-stage COPD - * Continue strict home use of patient's home trilogy device at home. * Will be going home on hospice care which should provide a great benefit for the patient and his . * Patient has declined pulmonary rehab as well. * Can continue his home pulmonary treatments as before. * He can follow up with our clinic as scheduled. 2. Acute on chronic hypoxic respiratory failure with hypercapnia - * Likely related to poor compliance with the patient's home trilogy system. * Continue to encourage strict utilization of trilogy when sleeping. * This was reinforced with the patient at bedside who acknowledges understanding. * Wore his mask for 7-8 hours last night and reports feeling much better this morning. Thank you for allowing us to participate in the care of this patient. We will continue to follow with patient while he remains inpatient. (2) Chronic hypoxemic respiratory failure: (3) Acute on chronic respiratory failure with hypoxia and hypercapnia: Admission and Anticipated Discharge Date Admission Date: July 27, 2022 Supervising Physician Co-Signing Physician Notes Patient seen and examined. Agree with assessment plan as noted. The patient states he feels better. He is preparing to go home scheduled with his outpatient pulmonary provider within the next week. Continue to use noninvasive positive pressure ventilation at night. Depending on clinical response, transition to full palliative care may be appropriate. Pulmonary will sign off. Feel free to contact us with questions or concerns Subjective Patient seen and evaluated bedside today. He reports that he wore his trilogy for 7 or 8 hours last night. He reports feeling refreshed this morning and admits that he feels much more awake and his breathing is improved when he wears his mask. Patient otherwise feels well and is hoping to be discharged home today. Review of Systems Review of Systems: A complete 6 point review of systems was reviewed with the patient with pertinent positives and negatives as per history of present illness. All else were negative. Physical Exam Physical Exam: VITAL SIGNS - Vital signs and nursing notes were reviewed. GENERAL - 67-year-old male appearing his stated age who is in no acute distress. Communicates well with provider and answers questions appropriately. NECK - Neck with FROM. LUNGS - Decreased air entry throughout all lung [place]. CARDIAC - RRR with S1/S2. No murmur, rubs, or gallops appreciated. PSYCH - A&Ox3 and cooperates fully with examiner. Pt is very pleasant and interacts well with examiner. Results & Data Results & Data ([facility]) Vital Signs (Past 12 Hours) Vital Signs Temp Pulse Pulse Pulse Resp BP Pulse Ox 07/31/22 11:32 88 18 98 07/31/22 11:24 36.6 C 83 20 120/79 100 07/31/22 10:36 79 07/31/22 07:55 79 18 96 07/31/22 07:42 36.5 C 83 20 111/71 95 07/31/22 03:42 36.6 C 78 18 131/85 94 O2 Del Method O2 Flow Rate 07/31/22 11:32 Nasal Cannula 2.5 07/31/22 11:24 Nasal Cannula 2.5 07/31/22 10:36 07/31/22 07:55 Nasal Cannula 2 07/31/22 07:42 Nasal Cannula 2 07/31/22 03:42 BiPAP PG Care Time/CCT Total # of Minutes Spent Total Time Spent with Patient: Total time spent is greater than 50% in coordination of care (as documented) at patient's floor/unit and/or counseling patient: Coding Level of Care Code 65897 SUB INP/OBS CARE 2/35MIN Diagnoses End stage COPD J44.9 Chronic hypoxemic respiratory failure J96.11 Acute on chronic respiratory failure with hypoxia and hypercapnia J96.21; J96. 22
== END 2022-07-31 15:00 | disposition hospice, home (50) | DRG 189 ==
LOC: ED 14:01 → SUATTDRO 16:25 → 4W 16:25